=== PATIENT | female | born 1950 | race Caucasian/White ===

== ENCOUNTER → 2017-03-14 | Day surgery (SDC) | payer BC ==
[2017-03-05 15:43] VITALS: BMI 44.0
[~2017-03-14] VITALS: Ht 157.5 cm; Wt 108.6 kg
[~2017-03-14] MED LIST: ALPR0.25 PO; ASPI81TA21 PO; ATROPINE SULFATE 0.1 MG/ML 5ML SYR IV PRN; BACITRACIN 50000 UNIT VIAL ONE; BACL10TA PO; BUPIVACAINE 0.5 % 5 MG/1 ML MPF 30ML VIAL ONE; CARB100C2 PO; CARB400T3 PO; DEXAMETHASONE SOD INJ 4 MG/ML VIAL ONE; EZET10TA47 PO; EpHEDrine SULFATE 50MG/5ML SYR ONE; EpHEDrine SULFATE INJ 50 MG/ML AMP IV PRN; FENTANYL CITRATE INJ 50 MCG/1 ML 2 ML VIAL IV PRN; FENTANYL CITRATE INJ 50 MCG/1 ML 2 ML VIAL ONE; GLYCOPYRROLATE INJ 0.2 MG/ML VIAL ONE; HYDROmorphone INJ 2 MG/ML SYR/VIAL ONE; LABETALOL HCL IV 5 MG/ML 20ML IV ONE; LACTATED RINGER'S 1000ML 1,000 ML IV SCH; LEVO125T5 PO; LIDOCAINE HCL 2% 2 ML VIAL (20MG/ML) ONE; LISI-725 PO; MEPERIDINE HCL 25 MG/ML CARP IV PRN; MIDAZOLAM HCL 1 MG/ML 2ML VIAL ONE; MISC4CAP PO; MONT1TAB5 PO; MoRPHine SULFATE 2 MG/ML CARP IV PRN; NEOSTIGMINE METHYLSULFATE 5 MG/5 ML SYR ONE; ONDANSETRON INJ 2 MG/ML 2 ML VIAL IV PRN; ONDANSETRON INJ 2 MG/ML 2 ML VIAL ONE; OXYC-57 PO; OXYCODONE/ACETAMINOPHEN 5-325 TAB PO PRN; PRLSR20 PO; PROMETHAZINE HCL INJ 6.25 MG in SODIUM CHLORIDE 0.9% 50ML 50 ML IV PRN; PROPOFOL IV EMULSION 10 MG/ML 20 ML VIAL IV ONE; ROCURONIUM BROMID 50MG/5ML SYR ONE; TOPI100T20 PO
[2017-03-14 07:23] VITALS: BP 160/79; PULSE 77; TEMP 36.7; O2SAT 94; Ht 157.5 cm; Wt 108.6 kg
--- NOTE | 2017-03-14 08:18 | History & Physical Bridge Note ---
H&P Re-Evaluation Bridge Note: I have examined the patient, reviewed the History & Physical and in the interval since the performance of the History & Physical I have noted the following changes of clinical significance: No changes noted pt marked bedside
--- NOTE | 2017-03-14 08:25 | Discharge Instructions ---
Discharge Instructions Date of Service March 14, 2017. Visit Reason for Visit: Incisional Hernia Discharge Discharge Diagnosis / Problem: incisional hernia repair Discharge Goals Goal(s): Decrease discomfort Activity Recommendations Activity Limitations: as noted below Lifting Limitations: no more than 10 pounds Shower/Bathe: tomorrow Driving or Machine Use: resume 3 days after discharge (if not taking Percocet) Anesthesia . Post Anesthesia Instructions: If you have had General Anesthesia or IV Sedation: * Do not drive today. * Resume driving when surgeon permits. * Do not make important decisions or sign legal documents today. * Call surgeon for: 1. Temperature elevations greater than 101 degrees F. 2. Uncontrollable pain. 3. Excessive bleeding. 4. Persistent nausea and vomiting. 5. Medication intolerance (nausea, vomiting or rash). * For nausea and vomiting use only clear liquids such as: tea, soda, bouillon until nausea subsides, then gradually increase diet as tolerated. * If you have any concerns or questions, call your surgeon's office. If physician is unavailable and it is an emergency, call 911 or go to the nearest emergency room. . Instructions / Follow-Up Instructions / Follow-Up Dr. Quintero in 1 week, call [phone] if you do not already have an appt Diet Recommendations Recommended Home Diet: no limitations Pending Studies Studies pending at discharge: no Medical Emergencies . Who to Call and When: Medical Emergencies: If at any time you feel your situation is an emergency, please call 911 immediately. . Non-Emergent Contact Non-Emergency issues call your: Surgeon Call Non-Emergent contact if: you have a fever, temperature is above 101.5, your pain is not controlled, wound has increased redness . . "Provider Documentation" section prepared by Son Hair. .
--- NOTE | 2017-03-14 10:16 | [facility] Post Operative Brief Note ---
Immediate Operative Summary Operative Date March 14, 2017. Pre-Operative Diagnosis Incisional Hernia Post-Operative Diagnosis Incarcerated Incisional Hernia dense abd adhesions Procedure(s) Performed Laproscopic Repair of Incarcerated Incisional Hernia with 10cm Suegimesh and lyses of Adhesions Surgeon Dr. Quintero Underwriting Director Surgeon(s) Son Omalley Estimated Blood Loss 10 ml Findings ncarcerated incisional hernia with defect efrain 3 cm medial aspect of subcostal incision Specimens Urine from catheter sent for routine culture and sensitivity.
--- NOTE | 2017-03-14 11:28 | Anesthesiology Progress Note ---
Anesthesia Post Op Note Date & Time March 14, 2017 at 11:26 Vital Signs Pain Intensity: 0 Vital Signs Past 12 Hours Date Time Temp Pulse Resp B/P Pulse Ox O2 Delivery O2 Flow Rate FiO2 03/14/17 11:00 62 20 150/71 95 Nasal Cannula 2 03/14/17 10:50 61 17 152/86 98 Mask 10 03/14/17 10:40 69 24 176/79 97 Mask 10 03/14/17 10:30 73 18 160/86 97 Mask 10 03/14/17 10:24 36.2 82 14 156/82 96 Mask 10 03/14/17 07:23 36.7 77 20 160/79 94 Room Air Notes Mental Status: alert / awake / arousable, participated in evaluation Pt Amnestic to Procedure: Yes Nausea / Vomiting: adequately controlled Pain: adequately controlled Airway Patency, RR, SpO2: stable & adequate BP & HR: stable & adequate Hydration State: stable & adequate Anesthetic Complications: no major complications apparent Patient developed a fine macular rash on her chest and shoulders towards the end of the surgery. She remained hemodynamically stable and did not have pruritis in the recovery room. Chart review shows intraoperative dilaudid to be the most likely candidate. Throughout pacu course, the rash faded and had near complete resolution by the time of pacu discharge.
--- NOTE | 2017-03-14 11:36 | OPERATIVE REPORT ---
DATE OF OPERATION: 03/14/2017 PREOPERATIVE DIAGNOSIS: Incarcerated incisional hernia in the subcostal incision. POSTOPERATIVE DIAGNOSIS: Same medial aspect of the incision defect approximately 3 cm, abdominal adhesions. PROCEDURE: Laparoscopic lysis of abdominal adhesions, repair of incarcerated incisional hernia with 10 cm mesh. SURGEON: Dr. Quintero. EGG FACTORY WORKER: John Hair PA-C. OPERATION AND FINDINGS: SUMMARY: The patient was brought into the operating room theater. Callahan catheter was placed. The abdomen was prepped with Betadine scrubbing solution and properly draped. Systemic antibiotics were given. I made a small incision in the umbilical area in the previously made incision from where she had a hernia repair there, went through subcutaneous tissue. We could not enter the abdomen. Therefore, I enlarged the incision sufficiently enough and able to elevate the abdominal wall with Ulisses clamps, made an incision identified that the patient had this repaired with some mesh previously; therefore, I made an incision through it, used 0 Vicryl suture as stay suture. We entered the peritoneal cavity with a 5 mm trocar. Point of entry inspected, CO2 insufflated and no injury identified, but we were able to see the patient had significant adhesions in the epigastric area. Also we were able then to place a 5 mm right upper quadrant port more in the right flank and 5 mm left upper quadrant port. We placed a camera in the subcostal port on the right and visualized the umbilical opening where we identified that the patient had omental adhesions to the anterior abdominal wall in that area, but there was no bowel and there was no evidence of any injury as we first went in. We then systematically took down all the adhesions to the anterior abdominal wall which was mostly confined just inferior to the falciform ligament. We went on and dissected out and we were able to see the incarcerated omentum into the hernial sac which was quite prominent. We at this point then were able to enlarge the opening and the hernial sac and then we were able to deliver the incarcerated omentum into the abdomen. Some fluid was appreciated in the hernial sac. There was no bowel content. Once we had identified this then I took the liberty of freeing up the falciform ligaments circumferentially around the defect since it was pulled in there and all the way to the left of the midline, so we got into the muscular fascial planes without any fatty tissue. Therefore Surgimesh would be incorporated more precisely onto the defect. We measured the defect was about a 3 cm defect. At this point we then elected to bring a 10 cm Surgimesh up onto the field, placed it through the umbilical opening into the abdomen and elevated with nylon suture centrally located into the defect. We used a ProTack systematically stapled the mesh onto the abdominal wall. I also placed in the lateral position a 0 Prolene suture tacking down the edge of the mesh onto the abdominal wall by passing the suture from the skin inside the abdomen with a Ganesh-Cut suture passer. The repair appeared to be solid. Hemostasis appeared satisfactory. At this point, individual trocars were removed. We took the nylon suture from the central portion of the original mesh. We closed then the fascial stitch in the umbilical area in the previous incision with [id number] x2 0 Prolene, 0 Dexon subcutaneously, 4-0 Monocryl skin edges. Steri-Strips applied. The procedure was tolerated well by the patient. Estimated blood loss approximately 10 mL. The patient was taken to recovery room in good condition. I attest to the content of the Intraoperative Record and any orders documented therein. Any exceptions are noted below. MTDD
[2017-03-14 11:40] VITALS: BP 135/59; PULSE 60; TEMP 36.5; O2SAT 96
[2017-03-14 12:11] VITALS: BP 133/57; PULSE 63; TEMP 36.5; O2SAT 94
[2017-03-14 12:40] VITALS: BP 133/57; PULSE 63; TEMP 36.3; O2SAT 98
[2017-03-14 13:39] VITALS: BP 133/57; PULSE 67; O2SAT 97
--- NOTE | 2017-03-18 11:52 | EDITING REQUIRED CODING QUERY ---
CQSUPPORTING DIAGNOSIS NEEDED A supporting diagnosis is required for the test/procedure performed on this patient in order for us to be reimbursed by the patient's insurance. Please provide a supporting diagnosis for the following test/procedure listed below next to the test name along with your signature. *If there is no additional diagnosis for this patient that would support the following test/procedure please document that below next to the test/procedure. Test(s)/Procedure(s) that require a supporting diagnosis: DAXA 03/14/17 URINE CULTURE Provider Signature: Date: Thank you Anya Null [employer] Once completed, please kindly fax back to [phone] For questions please call [phone]
== END | disposition home or self-care (01) ==
LOC: C.ACU 06:54
PROVIDERS: ATTEND Surgery
DX: K43.2 Incisional hernia without obstruction or gangrene (principal); K21.9 Gastro-esophageal reflux disease without esophagitis; E78.5 Hyperlipidemia, unspecified; I10 Essential (primary) hypertension; E03.9 Hypothyroidism, unspecified; G47.30 Sleep apnea, unspecified; Z90.49 Acquired absence of other specified parts of digestive tract; Z96.659 Presence of unspecified artificial knee joint; Z79.82 Long term (current) use of aspirin; Z80.3 Family history of malignant neoplasm of breast; Z82.49 Family history of ischemic heart disease and other diseases of the circulatory system; Z79.899 Other long term (current) drug therapy

== ENCOUNTER → 2017-04-11 | Outpatient (CLI) | payer BC ==
[~2017-04-11] MED LIST changes: -ATROPINE SULFATE 0.1 MG/ML 5ML SYR IV PRN; -BACITRACIN 50000 UNIT VIAL ONE; -BUPIVACAINE 0.5 % 5 MG/1 ML MPF 30ML VIAL ONE; -DEXAMETHASONE SOD INJ 4 MG/ML VIAL ONE; -EpHEDrine SULFATE 50MG/5ML SYR ONE; -EpHEDrine SULFATE INJ 50 MG/ML AMP IV PRN; -FENTANYL CITRATE INJ 50 MCG/1 ML 2 ML VIAL IV PRN; -FENTANYL CITRATE INJ 50 MCG/1 ML 2 ML VIAL ONE; -GLYCOPYRROLATE INJ 0.2 MG/ML VIAL ONE; -HYDROmorphone INJ 2 MG/ML SYR/VIAL ONE; -LABETALOL HCL IV 5 MG/ML 20ML IV ONE; -LACTATED RINGER'S 1000ML 1,000 ML IV SCH; -LIDOCAINE HCL 2% 2 ML VIAL (20MG/ML) ONE; -MEPERIDINE HCL 25 MG/ML CARP IV PRN; -MIDAZOLAM HCL 1 MG/ML 2ML VIAL ONE; -MoRPHine SULFATE 2 MG/ML CARP IV PRN; -NEOSTIGMINE METHYLSULFATE 5 MG/5 ML SYR ONE; -ONDANSETRON INJ 2 MG/ML 2 ML VIAL IV PRN; -ONDANSETRON INJ 2 MG/ML 2 ML VIAL ONE; -OXYCODONE/ACETAMINOPHEN 5-325 TAB PO PRN; -PROMETHAZINE HCL INJ 6.25 MG in SODIUM CHLORIDE 0.9% 50ML 50 ML IV PRN; -PROPOFOL IV EMULSION 10 MG/ML 20 ML VIAL IV ONE; -ROCURONIUM BROMID 50MG/5ML SYR ONE
== END | disposition home or self-care (01) ==
LOC: C.PATHSPEC 17:24
PROVIDERS: ATTEND Obstetrics & Gynecology
DX: N95.0 Postmenopausal bleeding (principal); N84.1 Polyp of cervix uteri

== ENCOUNTER → 2017-04-24 | Outpatient (CLI) | payer BC ==
--- NOTE | 2017-04-25 09:07 | MAMMOGRAPHY REPORT ---
BILATERAL DIGITAL SCREENING MAMMOGRAM TOMOSYNTHESIS WITH CAD: 04/24/2017 CLINICAL HISTORY: Routine screening. Patient has no complaints. TECHNIQUE: Breast tomosynthesis in addition to standard 2D mammography was performed. Current study was also evaluated with a Computer Aided Detection (CAD) system. COMPARISON: No prior exams were available for comparison. BREAST COMPOSITION: There are scattered areas of fibroglandular density in both breasts. FINDINGS: There are scattered benign-appearing microcalcifications in the breasts. No new suspicious mass, architectural distortion or cluster of microcalcifications is seen. IMPRESSION: ACR BI-RADS CATEGORY 1: NEGATIVE There is no mammographic evidence of malignancy. A 1 year screening mammogram is recommended. The pa tient will receive written notification of the results. Approximately 10% of breast cancers are not detected with mammography. A negative mammographic report should not delay biopsy if a clinically suggestive mass is present. Nicolette Grimes M.D. ay/:04/24/2017 16:10:28 [employer] Member: Crystal MURRAY(Paula)(Vasiliy)(EPI), [facility] letter sent: Normal 1/2 BI-RADS Code: ACR BI-RADS Category 1: Negative
== END | disposition home or self-care (01) ==
LOC: C.MAMM 14:06
PROVIDERS: ATTEND Family Medicine
DX: Z12.31 Encounter for screening mammogram for malignant neoplasm of breast (principal)

== ENCOUNTER → 2017-04-29 | Outpatient (CLI) | payer BC ==
[2017-04-29 09:49] LABS: ALT/SGPT 20 U/L (12-78); BLOOD UREA NITROGEN 12 mg/dl (7-18); BUN/CREATININE RATIO 16.7 (10-20); CALCIUM 8.4 mg/dl (8.5-10.1); CARBON DIOXIDE 28 mmol/L (21-32); CHLORIDE 104 mmol/L (98-107); CHOLESTEROL 205 mg/dl (0-200); CREATININE 0.73 mg/dl (0.60-1.20); GLUCOSE 95 mg/dl (70-99); POTASSIUM 3.9 mmol/L (3.5-5.1); SODIUM 137 mmol/L (136-145); TRIGLYCERIDES 93 mg/dl (0-150); VERY LOW DENSITY LIPOPROT CALC 19 mg/dl
[2017-04-29 10:00] LABS: CHOLESTEROL/HDL RATIO 3.2; HDL CHOLESTEROL 64 mg/dl
== END | disposition home or self-care (01) ==
LOC: C.LAB1850 08:16
PROVIDERS: ATTEND Family Medicine
DX: E78.5 Hyperlipidemia, unspecified (principal); I10 Essential (primary) hypertension; E03.9 Hypothyroidism, unspecified; G50.0 Trigeminal neuralgia

== ENCOUNTER → 2018-03-11 | Outpatient (CLI) | payer BC ==
[~2018-03-11] MED LIST changes: +ASPI-319 PO; -ASPI81TA21 PO; -OXYC-57 PO
[2018-03-11 14:07] LABS: ALT/SGPT 19 U/L (12-78); BLOOD UREA NITROGEN 17 mg/dl (7-18); CALCIUM 8.4 mg/dl (8.5-10.1); CARBON DIOXIDE 28 mmol/L (21-32); CHOLESTEROL 193 mg/dl (0-200); CREATININE 0.74 mg/dl (0.60-1.20); GLUCOSE 86 mg/dl (70-99); POTASSIUM 3.5 mmol/L (3.5-5.1); SODIUM 139 mmol/L (136-145)
[2018-03-11 14:17] LABS: LDL CHOLESTEROL CALCULATED 108 mg/dl
== END | disposition home or self-care (01) ==
LOC: C.LABMFLN 08:49
PROVIDERS: ATTEND Family Medicine
DX: Z00.00 Encounter for general adult medical examination without abnormal findings (principal); E78.5 Hyperlipidemia, unspecified; E03.9 Hypothyroidism, unspecified; I10 Essential (primary) hypertension

== ENCOUNTER → 2018-03-12 | Outpatient (CLI) | payer BC | END | disposition home or self-care (01) | LOC: C.LABMFLN 10:08 | PROVIDERS: ATTEND Family Medicine | DX: R35.0 Frequency of micturition (principal) ==

== ENCOUNTER → 2018-03-14 | Outpatient (CLI) | payer BC ==
--- NOTE | 2018-03-14 11:10 | DIAGNOSTIC IMAGING REPORT ---
BLADDER ULTRASONOGRAPHY CLINICAL HISTORY: URINARY FREQUENCY COMPARISON STUDY: CT scan dated 08/18/2016 FINDINGS: The bladder appears sonographically normal. Bilateral ureteral jets were visualized. The prevoid volume was 150 cc. The post void volume was 8 cc. IMPRESSION: Normal study Electronically signed by: Israel Lopez M.D. 03/14/2018 11:09 AM Dictated Date/Time: 03/14/2018 11:08 AM
== END | disposition home or self-care (01) ==
LOC: C.ULTR 10:30
PROVIDERS: ATTEND Family Medicine
DX: R35.0 Frequency of micturition (principal)

== ENCOUNTER 2019-04-20 06:22 | Inpatient (IN) ==
--- NOTE | 2019-03-24 12:05 | Anesthesiology Consultation ---
Date of Service March 24, 2019 Assessment & Plan (1) Encounter for pre-operative examination: PCP Clearance 03/31/19 = "appears to be average operative risk." Chart Review Chart Review: Acceptable Risk for Surgery and Patient seen in Pre Admission Testing Teaching & Discussion Instructed NPO after midnight before surgery, except medications with 15 cc of water. Medication instructions provided according to the PAT guidelines. History Surgery Operation Date: 04/20/19 07:00 Proposed Procedures p Left Total Knee Arthroplasty - Cosmo Puckett MD Height/Weight Height: 5 ft 2.5 in Weight: 109.2 kg Allergies Allergy/AdvReac Type Severity Reaction Status Date / Time nitrous oxide Allergy Severe laughing Unverified 03/17/19 08:43 gas = couldn't breath NSAIDS (Non-Steroidal Allergy Severe RAPID HR, Verified 03/17/19 08:43 Anti-Inflamma RESP DISTRESS etodolac Allergy Unknown RAPID Unverified 03/17/19 08:43 HEARTBEAT, RESPIRATORY DISTRESS naproxen Allergy Unknown RAPID Unverified 03/17/19 08:43 HEART BEATS, RESPIRATORY DISTRESS ibandronate sodium AdvReac Severe SEVERE Verified 03/17/19 08:44 MUSCLE AND BONE PAIN Medications Home Medications Medication Instructions Recorded Confirmed Last Taken aspirin 81 mg PO HS 10/22/18 03/17/19 03/16/19 carbamazepine 400 mg PO BID 10/22/18 03/17/19 03/16/19 ezetimibe 10 mg PO HS 10/22/18 03/17/19 03/16/19 levothyroxine 175 mcg PO QAM 10/22/18 03/17/19 03/17/19 lisinopril 20 mg PO QPM 10/22/18 03/17/19 03/16/19 montelukast [Singulair] 10 mg PO QPM 10/22/18 03/17/19 03/16/19 omeprazole 20 mg PO QAM 10/22/18 03/17/19 03/16/19 topiramate [Topamax] 200 mg PO BID 10/22/18 03/17/19 03/16/19 Bacillus coagulans [Digestive 1 tab PO DAILY 03/17/19 03/17/19 03/16/19 Advantage] alprazolam 0.25 mg PO UD PRN 03/17/19 03/17/19 Unknown calcium carbonate-vitamin D3 1 tab PO BID 03/17/19 03/17/19 03/16/19 [Caltrate with Vitamin D3] cholecalciferol (vitamin D3) 1,000 unit PO DAILY 03/17/19 03/17/19 03/16/19 [Vitamin D3] Past Medical History Medical History Acid reflux Anxiety Family history of reaction to anesthesia SISTER - N/V High cholesterol Hypertension Hypothyroid Sleep apnea CPAP Trigeminal neuralgia Urinary incontinence & FREQUENCY...HAS PROLAPSED BLADDER Exercise / Class Metabolic Activity II 4-5 Yardwork/Stairs/Walk up hill (Denies CP or SOB with stairs, does daily at home) Past Family History Family History Mother History of COPD Father History of heart attack Other History of heart disease History of high blood pressure Past Surgical History Surgical History Status post cholecystectomy (Resolved) H/O: hysterectomy History of section History of cholecystectomy History of colonoscopy History of endoscopy History of hernia surgery INCISIONAL History of surgery GAMMA KNIFE, FACE X 2 History of total right knee replacement 2011 [facility] History of umbilical hernia repair Past Anesthesia History Sister = PONV PT HAD "A HARD TIME WAKING UP & SEVERE SHAKING WITH UMBILICAL HERNIA REPAIR" ( [facility] 2008) BUT NO ISSUES WITH MORE RECENT SURGERIES. 2011 TKA @ [facility] = SAB + PNB WITHOUT ISSUES. History of PONV No Hx of PONV and Hx of Motion Sickness Social History Smoking Status: Never smoker Do You Dip or Chew Tobacco: No Hx Alcohol Use: No Hx Substance Use: No substance use type: does not use Review of Systems Pt denies any recent chest pain, shortness of breath, cough, fever or URI. +occ palpitations with anxiety Physical Exam Vital Signs BP: 148/82 P: 76bpm SPO2: 97% RA T: 97.8 R: 18 Constitutional + morbidly obese ENMT Mouth: + dental restorations (few crowns) and + chipped teeth; no loose teeth Thyromental Distance: > or= 3.5 Finger Breadths (4) Mallampati Class: II Neck + short neck and + thick neck; neck extension not limited Respiratory normal respiratory effort Auscultation: lungs clear to auscultation bilaterally Cardiovascular Rate/Rhythm: regular rate and regular rhythm Heart Sounds: no murmur Vessels: no carotid bruit Extremities: no edema Testing Laboratory Results 03/24/19 12:12 03/24/19 12:12 03/24/19 03/24/19 03/24/19 12:12 12:12 12:12 PT 10.0 INR 1.0 APTT 27.3 Hemoglobin A1c 5.6 Urine Color Urine Appearance Urine pH Ur Specific [place] Urine Protein Urine Glucose (UA) Urine Ketones Urine Nitrite Ur Leukocyte Esterase Blood Type O Positive Antibody Screen NEGATIVE 03/24/19 12:12 PT INR APTT Hemoglobin A1c Urine Color Yellow Urine Appearance Clear Urine pH 7.0 Ur Specific [place] 1.013 Urine Protein Negative Urine Glucose (UA) Negative Urine Ketones Negative Urine Nitrite Negative Ur Leukocyte Esterase Negative Blood Type Antibody Screen Electrocardiogram Date: 10/22/18 Findings: + NSR @ (69) Chest X-Ray Date: 10/22/18 Findings: + NAD
--- NOTE | 2019-03-24 12:12 | PAT Medication Instructions ---
Medication Instructions Date of Service March 24, 2019 Home Medications aspirin 81 mg PO HS carbamazepine 400 mg PO BID ezetimibe 10 mg PO HS levothyroxine 175 mcg PO QAM lisinopril 20 mg PO QPM montelukast [Singulair] 10 mg PO QPM omeprazole 20 mg PO QAM topiramate [Topamax] 200 mg PO BID Bacillus coagulans [Digestive Advantage] 1 tab PO DAILY alprazolam 0.25 mg PO UD PRN calcium carbonate-vitamin D3 1 tab PO BID cholecalciferol (vitamin D3) 1,000 unit PO DAILY DO NOT take the morning of surgery Bacillus coagulans [Digestive Advantage] 1 tab PO DAILY calcium carbonate-vitamin D3 1 tab PO BID cholecalciferol (vitamin D3) 1,000 unit PO DAILY Take morning of surgery With a small sip of water, OTHERWISE NOTHING TO EAT OR DRINK AFTER MIDNIGHT: carbamazepine 400 mg PO BID levothyroxine 175 mcg PO QAM omeprazole 20 mg PO QAM topiramate [Topamax] 200 mg PO BID alprazolam 0.25 mg PO UD PRN (if needed) Take evening before surgery aspirin 81 mg PO HS carbamazepine 400 mg PO BID ezetimibe 10 mg PO HS lisinopril 20 mg PO QPM montelukast [Singulair] 10 mg PO QPM topiramate [Topamax] 200 mg PO BID alprazolam 0.25 mg PO UD PRN (if needed) calcium carbonate-vitamin D3 1 tab PO BID Other Notes If you have any questions please call us at [phone] or [phone] or [phone] or [phone]
[2019-03-24 12:49] LABS: Basophils # (auto) 0.01 K/uL (0-0.2); Basophils % (auto) 0.1 %; Eosinophils # (auto) 0.13 K/uL (0-0.5); Eosinophils % (auto) 1.6 %; Hematocrit (blood only) 36.1 % (37-47); Hemoglobin 12.1 g/dL (12.0-16.0); Immature Granulocytes # (auto) 0.01 K/uL (0.00-0.02); Immature Granulocytes % (auto) 0.1 %; Lymphocytes # (auto) 1.84 K/uL (1.2-3.4); Lymphocytes % (auto) 23.3 %; Mean Corpuscular Hgb Conc 33.5 g/dL (32-36); Mean Corpuscular Volume 88.5 fL (80-100); Mean Platelet Volume 8.6 fL (7.4-10.4); Monocytes # (auto) 0.58 K/uL (0.11-0.59); Monocytes % (auto) 7.3 %; Neutrophils # (auto) 5.34 K/uL (1.4-6.5); Neutrophils % (auto) 67.6 %; Platelet Count 277 K/uL (130-400); Red Blood Count 4.08 M/uL (4.2-5.4); White Blood Count 7.91 K/uL (4.8-10.8)
[2019-03-24 12:55] LABS: Partial Thromboplastin Time 27.3 Seconds (21.0-31.0)
[2019-03-24 13:01] LABS: Estimated Average Glucose 114 mg/dl; Hemoglobin A1C 5.6 % (4.5-5.6)
[2019-03-24 13:38] LABS: Appearance Urine Clear (Clear); Bilirubin Urine Negative (Negative); Blood Urine Negative (Negative); Color Urine Yellow; Glucose Urine UA Negative (Negative); Ketones Urine Negative (Negative); Leukocyte Esterase Urine Negative (Negative); Nitrite Urine Negative (Negative); Protein Urine Negative (Negative); Specific Gravity Urine 1.013 (1.000-1.030); Urobilinogen Urine Negative (Negative)
[2019-03-24 14:44] LABS: Albumin Level 3.4 gm/dl (3.4-5.0); Calcium 9.3 mg/dl (8.5-10.1); Creatinine Clr Calc Pharmacy 80.9 ml/min; Est GFR (African American) 92.1; Est GFR (Non-African American) 79.5; Potassium 4.2 mmol/L (3.5-5.1)
--- NOTE | 2019-04-19 19:31 | History and Physical Report ---
DATE OF ADMISSION: 04/20/2019 CHIEF COMPLAINT: Chronic left knee pain. HISTORY OF PRESENT ILLNESS: This is a 69-year-old female patient of Dr. Puckett'amanda complaining of chronic left knee pain and instability, longstanding, now progressively getting worse. The patient has failed conservative treatment including intraarticular injections, anti-inflammatories, home physical therapy and use of a wrap. The patient has increased pain with weightbearing activities and her pain does interfere with her activities of daily living. The patient has been diagnosed with end-stage osteoarthritis per clinical and radiographic exam and wishes to proceed with a left total knee arthroplasty. PAST MEDICAL HISTORY: Hypertension, hypercholesterolemia, palpations secondary to anxiety, sleep apnea with use of CPAP, hypothyroidism, spine problems, osteoarthritis, sciatica, acid reflux and obesity. SOCIAL HISTORY: Nonsmoker, nondrinker. PAST SURGICAL HISTORY: , cholecystectomy, right knee replacement, umbilical hernia repair and partial hysterectomy. FAMILY HISTORY: Noncontributory. REVIEW OF SYSTEMS: Chronic left knee pain and instability; otherwise, denies any shortness of breath, chest pain, nausea, vomiting or any other joint complaints. MEDICATIONS: 1. Topiramate 200 mg twice daily. 2. Ezetimibe 10 mg at bedtime. 3. Singulair 10 mg daily. 4. Aspirin 81 mg daily. 5. Alprazolam 0.25 mg twice daily as needed. 6. Levothyroxine 175 mcg daily. 7. Carbamazepine 400 mg 3 times daily. 8. Omeprazole 20 mg every other day. 9. Shingrix 50 mcg subQ every 6 months. 10. Tylenol 325 mg as needed. 11. Lisinopril 20 mg daily. 12. Probiotic oral capsule daily. 13. Bactrim twice daily. This may be ended by the time of surgery. 14. Ibandronate 150 mg 1 tablet monthly. 15. Calcium 600 with vitamin D twice daily. ALLERGIES: LODINE, BREATHING PROBLEMS; ALEVE AND NAPROSYN, BREATHING PROBLEMS; HYDROCHLOROTHIAZIDE, GI UPSET; DITROPAN, GI UPSET; SEPTRA, GI UPSET; ALL ANTI-INFLAMMATORIES, SHE HAS GYNECOLOGICAL. PHYSICAL EXAMINATION: GENERAL: Well-developed, well-nourished 69-year-old female in no acute distress. She is alert and oriented x3 and pleasant. HEENT: Normocephalic, atraumatic. Extraocular motions are intact. Pupils are equal, reactive to light. HEART: Regular rate and rhythm, no murmurs. LUNGS: Clear. ABDOMEN: Soft, nontender, bowel sounds present. EXTREMITIES: Left knee range of motion of 0-95 degrees with the varus deformity. She has medial joint line tenderness with a mild effusion. She has crepitation with passive range of motion. She has 5/5 strength with pain. NEUROLOGIC: Neurovascularly, she is intact in her left lower extremity. DIAGNOSES: Left knee end-stage osteoarthritis, hypertension, hypercholesterolemia, palpations secondary to anxiety, sleep apnea with the use of continuous positive airway pressure, trigeminal neuralgia, hypothyroidism, spine problems, sciatica, acid reflux and obesity. PLAN: The patient was advised of her diagnosis. Indications, risks, benefits, postop course have all been reviewed. The patient wished to proceed with a left total knee arthroplasty. Necessary consent forms, preoperative testing and clearances will be obtained.
[~2019-04-20 06:22] MED LIST changes: +ACETAMINOPHEN 500 MG TAB PO SCH; -ALPR0.25 PO; -ASPI-319 PO; -BACL10TA PO; -CARB100C2 PO; -CARB400T3 PO; +CEFAZOLIN 2000MG 2,000 MG/15 ML SYR IV SCH; -EZET10TA47 PO; +FAMOTIDINE 20 MG TAB PO SCH; +GABAPENTIN 300 MG PO SCH; -LEVO125T5 PO; -LISI-725 PO; +LR 500ML BOLUS, THEN 15ML/HR IV SCH; +METOCLOPRAMIDE HCL 10 MG TABLET PO SCH; -MISC4CAP PO; -MONT1TAB5 PO; -PRLSR20 PO; +ROPIVACAINE 0.5% HCL/PF 150 MG, BUPIVACAINE 0.5% MPF 30 ML, EPINEPHrine 30MG/30ML (OR U... INFIL SCH; -TOPI100T20 PO; +TRANEXAMIC ACID 1,000 MG **IV Pre-op IV SCH; +TRANEXAMIC ACID 1,000 MG x 1 **For Topical Use TOP SCH; +dexAMETHasone 4 MG TAB PO SCH
[2019-04-20] MEDS ORDERED: TRANEXAMIC ACID 1,000 MG **IV Intra-op IV SCH (06:30)
[2019-04-20] MEDS ORDERED: BUPIVACAINE 0.5 % 5 MG/1 ML PF 10ML VIAL ONE (06:30)
[2019-04-20] MEDS ORDERED: ROPIVACAINE 0.5% 5 MG/ML 30 ML VIAL ONE (06:30)
[2019-04-20] MEDS ORDERED: EPINEPHrine INJ 1 MG/ML AMP ONE (06:48)
--- NOTE | 2019-04-20 06:52 | History & Physical Bridge Note ---
Date of Service April 20, 2019 History & Physical Bridge Note I have examined the patient, reviewed the History & Physical and in the interval since the performance of the History & Physical I have noted the following changes of clinical significance: no changes noted
[2019-04-20] MEDS ORDERED: fentaNYL citrate 100 MCG/2 ML VIAL ONE (07:47)
[2019-04-20] MEDS ORDERED: MIDAZOLAM HCL 1 MG/ML 2ML VIAL ONE (07:48)
[2019-04-20] MEDS ORDERED: ORTHO JOINT ANESTHETIC ONE (07:57)
[2019-04-20] MEDS ORDERED: BACITRACIN INJ 50,000 UNIT VIAL ONE (07:57)
[2019-04-20] MEDS ORDERED: PROPOFOL IV EMULSION 10 MG/ML 20 ML VIAL IV ONE (08:51)
[2019-04-20] MEDS ORDERED: ATROPINE SULFATE 0.1 MG/ML 10ML SYR IV PRN (09:51)
[2019-04-20] MEDS ORDERED: ePHEDrine sulfate 50 MG/ML AMP IV PRN (09:51)
--- NOTE | 2019-04-20 09:55 | Operative Report ---
Post Operative Report Pre & Post Diagnosis Operation Date: 04/20/19 09:20 Pre-Op Diagnosis: Left knee end-stage osteoarthritis, obesity BMI 43.2 Post-Op Diagnosis: Left knee end-stage osteoarthritis, obesity BMI 43.2 Procedure Operation Date: 04/20/19 09:20 Actual Procedures p Left Total Knee Arthroplasty(Left) increased difficulty BMI 43.2- Cosmo Puckett MD Surgeon Cosmo Puckett MD Band And Cuff Cutter Kendell CHILDERS Estimated Blood Loss 5 Findings Consistent with Post-Op Diagnosis Specimens Bone cuts Drains 2 Hemovac Anesthesia Type MAC Spinal Regional Complications none None Disposition Accompanied Patient To Recovery: No Disposition: Recovery Room Indications 69-year-old female with chronic left knee osteoarthritis. She has successful right knee replacement in the past. Her left knee is [id number] patellofemoral joint with a laterally translated patella with bone loss of the patella. Patient has medial compartment OA with varus knee Description of Procedure The patient was identified and taken to the operating room and anesthetized under spinal MAC regional block. Patient was placed supine on the the operating table. A pneumatic tourniquet was placed about the left obese upper thigh. The knee exam demonstrated obese knee normal range of motion lateral tracking patella patellofemoral crepitation. The involved leg was elevated exsanguinated with Esmarch bandage and the pneumatic tourniquet was raised to 350 millimeters mercury. A longitudinal incision was made across the anterior knee. Skin flaps were elevated. An incision was made into the medial retinaculum and extended up into the mid third of the quadriceps tendon and extended down to the tibial tubercle. Intra-articular findings demonstrated bone loss patellofemoral joint [id number] with a thin patella large osteophytes lateral tracking patella. Medial compartment OA grade 4 tricompartmental osteophytes varus knee. The knee was exposed by excising cruciate ligaments and menisci. The infrapatellar fat pad was resected. The fat pad over the anterior femur at the upper aspect of the articular surface was resected for placement of the component in that area. A subperiosteal peel lateral release was performed around the patella. To balance the knee releases were performed medially posterior medially and pie crusting MCL. The Gunn [employer] Nephew journey 2.0 total knee arthroplasty system was utilized for the procedure. The custom femoral cutting guide was pinned in position. The distal femoral cut was made. The size 5, 5 in 1 cutting block was placed. The anterior posterior and chamfer cuts were made. The knee was extended and a free hand cut technique was performed to the patella. The patella with was measured and the width was reproduced using a 32 patella component. 3 drill holes are made for the patella component pegs. The tibia was then subluxed. The custom tibial cutting block was pinned in position and the proximal tibial cut was made with the oscillating saw. The size 3 tibial trial was externally rotated in line with the tibial tubercle and pinned in position. The punch for the stem was used. The femoral trial was inserted and centered the notch cutting devices were used and the collet was placed. Tibial trials were used for the insert. The size 11 trial gave balanced ligaments through full range of motion. Patella tracking was assessed with range of motion. The patella tracked laterally so a formal lateral release was performed leaving as much of the synov ium intact as possible. The patella tracked centrally.. The trials were removed. The Orthomix anesthetic cocktail was injected per protocol. The cut bone surfaces and soft tissue were copiously irrigated with antibiotic solution with bacitracin. The final components were cemented with Simplex cement. The final components were Gunn [employer] Nephew journey 2.0 size 5 left femur, 3 primary tibial baseplate, 11 mm posterior stabilized polyethylene, 32 symmetrical patella. While the cement cured the Betadine soak was used per protocol. When the cement cured the knee was copiously irrigated with pulsatile lavage antibiotic solution with bacitracin. 2 drains were brought out laterally connected to Hemovac. The quadriceps tendon and medial retinaculum were closed with interrupted [id number] #1 Vicryl sutures. The knee was taken through full range of motion and repair was secure. The subcutaneous tissues were closed with 2-0 Vicryl sutures. The skin was closed with chana. A sterile dressing was applied. The tourniquet was let down and the patient had good capillary refill to the extremity. The patient tolerated the procedure well. There was some increased level difficulty due to morbid obesity. My physician learning support assistant Kendell CHILDERS assisted in the procedure including prepping draping leg positioning soft tissue retraction instrument management and assisted in the closure ,dressings application and will participate in postoperative care the patient. I attest to the content of the Intraoperative Record and any orders documented therein. Any exceptions are noted below.
--- NOTE | 2019-04-20 10:58 | XRay Report ---
XR knee LT 2V routine CLINICAL HISTORY: 69 years-old Female presenting with Surgical Post Op. TECHNIQUE: Frontal and crosstable lateral views of the left knee were obtained. COMPARISON: None. FINDINGS: Postsurgical changes of total left knee arthroplasty with patellar resurfacing. No periprosthetic fra cture or periprosthetic lucency. The orientation of the tibial plateau component may be within the ex pected range of normal relative to the long axis of the tibia. No significant malalignment. A surgica l drain is in place. Overlying skin chana. Expected soft tissue emphysema. IMPRESSION: Expected postsurgical appearance status post total left knee arthroplasty with patellar resurfacing. Electronically signed by: Freddy Cardenas M.D. 04/20/2019 10:57 AM
--- NOTE | 2019-04-20 10:58 | Anesthesiology Progress Note ---
Date of Service April 20, 2019 Anesthesia Post Procedure Vital Signs Vital Signs: Temp Pulse Pulse Resp BP Pulse Ox 04/20/19 10:35 67 14 133/62 100 04/20/19 10:25 36.9 C 76 14 132/60 95 04/20/19 06:55 36.5 C 81 20 176/95 H 98 Pain Intensity Left Knee: Pain Intensity: 0 Transfer of Care Handoff Completed per policy Notes Mental Status: alert / awake / arousable Patient Amnestic to Procedure: Yes Nausea / Vomiting: adequately controlled Pain: adequately controlled Airway Patency, RR, SpO2: stable & adequate BP & HR: stable & adequate Hydration State: stable & adequate Neuraxial Anesthesia: was administered and sensory block is resolving Anesthetic Complications: no major complications apparent
[2019-04-20] MEDS ORDERED: METOCLOPRAMIDE HCL INJ 5 MG/ML 2 ML VIAL IV PRN (11:21)
[2019-04-20] MEDS ORDERED: MAGNESIUM HYDROXIDE SUSP 30 ML UDC PO PRN (11:21)
[2019-04-20] MEDS ORDERED: NALOXONE HCL 0.4 MG/1 ML VIAL/CARP IV PRN (11:21)
[2019-04-20] MEDS ORDERED: BISACODYL 10 MG SUPP PR PRN (11:21)
[2019-04-20] MEDS ORDERED: ALPRAZolam 0.25 MG TABLET PO PRN (11:21)
[2019-04-20] MEDS ORDERED: NO NSAIDS SCH (11:21)
[2019-04-20] MEDS: SODIUM CHLORIDE 0.9% 1000ML 1,000 ML IV SCH ×2 (13:05→21:02)
[2019-04-20] MEDS: ACETAMINOPHEN 500 MG TAB PO SCH ×2 (13:33→21:01)
--- NOTE | 2019-04-20 13:54 | Hospitalist Consultation ---
Date of Consultation April 20, 2019 Assessment & Plan (1) Knee pain, chronic: s/p L TKA on 04/20 Pre-op Hb 12.1 (2) Respiratory abnormality, unspecified: Not feeling frankly SOB now and no hx of this as outpt, but notes that she is unable to move her IS as well as recommended States hx of significant second hand smoke exposure while growing up and two sisters with COPD despite no personal cigarette use Advised that this could be some lingering effects of anesthesia and intubation Pt should continue to use IS during admission and even at home to monitor for improvement If no ongoing improvement, pt could benefit from PFTs as outpt Pt advised to discuss with PCP if it is an ongoing issue (3) Urinary incontinence: No current meds due to hx of ineffectiveness (4) DONNY (obstructive sleep apnea): Home CPAP, pt has with her (5) Hypothyroid: continue home meds (6) Hyperlipidemia: continue home meds (7) HTN (hypertension): continue home meds (8) GERD (gastroesophageal reflux disease): continue home meds (9) Anxiety: States she has not used xanax in years, but does keep a current rx "just in case" (10) Trigeminal neuralgia: continue home meds (11) DVT prophylaxis: As per ortho History of Present Illness Reason for Consultation: Medical manamgement Requesting Physician: Dr. Puckett Attending Physician: Cosmo Puckett MD History of Present Illness 69 y/o F who was admitted on 04/20 s/p L TKA with Dr. Puckett. Pt is doing well post-op. Tolerating PO without issue. Pt denies fever, SOB, chest pain, abd pain, n/v/c/d. She has no pain to her LE at this time and feels this surgery is much more advanced than when she had her other knee done in 2011. She is very happy with her current status. Pt states she does occasionally get LE swelling, but not so far today. FH is noted for anesthesia rxn. Pt states her sister has severe n/v s/p anesthesia. Pt states that she herself has had some trouble in the past, but not as extreme as her sister. She has had no issues yet today. Pt does note that she is having some difficulty with her incentive spirometer. She is not able to move it as high as recommended. She does note that both of her sisters have been dx with COPD, despite neither having ever smoked due to second hand smoke exposure growing up. Pt herself was also never a smoker. She has never had breathing issues in the past and has therefore not been tested. Allergies Allergy/AdvReac Type Severity Reaction Status Date / Time nitrous oxide Allergy Severe laughing Verified 04/20/19 06:46 gas = couldn't breath NSAIDS (Non-Steroidal Allergy Severe RAPID HR, Verified 04/20/19 06:46 Anti-Inflamma RESP DISTRESS etodolac Allergy Unknown RAPID Verified 04/20/19 06:46 HEARTBEAT, RESPIRATORY DISTRESS naproxen Allergy Unknown RAPID Verified 04/20/19 06:46 HEART BEATS, RESPIRATORY DISTRESS ibandronate sodium AdvReac Severe SEVERE Verified 04/20/19 06:46 MUSCLE AND BONE PAIN Home Medications Home Medications Medication Instructions Recorded Confirmed Type aspirin 81 mg PO HS 10/22/18 04/20/19 History carbamazepine 400 mg PO BID 10/22/18 04/20/19 History ezetimibe 10 mg PO HS 10/22/18 04/20/19 History levothyroxine 175 mcg PO QAM 10/22/18 04/20/19 History lisinopril 20 mg PO QPM 10/22/18 04/20/19 History montelukast [Singulair] 10 mg PO QPM 10/22/18 04/20/19 History omeprazole 20 mg PO QAM 10/22/18 04/20/19 History topiramate [Topamax] 200 mg PO BID 10/22/18 04/20/19 History Bacillus coagulans [Digestive 1 tab PO DAILY 03/17/19 04/20/19 History Advantage] alprazolam 0.25 mg PO UD PRN 03/17/19 04/20/19 History calcium carbonate-vitamin D3 1 tab PO BID 03/17/19 04/20/19 History [Caltrate with Vitamin D3] cholecalciferol (vitamin D3) 1,000 unit PO DAILY 03/17/19 04/20/19 History [Vitamin D3] Patient History Medical History Acid reflux Anxiety Family history of reaction to anesthesia SISTER - N/V High cholesterol Hypertension Hypothyroid Sleep apnea CPAP Trigeminal neuralgia Urinary incontinence & FREQUENCY...HAS PROLAPSED BLADDER Surgical History History of section History of cholecystectomy History of colonoscopy History of endoscopy History of hernia surgery INCISIONAL History of surgery GAMMA KNIFE, FACE X 2 History of total right knee replacement 2011 [facility] History of umbilical hernia repair Status post cholecystectomy (Resolved) H/O: hysterectomy Family History Mother History of COPD Father History of heart attack Other History of heart disease History of high blood pressure Social History Preferred Language: [place] Communication Ability: Effective Lump Roller Required: No Beliefs That Will Affect Care: None Current Living Situation: Spouse Other Information That Helps Us Care for You: No Feels Safe at Home: Yes Smoking Status: Never smoker Do You Dip or Chew Tobacco: No Second Hand Exposure: Yes (2 sisters dx with COPD despite no hx of smoking, felt to be due to exposure) Hx Alcohol Use: No Hx Substance Use: No Review of Systems Review of Systems: Pertinent positives and negatives reviewed in HPI--all others negative Physical Exam Constitutional: WD/WN, vitals as above Eyes: normal visual francois by confrontation and + anicteric sclerae Neck: normal visual inspection and trachea midline Respiratory: normal respiratory effort, lungs clear to auscultation Cardiovascular: Rate/Rhythm: regular rate and regular rhythm Gastrointestinal (Abdomen): Inspection/Auscultation: abdomen not distended Percussion/Palpation: abdomen soft; abdomen nontender Musculoskeletal: Head/Neck/Chest: normocephalic and head atraumatic negative for edema, peripheral pulses intact Skin: no rashes, warm and dry Neurologic: awake; not confused Speech / Cognition: normal speech Psychiatric: A+Ox3, euthymic affect Results & Data Vital Signs (Past 12 Hours) Vital Signs Temp Pulse Pulse Pulse Resp BP BP 04/20/19 12:51 36.5 C 68 16 149/84 H 04/20/19 12:02 36.3 C L 74 16 146/85 H 04/20/19 11:33 65 18 136/86 04/20/19 11:05 36.3 C L 72 16 133/76 04/20/19 10:58 36.5 C 04/20/19 10:56 71 19 140/73 04/20/19 10:55 69 12 04/20/19 10:51 74 16 122/81 04/20/19 10:50 70 16 04/20/19 10:46 67 14 136/63 04/20/19 10:45 75 14 04/20/19 10:41 67 15 130/78 04/20/19 10:40 69 14 04/20/19 10:36 76 14 133/62 04/20/19 10:35 70 67 12 133/62 04/20/19 10:31 69 14 124/68 04/20/19 10:30 69 14 04/20/19 10:25 36.9 C 78 76 15 132/60 132/60 04/20/19 06:55 36.5 C 81 20 176/95 H Pulse Ox 04/20/19 12:51 99 04/20/19 12:02 98 04/20/19 11:33 98 04/20/19 11:05 98 04/20/19 10:58 100 04/20/19 10:56 98 04/20/19 10:55 97 04/20/19 10:51 99 04/20/19 10:50 100 04/20/19 10:46 100 04/20/19 10:45 98 04/20/19 10:41 100 04/20/19 10:40 100 04/20/19 10:36 96 04/20/19 10:35 98 04/20/19 10:31 100 04/20/19 10:30 100 04/20/19 10:25 100 04/20/19 06:55 98 PG Care Time/CCT Total # of Minutes Spent Total Time Spent with Patient: Total time spent is greater than 50% in coordination of care (as documented) at patient's floor/unit and/or counseling patient:
[2019-04-20] MEDS: OXYCODONE HCL IR 5 MG TAB (IMMEDIATE RELEASE) PO PRN ×2 (14:08→23:52)
[2019-04-20] MEDS: CEFAZOLIN 2000MG 2,000 MG/15 ML SYR IV SCH ×2 (18:04→23:55)
[2019-04-20] MEDS: CALCIUM 600MG + VIT D 400 IU TAB PO SCH (20:39)
[2019-04-20] MEDS: DOCUSATE SODIUM 100 MG CAP PO SCH (20:39)
[2019-04-20] MEDS: SENNA 8.6 MG TAB PO SCH (20:39)
[2019-04-20] MEDS: MONTELUKAST SODIUM 10 MG TABLET PO SCH (20:40)
[2019-04-20] MEDS: CARBAMAZEPINE 200 MG TABCR PO SCH (20:40)
[2019-04-20] MEDS: TOPIRAMATE 100 MG TAB PO SCH (20:40)
[2019-04-20] MEDS: LISINOPRIL 20 MG TAB PO SCH (20:41)
[2019-04-20] MEDS: EZETIMIBE 10 MG TABLET PO SCH (20:41)
[2019-04-21] MEDS: OXYCODONE HCL IR 5 MG TAB (IMMEDIATE RELEASE) PO PRN ×2 (05:24→23:38)
[2019-04-21] MEDS: ACETAMINOPHEN 500 MG TAB PO SCH ×3 (05:25→21:26)
[2019-04-21] MEDS: LEVOTHYROXINE SODIUM 175 MCG TABLET PO SCH (05:26)
[2019-04-21 06:36] LABS: Hematocrit (blood only) 29.2 % (37-47); Hemoglobin 9.6 g/dL (12.0-16.0); Mean Corpuscular Hgb Conc 32.9 g/dL (32-36); Mean Platelet Volume 8.7 fL (7.4-10.4); Platelet Count 230 K/uL (130-400); RDW Standard Deviation 43.7 fL (36.4-46.3); Red Blood Count 3.21 M/uL (4.2-5.4); White Blood Count 11.23 K/uL (4.8-10.8)
[2019-04-21 07:08] LABS: BUN Creatinine Ratio 23.5 (10-20); Calcium 8.6 mg/dl (8.5-10.1); Creatinine Clr Calc Pharmacy 85.3 ml/min; Est GFR (African American) 98.3; Est GFR (Non-African American) 84.9
[2019-04-21] MEDS: ONDANSETRON INJ 2 MG/ML 2 ML VIAL IV PRN ×2 (08:07→23:38)
[2019-04-21] MEDS: TOPIRAMATE 100 MG TAB PO SCH ×2 (09:03→20:18)
[2019-04-21] MEDS: CARBAMAZEPINE 200 MG TABCR PO SCH ×3 (09:03→20:17)
[2019-04-21] MEDS: PANTOprazole 40 MG TAB PO SCH (09:03)
[2019-04-21] MEDS: CALCIUM 600MG + VIT D 400 IU TAB PO SCH ×2 (09:03→20:17)
[2019-04-21] MEDS: DOCUSATE SODIUM 100 MG CAP PO SCH ×2 (09:03→20:17)
[2019-04-21] MEDS: MULTIVITAMIN TAB PO SCH (09:03)
[2019-04-21] MEDS: ENOXAPARIN INJ 40 MG/0.4 ML SYR SQ SCH (09:04)
[2019-04-21] MEDS: CHOLECALCIFEROL 1,000 UNITS TAB PO SCH (09:04)
--- NOTE | 2019-04-21 09:12 | Anesthesiology Progress Note ---
Date of Service April 21, 2019 Anesthesia Post Procedure Vital Signs Vital Signs: Temp Pulse Pulse Pulse Resp BP BP 04/21/19 07:00 36.5 C 67 16 137/79 04/21/19 03:04 36.7 C 72 16 137/73 04/20/19 23:06 36.7 C 71 16 134/77 04/20/19 19:06 36.8 C 83 17 141/82 H 04/20/19 15:26 36.5 C 76 17 141/83 H 04/20/19 14:02 74 18 142/83 H 04/20/19 12:51 36.5 C 68 16 149/84 H 04/20/19 12:02 36.3 C L 74 16 146/85 H 04/20/19 11:33 65 18 136/86 04/20/19 11:05 36.3 C L 72 16 133/76 04/20/19 10:58 36.5 C 04/20/19 10:56 71 19 140/73 04/20/19 10:55 69 12 04/20/19 10:51 74 16 122/81 04/20/19 10:50 70 16 04/20/19 10:46 67 14 136/63 04/20/19 10:45 75 14 04/20/19 10:41 67 15 130/78 04/20/19 10:40 69 14 04/20/19 10:36 76 14 133/62 04/20/19 10:35 70 67 12 133/62 04/20/19 10:31 69 14 124/68 04/20/19 10:30 69 14 04/20/19 10:25 36.9 C 78 76 15 132/60 132/60 Pulse Ox 04/21/19 07:00 95 04/21/19 03:04 94 04/20/19 23:06 97 04/20/19 19:06 97 04/20/19 15:26 98 04/20/19 14:02 100 04/20/19 12:51 99 04/20/19 12:02 98 04/20/19 11:33 98 04/20/19 11:05 98 04/20/19 10:58 100 04/20/19 10:56 98 04/20/19 10:55 97 04/20/19 10:51 99 04/20/19 10:50 100 04/20/19 10:46 100 04/20/19 10:45 98 04/20/19 10:41 100 04/20/19 10:40 100 04/20/19 10:36 96 04/20/19 10:35 98 04/20/19 10:31 100 04/20/19 10:30 100 04/20/19 10:25 100 Pain Intensity Left Knee: Pain Intensity: 6 Notes Mental Status: alert / awake / arousable Patient Amnestic to Procedure: Yes Nausea / Vomiting: improving with treatment (pt states she did not have nausea immediately after surgery; she is now having nausea; thinks it's related to pain level; ) Pain: improving with treatment Airway Patency, RR, SpO2: stable & adequate BP & HR: stable & adequate Hydration State: stable & adequate Neuraxial Anesthesia: was administered and sensory block resolved Anesthetic Complications: no major complications apparent
[2019-04-21] MEDS: HYDROmorphone INJ 0.5 MG/0.5 ML SYR IV PRN ×3 (09:30→18:47)
--- NOTE | 2019-04-21 12:20 | Orthopedic Progress Note ---
Date of Service April 21, 2019 Assessment & Plan (1) Status post left knee replacement: 69 yo female stable POD #1 s/p left TKA 1. Med management 2. DVT prophylaxis- Lovenox, SCDs 3. PT/OT 4. D/C planning- home w/ OPPT Subjective Pt resting in bed, pain controlled, denies complaints Physical Exam Physical Exam: Toes mobile, N/V/I, dressing and prevena in place Results & Data Vital Signs (Past 12 Hours) Vital Signs Temp Pulse Resp BP Pulse Ox 04/21/19 11:40 36.8 C 75 18 148/78 H 98 04/21/19 07:00 36.5 C 67 16 137/79 95 04/21/19 03:04 36.7 C 72 16 137/73 94 Laboratory Results 04/21/19 04/21/19 Range/Units 06:10 06:10 WBC 11.23 H (4.8-10.8) K/uL RBC 3.21 L (4.2-5.4) M/uL Hgb 9.6 L (12.0-16.0) g/dL Hct 29.2 L (37-47) % MCV 91.0 (80-100) fL MCH 29.9 (25-34) pg MCHC 32.9 (32-36) g/dL RDW Std Deviation 43.7 (36.4-46.3) fL RDW Coeff of Purnima 13.0 (11.5-14.5) % Plt Count 230 (130-400) K/uL MPV 8.7 (7.4-10.4) fL Sodium 136 (136-145) mmol/L Potassium 4.0 (3.5-5.1) mmol/L Chloride 105 (98-107) mmol/L Carbon Dioxide 27 (21-32) mmol/L Anion Gap 4.0 (3-11) BUN 17 (7-18) mg/dl Creatinine 0.72 (0.6-1.2) mg/dl Est Cr Clr Drug Dosing 85.3 ml/min Est GFR ( Amer) 98.3 Est GFR (Non-Af Amer) 84.9 BUN/Creatinine Ratio 23.5 H (10-20) Glucose 114 H (70-99) mg/dl Calcium 8.6 (8.5-10.1) mg/dl
[2019-04-21] MEDS ORDERED: POLYETHYLENE (MIRALAX) 17 GM PACK PO PRN (16:28)
--- NOTE | 2019-04-21 16:35 | Hospitalist Progress Note ---
Date of Service April 21, 2019 Assessment & Plan (1) Knee pain, chronic: s/p L TKA on 04/20 Pre-op Hb 12.1, POD#1 hgb down to 9.6 but hemodynamically stable -pain control remains a big issue-continues on IV dilaudid prn, APAP, oxycodone prn --with nausea and constipation also being issues fo rher--> continue docusate, senna, and add Miralax, encouraged Reglan use (2) Urinary incontinence: No current meds due to hx of ineffectiveness (3) DONNY (obstructive sleep apnea): Home CPAP, pt has with her (4) Hypothyroid: continue home levothyroxine recent TSH 2.29 in 02/2019 (5) Hyperlipidemia: continue home Zetia (6) HTN (hypertension): Controlled -continue home lisinopril (7) GERD (gastroesophageal reflux disease): continue homePPI (8) Anxiety: States she has not used xanax in years, but does keep a current rx "just in case"-not needed (9) Trigeminal neuralgia: continue home tegretol, topamax (10) DVT prophylaxis: Lovenox SQ Dispo-remain hospitalized for improved pain control Medically stable. Hospitalist Service will sign off at this point. Please feel free to reconsult if new or acute issues arise. Subjective Having some nausea and had a lot of pain in the left knee earlier today that improved with IV dilaudid nausea somewhat improved with Zofran but now returning. No BM today but passing a lot of flatus Not eating much today Review of Systems Review of Systems: All systems reviewed & are unremarkable except as noted in HPI & below (no CP, no SOB, no abd pain) Physical Exam Constitutional: WD/WN, vitals as above + morbidly obese Eyes: PERRL, conjunctivae normal, anicteric sclerae ENMT: external ear and nose normal, oropharynx normal Neck: trachea midline, no thyromegaly Respiratory: normal respiratory effort, lungs clear to auscultation Cardiovascular: RRR, no murmur, no edema Gastrointestinal (Abdomen): normal bowel sounds, soft, nontender, no hepatosplenomegaly Musculoskeletal: Extremities: + extremities abnormal to inspection (LLE in RAYMON wrap with Prevena vac in place with bloody drainage), no cyanosis and no clubbing Skin: no rashes, warm and dry Neurologic: moves all extremities and awake; no focal motor deficits Psychiatric: A+Ox3, euthymic affect Results & Data Vital Signs (Past 12 Hours) Vital Signs Temp Pulse Resp BP Pulse Ox 04/21/19 15:10 99 04/21/19 15:03 37.1 C 80 16 138/77 96 04/21/19 11:40 36.8 C 75 18 148/78 H 98 04/21/19 07:00 36.5 C 67 16 137/79 95 Laboratory Results 04/21/19 04/21/19 Range/Units 06:10 06:10 WBC 11.23 H (4.8-10.8) K/uL RBC 3.21 L (4.2-5.4) M/uL Hgb 9.6 L (12.0-16.0) g/dL Hct 29.2 L (37-47) % MCV 91.0 (80-100) fL MCH 29.9 (25-34) pg MCHC 32.9 (32-36) g/dL RDW Std Deviation 43.7 (36.4-46.3) fL RDW Coeff of Purnima 13.0 (11.5-14.5) % Plt Count 230 (130-400) K/uL MPV 8.7 (7.4-10.4) fL Sodium 136 (136-145) mmol/L Potassium 4.0 (3.5-5.1) mmol/L Chloride 105 (98-107) mmol/L Carbon Dioxide 27 (21-32) mmol/L Anion Gap 4.0 (3-11) BUN 17 (7-18) mg/dl Creatinine 0.72 (0.6-1.2) mg/dl Est Cr Clr Drug Dosing 85.3 ml/min Est GFR ( Amer) 98.3 Est GFR (Non-Af Amer) 84.9 BUN/Creatinine Ratio 23.5 H (10-20) Glucose 114 H (70-99) mg/dl Calcium 8.6 (8.5-10.1) mg/dl PG Care Time/CCT Total # of Minutes Spent Total Time Spent with Patient: Total time spent is greater than 50% in coordination of care (as documented) at patient's floor/unit and/or counseling patient:
[2019-04-21] MEDS: SENNA 8.6 MG TAB PO SCH (20:17)
[2019-04-21] MEDS: MONTELUKAST SODIUM 10 MG TABLET PO SCH (20:17)
[2019-04-21] MEDS: LISINOPRIL 20 MG TAB PO SCH (20:18)
[2019-04-21] MEDS: EZETIMIBE 10 MG TABLET PO SCH (20:18)
[2019-04-22] MEDS: ACETAMINOPHEN 500 MG TAB PO SCH (05:32)
[2019-04-22] MEDS: LEVOTHYROXINE SODIUM 175 MCG TABLET PO SCH (05:33)
[2019-04-22 06:49] LABS: Hematocrit (blood only) 27.9 % (37-47); Hemoglobin 9.1 g/dL (12.0-16.0); Mean Corpuscular Hgb Conc 32.6 g/dL (32-36); Mean Corpuscular Volume 91.2 fL (80-100); Mean Platelet Volume 8.7 fL (7.4-10.4); Platelet Count 244 K/uL (130-400); RDW Coefficient of Variation 13.2 % (11.5-14.5); RDW Standard Deviation 44.5 fL (36.4-46.3); Red Blood Count 3.06 M/uL (4.2-5.4); White Blood Count 8.68 K/uL (4.8-10.8)
[2019-04-22 07:14] LABS: BUN Creatinine Ratio 21.6 (10-20); Est GFR (African American) 102.2; Est GFR (Non-African American) 88.2; Potassium 3.7 mmol/L (3.5-5.1)
--- NOTE | 2019-04-22 07:24 | Orthopedic Progress Note ---
Date of Service April 22, 2019 Assessment & Plan (1) Status post left knee replacement: 69 yo female stable POD #2 s/p left TKA 1. Med management 2. DVT prophylaxis- Lovenox, SCDs 3. PT/OT 4. D/C planning- home w/ HH today. Subjective Pt resting in bed, pain controlled, POD #2. States having some nausea, states last time she was in hospital same thing happened. Denies SOB, CP, N/V. Results & Data Vital Signs (Past 12 Hours) Vital Signs Temp Pulse Resp BP BP Pulse Ox 04/21/19 22:56 37.1 C 82 16 139/79 154/81 H 96
[2019-04-22] MEDS: OXYCODONE HCL IR 5 MG TAB (IMMEDIATE RELEASE) PO PRN ×2 (07:36→12:27)
[2019-04-22] MEDS: DOCUSATE SODIUM 100 MG CAP PO SCH (08:30)
[2019-04-22] MEDS: CARBAMAZEPINE 200 MG TABCR PO SCH (08:30)
[2019-04-22] MEDS: TOPIRAMATE 100 MG TAB PO SCH (08:30)
[2019-04-22] MEDS: CALCIUM 600MG + VIT D 400 IU TAB PO SCH (08:31)
[2019-04-22] MEDS: MULTIVITAMIN TAB PO SCH (08:31)
[2019-04-22] MEDS: PANTOprazole 40 MG TAB PO SCH (08:31)
[2019-04-22] MEDS: CHOLECALCIFEROL 1,000 UNITS TAB PO SCH (08:31)
[2019-04-22] MEDS: ENOXAPARIN INJ 40 MG/0.4 ML SYR SQ SCH (08:31)
[2019-04-22] MEDS: ONDANSETRON INJ 2 MG/ML 2 ML VIAL IV PRN (12:36)
--- NOTE | 2019-05-06 01:12 | Discharge Summary ---
HISTORY OF PRESENT ILLNESS: This is a 69-year-old female patient of Dr. Puckett'amanda complaining of chronic left knee pain and instability, longstanding, now progressively getting worse. The patient failed conservative treatment and elected to proceed with a left total knee arthroplasty. PAST MEDICAL HISTORY: Hypertension, hypercholesterolemia, palpatations secondary to anxiety, sleep apnea with the use of CPAP, hypothyroidism, spine problems, osteoarthritis, sciatica, acid reflux, and obesity. POSTOPERATIVE COURSE: The patient underwent a left total knee arthroplasty on 04/20/2019. She was followed closely with medical consultation, DVT prophylaxis in the form of Lovenox, physical therapy, and pain control. The patient did well postoperatively and was discharged home on postoperative day #2. PHYSICAL EXAMINATION ON DISCHARGE: Dressings are clean, dry, and intact. There was no redness or drainage. She had no calf tenderness. Negative Homans sign. Toes and ankle were mobile. Neurologically and neurovascularly she was intact in her left lower extremity. DIAGNOSIS: Status post left total knee arthroplasty, hypertension, hypercholesterolemia, palpations secondary to anxiety, sleep apnea with the use of CPAP, hypothyroidism, spine problems, osteoarthritis, sciatica, acid reflux, and obesity. PLAN: The patient was discharged home with home health services. She will continue with preadmission medications with the addition of Lovenox and pain medications. She will follow up as scheduled as an outpatient. BRAYDON
== END 2019-04-22 14:10 | disposition home or self-care (01) | DRG 470 ==
LOC: ASU 06:22 → 3E 10:30

== ENCOUNTER 2021-05-21 21:19 | Observation (INO) ==
[2021-05-21] MEDS ORDERED: MECLIZINE HCL 25 MG TAB PO STA ×2 (23:16→23:18)
[2021-05-21] MEDS ORDERED: SODIUM CHLORIDE 0.9% 1000ML 1,000 ML IV ONE (23:18)
--- NOTE | 2021-05-22 00:01 | Emergency Department Note ---
Impression & Plan Dizzy, Ambulatory dysfunction ED Provider Note NAME: LAURIE SCHMITZ AGE: 71 SEX: F : 1950 ARRIVES VIA: Walk-In INFORMANT: Patient ED PROVIDER(S): Erwin Auguste DO CHIEF COMPLAINT: Dizzy HPI: Patient is a 69-year-old female who presents ER for dizziness/lig htheadedness. Symptoms started over 24 hours ago. She notes that it is constant. There is no exacerbating or remitting factors. She does not feel as though anything is moving. She has trouble walking and has to hold onto things to ambulate and not fall. She feels lightheaded and slightly off balance. She denies any focal weakness of her arms or legs. No chest pain, shortness of breath, nausea, vomiting, or diarrhea. She does admit to some twitching in the upper extremities which is normal for her although may be slightly worse. No headache or neck pain. No other exacerbating or remitting factors. She does follow with not many neurology already. ROS: See above HPI for pertinent positives & negatives. A total of 10 systems reviewed and were otherwise negative. PAST MEDICAL HISTORY:See Below PAST SURGICAL HISTORY:See Below FAMILY HISTORY:See Below SOCIAL HISTORY:See Below HOME MEDICATIONS:See Below ALLERGIES:See Below VITALS:See Below PHYSICAL EXAMINATION: GENERAL: Sitting up in bed, alert, well appearing, well nourished, no distress, non-toxic EYE EXAM: normal conjunctiva. PERRL and EOM's intact. OROPHARYNX: no exudate, no erythema, lips, buccal mucosa, and tongue normal and mucous membranes are moist NECK: supple, no nuchal rigidity, no adenopathy, non-tender LUNGS: Clear to auscultation. Normal chest wall mechanics HEART: no murmurs, S1 normal and S2 normal ABDOMEN: abdomen soft, non-tender, normo-active bowel sounds, no masses, no rebound or guarding. UPPER EXTREMITIES: upper extremities are grossly normal. LOWER EXTREMITIES: No pitting edema. NEURO EXAM: Normal sensorium, cranial nerves II-XII intact, normal speech, no weakness of arms, no weakness of legs. No drift. Finger to nose intact. Gross sensation intact. Ambulates without difficulty. MEDICAL DECISION MAKING: Patient is a 71-year-old female who presents the ER for dizziness. She is having trouble ambulating. IV was established blood work was obtained. Sympto ms have been present for the past 24 hours. No exacerbating or remitting factors. Labs show no significant leukocytosis or anemia. BMP and lipase was unremarkable. Troponin was negative. UA was clean. CT as well as CT angio of the head and neck was negative. EKG was nondiagnostic. Patient was was given fluids and Antivert. Symptoms are still present and she cannot walk without support. Discussed with the hospitalist for further evaluation. Triage Nursing notes reviewed. Limited review of prior medical records performed Vital Signs: reviewed and remarkable for no significant abnormalities Differential diagnosis: Differential diagnosis includes etiologies such as benign positional vertigo, dehydration, hypovolemia, anemia, tumor, infection, hypoglycemia, electrolyte abnormalities, cardiac sources, intracerebral event, toxicologic, neurological, as well as others were entertained. ER treatment provided: See below Diagnostics interpreted by me: ECG: Sinus rhythm rate of 72 Normal axis No PVCs QTC 433 Cardiac Monitoring: An order was placed for continuous cardiac monitoring. The monitor shows a rate of 62 with sinus rhythm. Laboratory studies: As stated above and show below. Imaging studies: CT head as well as CT angio of the head and neck were negative per stat read Consultation(s): Discussed with Ace Palma for further evaluation Procedures: none Critical Care: None Past Med/Surg History Medical History (Updated 05/22/21 @ 02:19 by Erwin Auguste DO) Acid reflux Anxiety Anxiety Anxiety disorder Chronic gastroesophageal reflux disease Diverticulitis Family history of reaction to anesthesia SISTER - N/V GERD (gastroesophageal reflux disease) High cholesterol HTN (hypertension) Hyperlipidemia Hypertension Hypertension, benign Hypothyroid Hypothyroid DONNY (obstructive sleep apnea) Osteoporosis Sleep apnea CPAP Trigeminal neuralgia Trigeminal neuralgia Urinary incontinence & FREQUENCY...HAS PROLAPSED BLADDER Urinary incontinence Surgical History H/O: hysterectomy History of section History of cholecystectomy History of colonoscopy History of endoscopy History of hernia surgery INCISIONAL History of surgery GAMMA KNIFE, FACE X 2 History of total right knee replacement 2011 [facility] History of umbilical hernia repair Status post cholecystectomy Status post left knee replacement Family History Mother History of COPD Emphysema lung Father History of heart attack Sister COPD (chronic obstructive pulmonary disease) Other History of heart disease History of high blood pressure Social History Smoking Status: Never smoker Second Hand Exposure: No (2 sisters dx with COPD despite no hx of smoking, felt to be due to exposure); Hx Alcohol Use: No Hx Substance Use: No Preferred Language: Pakistani Communication Ability: Effective Hearing Ability: Normal Concierge Required: No Beliefs That Will Affect Care: None marital status: Current Living Situation: Family Current Living Situation Comment: spouse and adult daughter current occupational status: retired How many Children do You have: 3 Feels Safe at Home: Yes Childhood Exposure to Second-Hand Smoke: Yes Seatbelt Use: always Sunscreen Use: Yes Assistive Devices: Walker Allergies Allergies Allergy/AdvReac Type Severity Reaction Status Date / Time nitrous oxide Allergy Severe laughing Verified 05/22/21 01:35 gas = couldn't breath NSAIDS (Non-Steroidal Allergy Severe RAPID HR, Verified 05/22/21 01:35 Anti-Inflamma RESP DISTRESS etodolac Allergy Unknown RAPID Verified 05/22/21 01:35 HEARTBEAT, RESPIRATORY DISTRESS naproxen Allergy Unknown RAPID Verified 05/22/21 01:35 HEART BEATS, RESPIRATORY DISTRESS ibandronate sodium AdvReac Severe SEVERE Verified 05/22/21 01:35 MUSCLE AND BONE PAIN Ditropan Allergy Unknown Unknown Uncoded 05/22/21 01:35 hydroCHLOROthiazide TABS Allergy Unknown Unknown Uncoded 05/22/21 01:35 Lodine TABS Allergy Unknown Unknown Uncoded 05/22/21 01:35 Septra TABS Allergy Unknown Unknown Uncoded 05/22/21 01:35 Unknown pain med form 2019 AdvReac Mild hard time Uncoded 05/22/21 01:39 breathing Home Meds Home Medications Medication Instructions Recorded Confirmed montelukast 10 mg tablet 10 mg PO QPM 10/22/18 05/22/21 (Singulair) calcium carbonate-vitamin D3 600 1 tab PO BID 03/17/19 05/22/21 mg (1,500 mg)-800 unit tablet (Caltrate with Vitamin D3) aspirin 81 mg tablet,delayed 81 mg PO QPM #30 tab 08/05/19 05/22/21 release baclofen 10 mg tablet 10 mg PO BID tab 04/21/21 05/22/21 acetaminophen 500 mg tablet 1,000 mg PO Q6H PRN 05/22/21 05/22/21 (Tylenol Extra Strength) cholecalciferol (vitamin D3) 25 25 mcg PO BID 05/22/21 05/22/21 mcg (1,000 unit) tablet (Vitamin D3) ezetimibe 10 mg tablet 10 mg PO HS 05/22/21 05/22/21 Previous Rx's Medication Instructions Recorded Full Face mask, replacement #1 ea 04/19/20 cushion, disposable and nondisposable filters, tubing, headgear, and water ch carbamazepine 400 mg 400 mg PO TID 90 Days #270 tab 02/13/21 tablet,extended release,12 hr topiramate 200 mg tablet (Topamax) 200 mg PO BID 90 Days #180 tab 02/17/21 lisinopril 40 mg tablet 40 mg PO QPM #90 tab 03/01/21 levothyroxine 175 mcg tablet 175 mcg PO QAM #90 tab 03/06/21 omeprazole 40 mg capsule,delayed 40 mg PO DAILY #30 cap 05/16/21 release Results & Data (ED) Vital Signs Vital Signs - 24 hr 05/21/21 21:55 05/22/21 00:00 05/22/21 00:12 Temperature 36.3 C L Temperature Source Temporal Artery Scan Pulse Rate 76 68 71 Pulse Rate from SpO2 Sensor Pulse Rhythm Regular Respiratory Rate 18 16 18 Respiratory Effort / Characteristics Non-Labored Respiratory Depth Normal Respiratory Pattern Regular Blood Pressure 185/89 H 161/82 H Blood Pressure Mean 121 108 Pulse Oximetry 98 98 Oxygen Delivery Method Room Air Room Air Sepsis Recent Fever Within 48 Hours No Sepsis New/Unexplained Change in Mental Status No Sepsis Action Taken by Nursing No Action Required 05/22/21 01:01 Temperature Temperature Source Pulse Rate 69 Pulse Rate from SpO2 Sensor 68 Pulse Rhythm Respiratory Rate 13 Respiratory Effort / Characteristics Respiratory Depth Respiratory Pattern Blood Pressure 146/76 H Blood Pressure Mean 99 Pulse Oximetry 99 Oxygen Delivery Method Sepsis Recent Fever Within 48 Hours Sepsis New/Unexplained Change in Mental Status Sepsis Action Taken by Nursing Laboratory Data Result diagrams: 05/21/21 23:48 05/21/21 23:48 Lab Results 05/21/21 05/21/21 05/21/21 Range/Units 23:48 23:48 23:48 WBC 8.78 (4.8-10.8) K/uL RBC 4.34 (4.2-5.4) M/uL Hgb 12.6 (12.0-16.0) g/dL POC Hgb (12.0-16.0) g/dl Hct 39.0 (37-47) % POC Hct (37-47) % MCV 89.9 (80-100) fL MCH 29.0 (25-34) pg MCHC 32.3 (32-36) g/dL RDW Std Deviation 43.7 (36.4-46.3) fL RDW Coeff of [place] 13.2 (11.5-14.5) % Plt Count 275 (130-400) K/uL MPV 8.9 (7.4-10.4) fL Immature Gran % (Auto) 0.3 % Neut % (Auto) 67.4 % Lymph % (Auto) 21.0 % [place] % (Auto) 8.9 % Eos % (Auto) 2.2 % Baso % (Auto) 0.2 % Neut # (Auto) 5.92 (1.4-6.5) K/uL Lymph # (Auto) 1.84 (1.2-3.4) K/uL [place] # (Auto) 0.78 H (0.11-0.59) K/uL Eos # (Auto) 0.19 (0-0.5) K/uL Baso # (Auto) 0.02 (0-0.2) K/uL Immature Gran # (Auto) 0.03 H (0.00-0.02) K/uL APTT 28.5 (21.0-31.0) Seconds PTT Ratio 1.1 POC Sodium (135-144) mmol/L Sodium 137 (136-145) mmol/L POC Potassium (3.3-5.0) mmol/L Potassium 3.9 (3.5-5.1) mmol/L POC Chloride (101-112) mmol/L Chloride 104 (98-107) mmol/L Carbon Dioxide 27 (21-32) mmol/L POC Total CO2 (24-31) mmol/L Anion Gap 6.0 (3-11) POC Anion Gap (16-25) mmol/L POC BUN (7-18) mg/dl BUN 19 H (7-18) mg/dl Creatinine 0.74 (0.6-1.2) mg/dl POC Creatinine (0.6-1.3) mg/dl Est Cr Clr Drug Dosing Not Reportable Est GFR ( Amer) 93.8 ml/min Est GFR (Non-Af Amer) 80.9 ml/min BUN/Creatinine Ratio 25.9 H (10-20) Glucose 94 (70-99) mg/dl POC Glucose (other) (70-99) mg/dl Calcium 8.4 L (8.5-10.1) mg/dl POC Ioniz Calcium [place] (1.12-1.32) mmol/l Total Bilirubin 0.2 (0.2-1) mg/dl AST 11 L (15-37) U/L ALT 19 (12-78) U/L Alkaline Phosphatase 114 (45-117) U/L Troponin I < 0.015 (0-0.045) ng/ml Total Protein 6.9 (6.4-8.2) gm/dl Albumin 3.3 L (3.4-5.0) gm/dl Globulin 3.6 (2.5-4.0) gm/dl Albumin/Globulin Ratio 0.9 (0.9-2) Lipase 127 (73-393) U/L Urine Color Urine Appearance (Clear) Urine pH (4.5-7.5) Ur Specific [place] (1.000-1.030) Urine Protein (Negative) Urine Glucose (UA) (Negative) Urine Ketones (Negative) Urine Blood (Negative) Urine Nitrite (Negative) Urine Bilirubin (Negative) Urine Urobilinogen (Negative) Ur Leukocyte Esterase (Negative) 05/22/21 05/22/21 Range/Units 00:00 00:04 WBC (4.8-10.8) K/uL RBC (4.2-5.4) M/uL Hgb (12.0-16.0) g/dL POC Hgb 13.3 (12.0-16.0) g/dl Hct (37-47) % POC Hct 39 (37-47) % MCV (80-100) fL MCH (25-34) pg MCHC (32-36) g/dL RDW Std Deviation (36.4-46.3) fL RDW Coeff of [place] (11.5-14.5) % Plt Count (130-400) K/uL MPV (7.4-10.4) fL Immature Gran % (Auto) % Neut % (Auto) % Lymph % (Auto) % [place] % (Auto) % Eos % (Auto) % Baso % (Auto) % Neut # (Auto) (1.4-6.5) K/uL Lymph # (Auto) (1.2-3.4) K/uL [place] # (Auto) (0.11-0.59) K/uL Eos # (Auto) (0-0.5) K/uL Baso # (Auto) (0-0.2) K/uL Immature Gran # (Auto) (0.00-0.02) K/uL APTT (21.0-31.0) Seconds PTT Ratio POC Sodium 138 (135-144) mmol/L Sodium (136-145) mmol/L POC Potassium 4.0 (3.3-5.0) mmol/L Potassium (3.5-5.1) mmol/L POC Chloride 100 L (101-112) mmol/L Chloride (98-107) mmol/L Carbon Dioxide (21-32) mmol/L POC Total CO2 24 (24-31) mmol/L Anion Gap (3-11) POC Anion Gap 20.0 (16-25) mmol/L POC BUN 18 (7-18) mg/dl BUN (7-18) mg/dl Creatinine (0.6-1.2) mg/dl POC Creatinine 0.8 (0.6-1.3) mg/dl Est Cr Clr Drug Dosing Est GFR ( Amer) ml/min Est GFR (Non-Af Amer) ml/min BUN/Creatinine Ratio (10-20) Glucose (70-99) mg/dl POC Glucose (other) 98 (70-99) mg/dl Calcium (8.5-10.1) mg/dl POC Ioniz Calcium [place] 1.18 (1.12-1.32) mmol/l Total Bilirubin (0.2-1) mg/dl AST (15-37) U/L ALT (12-78) U/L Alkaline Phosphatase (45-117) U/L Troponin I (0-0.045) ng/ml Total Protein (6.4-8.2) gm/dl Albumin (3.4-5.0) gm/dl Globulin (2.5-4.0) gm/dl Albumin/Globulin Ratio (0.9-2) Lipase (73-393) U/L Urine Color Yellow Urine Appearance Clear (Clear) Urine pH 6.0 (4.5-7.5) Ur Specific [place] 1.017 (1.000-1.030) Urine Protein Negative (Negative) Urine Glucose (UA) Negative (Negative) Urine Ketones Negative (Negative) Urine Blood Negative (Negative) Urine Nitrite Negative (Negative) Urine Bilirubin Negative (Negative) Urine Urobilinogen Negative (Negative) Ur Leukocyte Esterase Negative (Negative) Administered Medications Discontinued Medications Sodium Chloride (Nss 1000ml) 1,000 mls @ 999 mls/hr IV .[id number] ONE Stop: 05/22/21 00:18 Last Infusion: 05/22/21 01:28 Dose: 0 mls/hr Documented by: [id number] Admin: 05/22/21 00:13 Dose: 999 mls/hr Documented by: [id number] Ioversol (Optiray 320 125ml) 125 ml IV ONCE ONE Stop: 05/22/21 00:50 Last Admin: 05/22/21 00:49 Dose: 118 ml Documented by: [id number] Meclizine HCl (Meclizine Hcl 25 Mg Tab) 25 mg PO NOW STA Stop: 05/21/21 23:17 Last Admin: 05/22/21 00:11 Dose: 25 mg Documented by: [id number] Meclizine HCl (Meclizine Hcl 25 Mg Tab) 25 mg PO NOW STA Stop: 05/21/21 23:19 Last Admin: 05/22/21 00:13 Dose: Not Given Documented by: [id number] Discharge Plan Visit Data Chief Complaint: Dizziness Stated Complaint: VERY DIZZY ED Provider: Erwin Auguste Discharge Problem: Dizzy, Ambulatory dysfunction Forms Stand Alone Forms: My [facility] Prescriptions Prescriptions: No Action (DME) Full Face mask, replacement cushion, disposable and nondisposable filters, tubing, headgear, and water ch Qty: 1 RF: 0 topiramate [Topamax] 200 mg tablet 200 mg PO BID 90 Days Qty: 180 RF: 1 levothyroxine 175 mcg tablet 175 mcg PO QAM Qty: 90 RF: 0 omeprazole 40 mg capsule,delayed release(DR/EC) 40 mg PO DAILY Qty: 30 RF: 5 aspirin 81 mg tablet,delayed release (DR/EC) 81 mg PO QPM Qty: 30 RF: 0 carbamazepine 400 mg tablet extended release 12 hr 400 mg PO TID 90 Days Qty: 270 RF: 1 lisinopril 40 mg tablet 40 mg PO QPM Qty: 90 RF: 3 baclofen 10 mg tablet 10 mg PO BID RF: 0 calcium carbonate-vitamin D3 [Caltrate with Vitamin D3] 600 mg(1,500mg) -800 unit Tablet 1 tab PO BID RF: 0 montelukast [Singulair] 10 mg Tablet 10 mg PO QPM RF: 0 cholecalciferol (vitamin D3) [Vitamin D3] 25 mcg (1,000 unit) Tablet 25 mcg PO BID RF: 0 acetaminophen [Tylenol Extra Strength] 500 mg Tablet 1,000 mg PO Q6H PRN (Reason: Pain) RF: 0 ezetimibe 10 mg tablet 10 mg PO HS RF: 0 Referrals Referrals: Cesar Crenshaw MD [Primary Care Provider] -
[2021-05-22 00:05] LABS: Basophils # (auto) 0.02 K/uL (0-0.2); Basophils % (auto) 0.2 %; Eosinophils # (auto) 0.19 K/uL (0-0.5); Eosinophils % (auto) 2.2 %; Hemoglobin 12.6 g/dL (12.0-16.0); Immature Granulocytes # (auto) 0.03 K/uL (0.00-0.02); Immature Granulocytes % (auto) 0.3 %; Lymphocytes # (auto) 1.84 K/uL (1.2-3.4); Mean Corpuscular Hgb Conc 32.3 g/dL (32-36); Mean Corpuscular Volume 89.9 fL (80-100); Mean Platelet Volume 8.9 fL (7.4-10.4); Monocytes # (auto) 0.78 K/uL (0.11-0.59); Monocytes % (auto) 8.9 %; Neutrophils # (auto) 5.92 K/uL (1.4-6.5); Neutrophils % (auto) 67.4 %; Platelet Count 275 K/uL (130-400); RDW Coefficient of Variation 13.2 % (11.5-14.5); RDW Standard Deviation 43.7 fL (36.4-46.3); Red Blood Count 4.34 M/uL (4.2-5.4); White Blood Count 8.78 K/uL (4.8-10.8)
[2021-05-22 00:15] LABS: Partial Thromboplastin Ratio 1.1; Partial Thromboplastin Time 28.5 Seconds (21.0-31.0)
[2021-05-22 00:16] LABS: iSTAT Creatinine 0.8 mg/dl (0.6-1.3); iSTAT Hemoglobin 13.3 g/dl (12.0-16.0); iSTAT Ionized Calcium 1.18 mmol/l (1.12-1.32)
[2021-05-22 00:27] LABS: Alanine Aminotransferase 19 U/L (12-78); Albumin Level 3.3 gm/dl (3.4-5.0); Aspartate Aminotransferase 11 U/L (15-37); BUN Creatinine Ratio 25.9 (10-20); Blood Urea Nitrogen 19 mg/dl (7-18); Calcium 8.4 mg/dl (8.5-10.1); Carbon Dioxide 27 mmol/L (21-32); Chloride 104 mmol/L (98-107); Est GFR (African American) 93.8 ml/min; Est GFR (Non-African American) 80.9 ml/min; Glucose 94 mg/dl (70-99); Lipase 127 U/L (73-393); Potassium 3.9 mmol/L (3.5-5.1); Sodium 137 mmol/L (136-145)
[2021-05-22 00:32] LABS: Albumin Globulin Ratio 0.9 (0.9-2); Alkaline Phosphatase 114 U/L (45-117); Bilirubin,Total 0.2 mg/dl (0.2-1); Globulin 3.6 gm/dl (2.5-4.0); Total Protein 6.9 gm/dl (6.4-8.2); Troponin I < 0.015 ng/ml (0-0.045)
[2021-05-22 00:49] LABS: Appearance Urine Clear (Clear); Bilirubin Urine Negative (Negative); Blood Urine Negative (Negative); Color Urine Yellow; Glucose Urine UA Negative (Negative); Ketones Urine Negative (Negative); Leukocyte Esterase Urine Negative (Negative); Nitrite Urine Negative (Negative); Protein Urine Negative (Negative); Specific Gravity Urine 1.017 (1.000-1.030); Urobilinogen Urine Negative (Negative)
[2021-05-22] MEDS ORDERED: OPTIRAY 320 125ml IV ONE (00:49)
--- NOTE | 2021-05-22 03:19 | History & Physical Report ---
Date of Service May 22, 2021 Assessment & Plan (1) Vertigo: Plan: Anita Box is a 71-year-old female with past medical history significant for trigeminal neuralgia, hypothyroidism, hyperlipidemia, hypertension, GERD, and anxiety; who presented for approximately 36 hours of persistent vertiginous symptoms. Vertigo: -Likely multifactorial in the setting of potential dehydration and polypharmacy -CT head and CTA head/neck demonstrating no acute intracranial process or significant stenosis/occlusion/aneurysm of cervical or intracranial vasculature -Received 1 L bolus in ED with slight improvement in overall symptoms -Continue rehydration with NS@80/hr -PT/OT evaluation given concerns for instability with gait Trigeminal neuralgia: -Continuation of Tegretol 400 mg 3 times daily -Discussed concerns with family and patient about extended release dose potenti ation of some of her symptoms given 12 hours release timeframe and potential stacking of doses -Neurology had previously attempted to wean off of baclofen given oversedation concerns on medication but patient did not tolerate gabapentin -Hold baclofen at this time -Patient would likely benefit from pill packs going forward as "mental fog" may lead to unintentional polypharmacy Hypertension: -Continue home lisinopril GERD: -Continue PPI with utilization of hospital formulary Hypothyroidism: -Continue home Synthroid regimen Diet: Regular CODE STATUS: Full code DVT prophylaxis: Deferred at this time (2) Trigeminal neuralgia: (3) Anxiety: (4) Hypertension, benign: (5) Chronic gastroesophageal reflux disease: (6) Hypothyroid: (7) Polypharmacy: History of Present Illness Chief Complaint: Vertigo Primary Care Provider: Cesar Crenshaw MD Anita Box is a 71-year-old female with past medical history significant for trigeminal neuralgia, hypothyroidism, hyperlipidemia, hypertension, GERD, and anxiety; who presented for approximately 36 hours of persistent vertiginous symptoms. Symptoms started Saturday afternoon, initially patient thought nothing of it and thought that she was just having more of a sinus congestion. Tried to take oral decongestant medication as at times in the past this has resolved these types of episodes before. However continued did not have improvement in her symptoms. Ultimately went to bed Saturday night feeling increasingly unsteady on her feet, and requiring assistance from her in order to do so. Woke up Saturday morning with the symptoms continuing even at rest, and worsened by all physical activity. Noticed when she was trying to stay since seated and read the newspaper she would feel her arms and hands "jerk" at the same time. Had no bowel or bladder incontinence at this time. Continues to feel unsteady on her feet at this time, but okay while seated. She prepares her own medications in pillboxes, weekly, and tracks how many pills during each 1 by counting both a.m. and p.m. doses knows that there are supposed to be 5 pills in the morning pack and 9 pills in the p.m. pack. has noted that since starting on some of her medications for trigeminal neuralgia she has been needing a prolonged "mental fog" and had difficulty with word finding frequently. Has noted that this "mental fog" has been present for many months however fear about potential trigeminal pain as this can be debilitating. additionally notes that at times over the last several months she has reached the point where she is falling asleep in the car, and he has grown concerned at the potential for her to fall asleep behind the wheel. They have taken steps to try to avoid these scenarios from being allowed; however, he still has these concerns at this time given the persistence of this. Previously had tried with neurology to come off the baclofen with transition to gabapentin however this failed given symptoms and leg swelling on gabapentin. Allergies Allergy/AdvReac Type Severity Reaction Status Date / Time nitrous oxide Allergy Severe laughing Verified 05/22/21 01:35 gas = couldn't breath NSAIDS (Non-Steroidal Allergy Severe RAPID HR, Verified 05/22/21 01:35 Anti-Inflamma RESP DISTRESS etodolac Allergy Unknown RAPID Verified 05/22/21 01:35 HEARTBEAT, RESPIRATORY DISTRESS naproxen Allergy Unknown RAPID Verified 05/22/21 01:35 HEART BEATS, RESPIRATORY DISTRESS ibandronate sodium AdvReac Severe SEVERE Verified 05/22/21 01:35 MUSCLE AND BONE PAIN Ditropan Allergy Unknown Unknown Uncoded 05/22/21 01:35 hydroCHLOROthiazide TABS Allergy Unknown Unknown Uncoded 05/22/21 01:35 Lodine TABS Allergy Unknown Unknown Uncoded 05/22/21 01:35 Septra TABS Allergy Unknown Unknown Uncoded 05/22/21 01:35 Unknown pain med form 2019 AdvReac Mild hard time Uncoded 05/22/21 01:39 breathing Home Medications Medication Instructions Recorded Confirmed Type montelukast 10 mg tablet 10 mg PO QPM 10/22/18 05/22/21 History (Singulair) calcium carbonate-vitamin D3 600 1 tab PO BID 03/17/19 05/22/21 History mg (1,500 mg)-800 unit tablet (Caltrate with Vitamin D3) aspirin 81 mg tablet,delayed 81 mg PO QPM #30 tab 08/05/19 05/22/21 History release Full Face mask, replacement #1 ea 04/19/20 04/21/21 Rx cushion, disposable and nondisposable filters, tubing, headgear, and water ch carbamazepine 400 mg 400 mg PO TID 90 Days #270 tab 02/13/21 05/22/21 Rx tablet,extended release,12 hr topiramate 200 mg tablet (Topamax) 200 mg PO BID 90 Days #180 tab 02/17/21 05/22/21 Rx lisinopril 40 mg tablet 40 mg PO QPM #90 tab 03/01/21 05/22/21 Rx levothyroxine 175 mcg tablet 175 mcg PO QAM #90 tab 03/06/21 05/22/21 Rx omeprazole 40 mg capsule,delayed 40 mg PO DAILY #30 cap 05/16/21 05/22/21 Rx release acetaminophen 500 mg tablet 1,000 mg PO Q6H PRN 05/22/21 05/22/21 History (Tylenol Extra Strength) cholecalciferol (vitamin D3) 25 25 mcg PO BID 05/22/21 05/22/21 History mcg (1,000 unit) tablet (Vitamin D3) ezetimibe 10 mg tablet 10 mg PO HS 05/22/21 05/22/21 History Past Med/Surg History Medical History (Updated 05/23/21 @ 00:08 by Ivelisse Hobbs) Acid reflux Anxiety Anxiety Anxiety disorder Chronic gastroesophageal reflux disease Diverticulitis Family history of reaction to anesthesia SISTER - N/V GERD (gastroesophageal reflux disease) High cholesterol HTN (hypertension) Hyperlipidemia Hypertension Hypertension, benign Hypothyroid Hypothyroid DONNY (obstructive sleep apnea) Osteoporosis Sleep apnea CPAP Trigeminal neuralgia Trigeminal neuralgia Urinary incontinence & FREQUENCY...HAS PROLAPSED BLADDER Urinary incontinence Wheezing on expiration Surgical History H/O: hysterectomy History of section History of cholecystectomy History of colonoscopy History of endoscopy History of hernia surgery INCISIONAL History of surgery GAMMA KNIFE, FACE X 2 History of total right knee replacement 2012 [facility] History of umbilical hernia repair Status post cholecystectomy Status post left knee replacement Family History Mother History of COPD Emphysema lung Father History of heart attack Sister COPD (chronic obstructive pulmonary disease) Other History of heart disease History of high blood pressure Social History Smoking Status: Never smoker Second Hand Exposure: No (2 sisters dx with COPD despite no hx of smoking, felt to be due to exposure); Hx Alcohol Use: No Hx Substance Use: No Preferred Language: Lao Communication Ability: Effective Hearing Ability: Normal Carton Repairer Required: No Beliefs That Will Affect Care: None marital status: Current Living Situation: Spouse Current Living Situation Comment: spouse and adult daughter current occupational status: retired How many Children do You have: 3 Feels Safe at Home: Yes Childhood Exposure to Second-Hand Smoke: Yes Seatbelt Use: always Sunscreen Use: Yes Assistive Devices: Glasses Review of Systems Review of Systems: All systems reviewed & are unremarkable except as noted in HPI & below Results & Data Results & Data ([facility]) Vital Signs (Past 12 Hours) Vital Signs Temp Pulse Resp BP Pulse Ox 05/22/21 02:00 65 18 165/80 H 05/22/21 01:01 69 13 146/76 H 99 05/22/21 00:12 71 18 98 05/22/21 00:00 68 16 161/82 H 05/21/21 21:55 36.3 C L 76 18 185/89 H 98 Laboratory Results 05/22/21 05/22/21 05/22/21 Range/Units 02:25 02:25 00:04 WBC (4.8-10.8) K/uL RBC (4.2-5.4) M/uL Hgb (12.0-16.0) g/dL POC Hgb 13.3 (12.0-16.0) g/dl Hct (37-47) % POC Hct 39 (37-47) % MCV (80-100) fL MCH (25-34) pg MCHC (32-36) g/dL RDW Std Deviation (36.4-46.3) fL RDW Coeff of Purnima (11.5-14.5) % Plt Count (130-400) K/uL MPV (7.4-10.4) fL Immature Gran % (Auto) % Neut % (Auto) % Lymph % (Auto) % Kerr % (Auto) % Eos % (Auto) % Baso % (Auto) % Neut # (Auto) (1.4-6.5) K/uL Lymph # (Auto) (1.2-3.4) K/uL Kerr # (Auto) (0.11-0.59) K/uL Eos # (Auto) (0-0.5) K/uL Baso # (Auto) (0-0.2) K/uL Immature Gran # (Auto) (0.00-0.02) K/uL APTT (21.0-31.0) Seconds PTT Ratio POC Sodium 138 (135-144) mmol/L Sodium (136-145) mmol/L POC Potassium 4.0 (3.3-5.0) mmol/L Potassium (3.5-5.1) mmol/L POC Chloride 100 L (101-112) mmol/L Chloride (98-107) mmol/L Carbon Dioxide (21-32) mmol/L POC Total CO2 24 (24-31) mmol/L Anion Gap (3-11) POC Anion Gap 20.0 (16-25) mmol/L POC BUN 18 (7-18) mg/dl BUN (7-18) mg/dl Creatinine (0.6-1.2) mg/dl POC Creatinine 0.8 (0.6-1.3) mg/dl Est Cr Clr Drug Dosing Est GFR ( Amer) ml/min Est GFR (Non-Af Amer) ml/min BUN/Creatinine Ratio (10-20) Glucose (70-99) mg/dl POC Glucose (other) 98 (70-99) mg/dl Calcium (8.5-10.1) mg/dl POC Ioniz Calcium Cherelle 1.18 (1.12-1.32) mmol/l Total Bilirubin (0.2-1) mg/dl AST (15-37) U/L ALT (12-78) U/L Alkaline Phosphatase (45-117) U/L Troponin I (0-0.045) ng/ml Total Protein (6.4-8.2) gm/dl Albumin (3.4-5.0) gm/dl Globulin (2.5-4.0) gm/dl Albumin/Globulin Ratio (0.9-2) Lipase (73-393) U/L Urine Color Urine Appearance (Clear) Urine pH (4.5-7.5) Ur Specific Paterson (1.000-1.030) Urine Protein (Negative) Urine Glucose (UA) (Negative) Urine Ketones (Negative) Urine Blood (Negative) Urine Nitrite (Negative) Urine Bilirubin (Negative) Urine Urobilinogen (Negative) Ur Leukocyte Esterase (Negative) COVID-19 Eval Order Covid19 at [facility] SARS-CoV-2 (PCR) Pending 05/22/21 05/21/21 05/21/21 Range/Units 00:00 23:48 23:48 WBC (4.8-10.8) K/uL RBC (4.2-5.4) M/uL Hgb (12.0-16.0) g/dL POC Hgb (12.0-16.0) g/dl Hct (37-47) % POC Hct (37-47) % MCV (80-100) fL MCH (25-34) pg MCHC (32-36) g/dL RDW Std Deviation (36.4-46.3) fL RDW Coeff of Purnima (11.5-14.5) % Plt Count (130-400) K/uL MPV (7.4-10.4) fL Immature Gran % (Auto) % Neut % (Auto) % Lymph % (Auto) % Kerr % (Auto) % Eos % (Auto) % Baso % (Auto) % Neut # (Auto) (1.4-6.5) K/uL Lymph # (Auto) (1.2-3.4) K/uL Kerr # (Auto) (0.11-0.59) K/uL Eos # (Auto) (0-0.5) K/uL Baso # (Auto) (0-0.2) K/uL Immature Gran # (Auto) (0.00-0.02) K/uL APTT 28.5 (21.0-31.0) Seconds PTT Ratio 1.1 POC Sodium (135-144) mmol/L Sodium 137 (136-145) mmol/L POC Potassium (3.3-5.0) mmol/L Potassium 3.9 (3.5-5.1) mmol/L POC Chloride (101-112) mmol/L Chloride 104 (98-107) mmol/L Carbon Dioxide 27 (21-32) mmol/L POC Total CO2 (24-31) mmol/L Anion Gap 6.0 (3-11) POC Anion Gap (16-25) mmol/L POC BUN (7-18) mg/dl BUN 19 H (7-18) mg/dl Creatinine 0.74 (0.6-1.2) mg/dl POC Creatinine (0.6-1.3) mg/dl Est Cr Clr Drug Dosing Not Reportable Est GFR ( Amer) 93.8 ml/min Est GFR (Non-Af Amer) 80.9 ml/min BUN/Creatinine Ratio 25.9 H (10-20) Glucose 94 (70-99) mg/dl POC Glucose (other) (70-99) mg/dl Calcium 8.4 L (8.5-10.1) mg/dl POC Ioniz Calcium Cherelle (1.12-1.32) mmol/l Total Bilirubin 0.2 (0.2-1) mg/dl AST 11 L (15-37) U/L ALT 19 (12-78) U/L Alkaline Phosphatase 114 (45-117) U/L Troponin I < 0.015 (0-0.045) ng/ml Total Protein 6.9 (6.4-8.2) gm/dl Albumin 3.3 L (3.4-5.0) gm/dl Globulin 3.6 (2.5-4.0) gm/dl Albumin/Globulin Ratio 0.9 (0.9-2) Lipase 127 (73-393) U/L Urine Color Yellow Urine Appearance Clear (Clear) Urine pH 6.0 (4.5-7.5) Ur Specific Paterson 1.017 (1.000-1.030) Urine Protein Negative (Negative) Urine Glucose (UA) Negative (Negative) Urine Ketones Negative (Negative) Urine Blood Negative (Negative) Urine Nitrite Negative (Negative) Urine Bilirubin Negative (Negative) Urine Urobilinogen Negative (Negative) Ur Leukocyte Esterase Negative (Negative) COVID-19 Eval Order SARS-CoV-2 (PCR) 05/21/21 Range/Units 23:48 WBC 8.78 (4.8-10.8) K/uL RBC 4.34 (4.2-5.4) M/uL Hgb 12.6 (12.0-16.0) g/dL POC Hgb (12.0-16.0) g/dl Hct 39.0 (37-47) % POC Hct (37-47) % MCV 89.9 (80-100) fL MCH 29.0 (25-34) pg MCHC 32.3 (32-36) g/dL RDW Std Deviation 43.7 (36.4-46.3) fL RDW Coeff of Purnima 13.2 (11.5-14.5) % Plt Count 275 (130-400) K/uL MPV 8.9 (7.4-10.4) fL Immature Gran % (Auto) 0.3 % Neut % (Auto) 67.4 % Lymph % (Auto) 21.0 % Kerr % (Auto) 8.9 % Eos % (Auto) 2.2 % Baso % (Auto) 0.2 % Neut # (Auto) 5.92 (1.4-6.5) K/uL Lymph # (Auto) 1.84 (1.2-3.4) K/uL Kerr # (Auto) 0.78 H (0.11-0.59) K/uL Eos # (Auto) 0.19 (0-0.5) K/uL Baso # (Auto) 0.02 (0-0.2) K/uL Immature Gran # (Auto) 0.03 H (0.00-0.02) K/uL APTT (21.0-31.0) Seconds PTT Ratio POC Sodium (135-144) mmol/L Sodium (136-145) mmol/L POC Potassium (3.3-5.0) mmol/L Potassium (3.5-5.1) mmol/L POC Chloride (101-112) mmol/L Chloride (98-107) mmol/L Carbon Dioxide (21-32) mmol/L POC Total CO2 (24-31) mmol/L Anion Gap (3-11) POC Anion Gap (16-25) mmol/L POC BUN (7-18) mg/dl BUN (7-18) mg/dl Creatinine (0.6-1.2) mg/dl POC Creatinine (0.6-1.3) mg/dl Est Cr Clr Drug Dosing Est GFR ( Amer) ml/min Est GFR (Non-Af Amer) ml/min BUN/Creatinine Ratio (10-20) Glucose (70-99) mg/dl POC Glucose (other) (70-99) mg/dl Calcium (8.5-10.1) mg/dl POC Ioniz Calcium Cherelle (1.12-1.32) mmol/l Total Bilirubin (0.2-1) mg/dl AST (15-37) U/L ALT (12-78) U/L Alkaline Phosphatase (45-117) U/L Troponin I (0-0.045) ng/ml Total Protein (6.4-8.2) gm/dl Albumin (3.4-5.0) gm/dl Globulin (2.5-4.0) gm/dl Albumin/Globulin Ratio (0.9-2) Lipase (73-393) U/L Urine Color Urine Appearance (Clear) Urine pH (4.5-7.5) Ur Specific Paterson (1.000-1.030) Urine Protein (Negative) Urine Glucose (UA) (Negative) Urine Ketones (Negative) Urine Blood (Negative) Urine Nitrite (Negative) Urine Bilirubin (Negative) Urine Urobilinogen (Negative) Ur Leukocyte Esterase (Negative) COVID-19 Eval Order SARS-CoV-2 (PCR) Diagnostic Findings CT HEAD: No intracranial hemorrhage, mass effect or midline shift. There is no abnormal extra axial fluid collection. No evidence of acute infarct. The visualized paranasal sinuses and mastoid air cells are clear. No fracture. Radiologist: Nanette Paz MD CTA HEAD: No significant stenosis, occlusion, aneurysm or dissection. No acute finding. Radiologist: Nanette Paz MD CTA NECK: No significant stenosis, occlusion, aneurysm or dissection. No acute finding. Radiologist: Nanette Paz MD Medications Administered Home Medication List Medication Instructions Recorded montelukast 10 mg tablet 10 mg PO QPM 10/22/18 (Singulair) calcium carbonate-vitamin D3 600 1 tab PO BID 03/17/19 mg (1,500 mg)-800 unit tablet (Caltrate with Vitamin D3) aspirin 81 mg tablet,delayed 81 mg PO QPM #30 tab 08/05/19 release Full Face mask, replacement #1 ea 04/19/20 cushion, disposable and nondisposable filters, tubing, headgear, and water ch carbamazepine 400 mg 400 mg PO TID 90 Days #270 tab 02/13/21 tablet,extended release,12 hr topiramate 200 mg tablet (Topamax) 200 mg PO BID 90 Days #180 tab 02/17/21 lisinopril 40 mg tablet 40 mg PO QPM #90 tab 03/01/21 levothyroxine 175 mcg tablet 175 mcg PO QAM #90 tab 03/06/21 baclofen 10 mg tablet 10 mg PO BID tab 04/21/21 omeprazole 40 mg capsule,delayed 40 mg PO DAILY #30 cap 05/16/21 release acetaminophen 500 mg tablet 1,000 mg PO Q6H PRN 05/22/21 (Tylenol Extra Strength) cholecalciferol (vitamin D3) 25 25 mcg PO BID 05/22/21 mcg (1,000 unit) tablet (Vitamin D3) ezetimibe 10 mg tablet 10 mg PO HS 05/22/21 Supervising Physician Co-Signing Physician Notes Attending addendum: I have physically seen this patient, have supervised the medical residents activities, and agree with the H&P unless as otherwise noted. Assessment and Plan: Intractable vertigo- CT head without contrast negative CTA head neck negative Status post 1 L normal saline in ED Continue NSS at 80 mils per hour Consult PT/OT Trigeminal neuralgia- continue Tegretol Temporarily hold baclofen due to concerns regarding oversedation Hypertension- Continuing lisinopril Remaining orders and notations as noted Resident Activity Tracking Resident Involvement: Resident Care Provided Care Provided: Adult Hospital Medicine
[2021-05-22] MEDS ORDERED: ONDANSETRON INJ 2 MG/ML 2 ML VIAL IV PRN (04:55)
[2021-05-22] MEDS ORDERED: MAGNESIUM HYDROXIDE SUSP 30 ML UDC PO PRN (04:55)
[2021-05-22] MEDS ORDERED: POLYETHYLENE (MIRALAX) 17 GM PACK PO PRN (04:55)
[2021-05-22] MEDS ORDERED: SODIUM CHLORIDE 0.9% 1000ML 1,000 ML IV SCH (05:00)
[2021-05-22] MEDS ORDERED: ACETAMINOPHEN 500 MG TAB PO PRN (05:23)
[2021-05-22] MEDS ORDERED: LEVOTHYROXINE SODIUM 175 MCG TABLET PO SCH (06:30)
--- NOTE | 2021-05-22 06:54 | CT Scan Report ---
CT head/brain wo con CLINICAL HISTORY: Severe headache, dizziness, weakness. COMPARISON STUDY: MRI the brain dated 10/17/2016 TECHNIQUE: Axial CT of the brain is performed from the vertex to the skull base. IV contrast was not administered for this examination. A dose lowering technique was utilized adhering to the principles of ALARA. CT DOSE: 1209.47 mGy.cm FINDINGS: No intra or extra-axial mass lesions are visualized. There is no CT evidence of acute cortical infarc tion. There is no evidence of midline shift. There is no acute hemorrhage. No calvarial fractures ar e visualized. There is no evidence of pathologic ventricular dilatation. There is no evidence of acute sinusitis IMPRESSION: No acute intracranial findings ACT 112: Negative or not required by law. Electronically signed by: Israel Lopez M.D. 05/22/2021 6:52 AM
--- NOTE | 2021-05-22 07:48 | CT Scan Report ---
CT angio neck with con CLINICAL HISTORY: dizzy COMPARISON STUDY: No previous studies for comparison. TECHNIQUE: CT angiography was performed from the aortic arch to the skull base. MIP imaging was perfo rmed. The patient was scanned in a dynamic helical fashion during intravenous administration of 118 c c of Optiray. A dose lowering technique was utilized adhering to the principles of ALARA. CT DOSE: Technique: CT angiogram of the carotid and vertebral arteries was obtained using intravenous contrast and 3-D reconstruction. NASCET criteria was utilized. Findings: The right carotid revealed no evidence of aneurysm and no evidence of dissection. There is no evidenc e of hemodynamic significant stenosis. The left carotid revealed no evidence of hemodynamic significant stenosis. There is no evidence of an eurysm. There is no evidence of dissection. There is no evidence of hemodynamically significant vertebral stenosis. There is no evidence of verte bral dissection. IMPRESSION: No evidence of hemodynamically significant carotid or vertebral artery stenosis. No evidence of disse ction. ACT 112: Negative or not required by law. Electronically signed by: Israel Lopez M.D. 05/22/2021 7:47 AM
--- NOTE | 2021-05-22 08:00 | XRay Report ---
XR chest 1V portable CLINICAL HISTORY: Chest Pain COMPARISON STUDY: Chest radiograph September 18, 2019. FINDINGS: Lung volumes are normal. Lungs are clear. There is no pneumothorax or pleural effusion. Car diac size is stable. Mediastinal contours are normal. There is no evidence for pulmonary edema. IMPRESSION: No acute cardiopulmonary findings. No change in appearance of the chest. ACT 112: Negative or not required by law. Electronically signed by: Elias Wasserman M.D. 05/22/2021 7:58 AM
--- NOTE | 2021-05-22 08:09 | CT Scan Report ---
CT ANGIOGRAM OF THE BRAIN CLINICAL HISTORY: Dizziness. Generalized weakness. COMPARISON STUDY: Unenhanced CT of the brain performed concurrently on 05/22/2021. TECHNIQUE: Following the IV administration of 118 cc of Optiray 320, CT angiogram of the brain was pe rformed from the skull base to the vertex. Images are reviewed in the axial, sagittal, and coronal pl anes. 3-D MIPS images are created and assessed. IV contrast was administered without complication. A dose lowering technique was utilized adhering to the principles of ALARA. FINDINGS: Brain parenchyma: There is mild age-related involutional change. There is no hemorrhage, mass effect, or evidence of acute territorial ischemia by CT criteria. There is no evidence of enhancing mass les ion on the angiogram phase images. No extra-axial fluid collection is seen. Mejia-white matter differe ntiation is preserved. Ventricles, sulci, and cisterns: Normal in configuration. CT angiogram of the brain: The internal carotid arteries are widely patent, as are the anterior and m iddle cerebral arteries. The vertebrobasilar system and posterior cerebral arteries are widely patent . The vertebral arteries are codominant. There is no aneurysm, high-grade stenosis, or focal vessel c utoff identified throughout the intracranial circulation. Dural sinuses: Clear as visualized. Orbits: The bony orbits are intact. The orbital contents are normal as visualized. Sinuses and mastoids: The visualized paranasal sinuses are clear. The mastoid air cells are well pneu matized. Calvarium: Unremarkable. IMPRESSION: 1. There is no evidence of hemorrhage, mass effect, or acute territorial ischemia by CT criteria noti ng angiographic phase technique. 2. Unremarkable CT angiogram of the brain. ACT 112: Negative or not required by law. Electronically signed by: Jose Rowell M.D. 05/22/2021 8:08 AM
[2021-05-22] MEDS ORDERED: PANTOprazole 40 MG TAB PO SCH (09:00)
[2021-05-22] MEDS ORDERED: TOPIRAMATE 100 MG TAB PO SCH (09:00)
--- NOTE | 2021-05-22 13:25 | Electrocardiogram Report ---
Test Reason : Blood Pressure : / mmHG Vent. Rate : 072 BPM Atrial Rate : 072 BPM P-R Int : 174 ms QRS Dur : 080 ms QT Int : 396 ms P-R-T Axes : 087 046 055 degrees QTc Int : 433 ms Normal sinus rhythm Normal ECG When compared with ECG of 18-SEP-2019 12:47, No significant change was found Confirmed by Mark Salamanca ([id number]) on 05/22/2021 1:25:01 PM Referred By: REFERRED SELF Confirmed By:Mark Salamanca
--- NOTE | 2021-05-22 14:18 | Medical Student Progress Note ---
Date of Service May 22, 2021 Assessment & Plan (1) Vertigo: Plan: -Likely multifactorial in the setting of potential dehydration and polypharmacy -CT head and CTA head/neck demonstrating no acute intracranial process or significant stenosis/occlusion/aneurysm of cervical or intracranial vasculature -Received 1 L bolus in ED with slight improvement in overall symptoms -Continue rehydration with NS@80/hr -PT/OT evaluation given concerns for instability with gait (2) Trigeminal neuralgia: Plan: Trigeminal neuralgia: -Continuation of Tegretol 400 mg 3 times daily -Baclofen held last night when admitted and has not had any symptoms concerning for trigeminal neuralgia -Continue holding Baclofen -Follow up with Neurology as an outpatient to see which medications may not be necessary -Patient would likely benefit from pill packs going forward as "mental fog" may lead to unintentional polypharmacy (3) Wheezing on expiration: Plan: Wheezing on expiration: -Slight wheeze heard in RML/RLL on auscultation -Patient mentions hearing audible wheeze in the mornings, but things to subside throughout the day -Not dyspneic -Continue home Montelukast 10 mg PO qPM (4) Hypertension, benign: Plan: Hypertension: -Continue home lisinopril (5) Chronic gastroesophageal reflux disease: Plan: GERD: -Continue PPI with utilization of hospital formulary (6) Hypothyroid: Plan: Hypothyroidism: -Continue home Synthroid regimen (7) Polypharmacy: Plan: -Follow up with Neurology as an outpatient to see which medications may not be necessary -Patient would likely benefit from pill packs going forward as "mental fog" may lead to unintentional polypharmacy Diet: Regular CODE STATUS: Full code DVT prophylaxis: Deferred at this time Plan: See above Admission and Anticipated Discharge Date Admission Date: May 22, 2021 Liliam Box is a 71-year-old female with past medical history significant for trigeminal neuralgia, hypothyroidism, hyperlipidemia, hypertension, GERD, and anxiety; who presented for approximately 36 hours of persistent vertiginous symptoms. Symptoms started Saturday afternoon, initially patient thought nothing of it and thought that she was just having more of a sinus congestion. Tried to take oral decongestant medication as at times in the past this has resolved these types of episodes before. However continued did not have improvement in her symptoms. Ultimately went to bed Saturday night feeling increasingly unsteady on her feet, and requiring assistance from her in order to do so. Woke up Saturday morning with the symptoms continuing even at rest, and worsened by all physical activity. Noticed when she was trying to s donita since seated and read the newspaper she would feel her arms and hands "jerk" at the same time. Had no bowel or bladder incontinence at this time. Continues to feel unsteady on her feet at this time, but okay while seated. She prepares her own medications in pillboxes, weekly, and tracks how many pills during each 1 by counting both a.m. and p.m. doses knows that there are supposed to be 5 pills in the morning pack and 9 pills in the p.m. pack. has noted that since starting on some of her medications for trigeminal neuralgia she has been needing a prolonged "mental fog" and had difficulty with word finding frequently. Has noted that this "mental fog" has been present for many months however fear about potential trigeminal pain as this can be debilitating. additionally notes that at times over the last several months she has reached the point where she is falling asleep in the car, and he has grown concerned at the potential for her to fall asleep behind the wheel. They have taken steps to try to avoid these scenarios from being allowed; however, he still has these concerns at this time given the persistence of this. Previously had tried with neurology to come off the baclofen with transition to gabapentin however this failed given symptoms and leg swelling on gabapentin. Overall, patient says she's feeling 40% better. She has been able to ambulate to the bathroom with her walker instead of needing assistance with a person and says she didn't feel "tipsy" while moving. She also says that her "jerking arms" and numbness around her mouth have gone away. Anita speaks about a head "fullness" that provides her discomfort, mainly localized in the central part of her forehead and top half of her head. She does not endorse any changes in her vision, photophobia, nausea, vomiting, or recent illness. Of note, she mentions having a chronic runny nose for which she takes singulair. These symptoms have not worsened with her acute vertiginous-symptoms. When walking into the room, she is sitting up in bed, eating breakfast, and looking out of the window. Review of Systems Review of Systems: All systems reviewed & are unremarkable except as noted in HPI & below Eyes: as per Subjective / HPI; no diplopia, no photophobia and no worsening vision Ear, Nose, Mouth, Throat: as per Subjective / HPI Respiratory: as per Subjective / HPI; no cough and no dyspnea on exertion Cardiovascular: as per Subjective / HPI; no chest pain Gastrointestinal: as per Subjective / HPI; no abdominal pain, no nausea and no vomiting Neurologic: as per Subjective / HPI, + unsteadiness and + headache(s) ("fullness"); no numbness and no tremor(s) Psychiatric: as per Subjective / HPI Physical Exam Constitutional: WD/WN, vitals as above Eyes: PERRL, conjunctivae normal, anicteric sclerae Respiratory: normal respiratory effort and + audible wheezes (RML/RLL); no cough Cardiovascular: RRR, no murmur, no edema Extremities: + edema (slight edema in right wrist/hand) Skin: no rashes, warm and dry Neurologic: PERRL, EOMI, accommodation nl, no face palsy, no dysarthria Results & Data ([facility]) Vital Signs (Past 12 Hours) Vital Signs Temp Pulse Pulse Resp BP BP Pulse Ox 05/22/21 04:50 36.5 C 72 18 164/85 H 97 05/22/21 04:23 70 14 141/70 H 100 05/22/21 02:00 65 18 165/80 H Laboratory Results Laboratory Results WBC 8.78 K/uL (4.8-10.8) 05/21/21 23:48 RBC 4.34 M/uL (4.2-5.4) 05/21/21 23:48 Hgb 12.6 g/dL (12.0-16.0) 05/21/21 23:48 POC Hgb 13.3 g/dl (12.0-16.0) 05/22/21 00:04 Hct 39.0 % (37-47) 05/21/21 23:48 POC Hct 39 % (37-47) 05/22/21 00:04 MCV 89.9 fL (80-100) 05/21/21 23:48 MCH 29.0 pg (25-34) 05/21/21 23:48 MCHC 32.3 g/dL (32-36) 05/21/21 23:48 RDW Std Deviation 43.7 fL (36.4-46.3) 05/21/21 23:48 RDW Coeff of Purnima 13.2 % (11.5-14.5) 05/21/21 23:48 Plt Count 275 K/uL (130-400) 05/21/21 23:48 MPV 8.9 fL (7.4-10.4) 05/21/21 23:48 Immature Gran % (Auto) 0.3 % 05/21/21 23:48 Neut % (Auto) 67.4 % 05/21/21 23:48 Lymph % (Auto) 21.0 % 05/21/21 23:48 [place] % (Auto) 8.9 % 05/21/21 23:48 Eos % (Auto) 2.2 % 05/21/21 23:48 Baso % (Auto) 0.2 % 05/21/21 23:48 Neut # (Auto) 5.92 K/uL (1.4-6.5) 05/21/21 23:48 Lymph # (Auto) 1.84 K/uL (1.2-3.4) 05/21/21 23:48 [place] # (Auto) 0.78 K/uL (0.11-0.59) H 05/21/21 23:48 Eos # (Auto) 0.19 K/uL (0-0.5) 05/21/21 23:48 Baso # (Auto) 0.02 K/uL (0-0.2) 05/21/21 23:48 Immature Gran # (Auto) 0.03 K/uL (0.00-0.02) H 05/21/21 23:48 APTT 28.5 Seconds (21.0-31.0) 05/21/21 23:48 PTT Ratio 1.1 05/21/21 23:48 POC Sodium 138 mmol/L (135-144) 05/22/21 00:04 Sodium 137 mmol/L (136-145) 05/21/21 23:48 POC Potassium 4.0 mmol/L (3.3-5.0) 05/22/21 00:04 Potassium 3.9 mmol/L (3.5-5.1) 05/21/21 23:48 POC Chloride 100 mmol/L (101-112) L 05/22/21 00:04 Chloride 104 mmol/L (98-107) 05/21/21 23:48 Carbon Dioxide 27 mmol/L (21-32) 05/21/21 23:48 POC Total CO2 24 mmol/L (24-31) 05/22/21 00:04 Anion Gap 6.0 (3-11) 05/21/21 23:48 POC Anion Gap 20.0 mmol/L (16-25) 05/22/21 00:04 POC BUN 18 mg/dl (7-18) 05/22/21 00:04 BUN 19 mg/dl (7-18) H 05/21/21 23:48 Creatinine 0.74 mg/dl (0.6-1.2) 05/21/21 23:48 POC Creatinine 0.8 mg/dl (0.6-1.3) 05/22/21 00:04 Est Cr Clr Drug Dosing Not Reportable 05/21/21 23:48 Est GFR ( Amer) 93.8 ml/min 05/21/21 23:48 Est GFR (Non-Af Amer) 80.9 ml/min 05/21/21 23:48 BUN/Creatinine Ratio 25.9 (10-20) H 05/21/21 23:48 Glucose 94 mg/dl (70-99) 05/21/21 23:48 POC Glucose (other) 98 mg/dl (70-99) 05/22/21 00:04 Calcium 8.4 mg/dl (8.5-10.1) L 05/21/21 23:48 POC Ioniz Calcium [place] 1.18 mmol/l (1.12-1.32) 05/22/21 00:04 Total Bilirubin 0.2 mg/dl (0.2-1) 05/21/21 23:48 AST 11 U/L (15-37) L 05/21/21 23:48 ALT 19 U/L (12-78) 05/21/21 23:48 Alkaline Phosphatase 114 U/L (45-117) 05/21/21 23:48 Troponin I < 0.015 ng/ml (0-0.045) 05/21/21 23:48 Total Protein 6.9 gm/dl (6.4-8.2) 05/21/21 23:48 Albumin 3.3 gm/dl (3.4-5.0) L 05/21/21 23:48 Globulin 3.6 gm/dl (2.5-4.0) 05/21/21 23:48 Albumin/Globulin Ratio 0.9 (0.9-2) 05/21/21 23:48 Lipase 127 U/L (73-393) 05/21/21 23:48 Urine Color Yellow 05/22/21 00:00 Urine Appearance Clear (Clear) 05/22/21 00:00 Urine pH 6.0 (4.5-7.5) 05/22/21 00:00 Ur Specific [place] 1.017 (1.000-1.030) 05/22/21 00:00 Urine Protein Negative (Negative) 05/22/21 00:00 Urine Glucose (UA) Negative (Negative) 05/22/21 00:00 Urine Ketones Negative (Negative) 05/22/21 00:00 Urine Blood Negative (Negative) 05/22/21 00:00 Urine Nitrite Negative (Negative) 05/22/21 00:00 Urine Bilirubin Negative (Negative) 05/22/21 00:00 Urine Urobilinogen Negative (Negative) 05/22/21 00:00 Ur Leukocyte Esterase Negative (Negative) 05/22/21 00:00 COVID-19 Eval Order Covid19 at [facility] 05/22/21 02:25 SARS-CoV-2 (PCR) NEGATIVE (Negative) 05/22/21 02:[address] 05/21/21 23:16 CT head/brain wo con CLINICAL HISTORY: Severe headache, dizziness, weakness. COMPARISON STUDY: MRI the brain dated 10/17/2016 TECHNIQUE: Axial CT of the brain is performed from the vertex to the skull base. IV contrast was not administered for this examination. A dose lowering technique was utilized adhering to the principles of ALARA. CT DOSE: 1209.47 mGy.cm FINDINGS: No intra or extra-axial mass lesions are visualized. There is no CT evidence of acute cortical infarction. There is no evidence of midline shift. There is no acute hemorrhage. No calvarial fractures are visualized. There is no evidence of pathologic ventricular dilatation. There is no evidence of acute sinusitis IMPRESSION: No acute intracranial findings ACT 112: Negative or not required by law. Electronically signed by: Israel Lopez M.D. 05/22/2021 6:52 AM Chest X-Ray 05/21/21 23:17 XR chest 1V portable CLINICAL HISTORY: Chest Pain COMPARISON STUDY: Chest radiograph September 18, 2019. FINDINGS: Lung volumes are normal. Lungs are clear. There is no pneumothorax or pleural effusion. Cardiac size is stable. Mediastinal contours are normal. There is no evidence for pulmonary edema. IMPRESSION: No acute cardiopulmonary findings. No change in appearance of the chest. ACT 112: Negative or not required by law. Electronically signed by: Elias Wasserman M.D. 05/22/2021 7:58 AM Head CTA 05/21/21 23:17 CT ANGIOGRAM OF THE BRAIN CLINICAL HISTORY: Dizziness. Generalized weakness. COMPARISON STUDY: Unenhanced CT of the brain performed concurrently on 05/22/2021. TECHNIQUE: Following the IV administration of 118 cc of Optiray 320, CT angiogram of the brain was performed from the skull base to the vertex. Images are reviewed in the axial, sagittal, and coronal planes. 3-D MIPS images are created and assessed. IV contrast was administered without complication. A dose lowering technique was utilized adhering to the principles of ALARA. FINDINGS: Brain parenchyma: There is mild age-related involutional change. There is no hemorrhage, mass effect, or evidence of acute territorial ischemia by CT criteria. There is no evidence of enhancing mass lesion on the angiogram phase images. No extra-axial fluid collection is seen. Mejia-white matter differentiation is preserved. Ventricles, sulci, and cisterns: Normal in configuration. CT angiogram of the brain: The internal carotid arteries are widely patent, as are the anterior and middle cerebral arteries. The vertebrobasilar system and posterior cerebral arteries are widely patent. The vertebral arteries are codominant. There is no aneurysm, high-grade stenosis, or focal vessel cutoff identified throughout the intracranial circulation. Dural sinuses: Clear as visualized. Orbits: The bony orbits are intact. The orbital contents are normal as visualized. Sinuses and mastoids: The visualized paranasal sinuses are clear. The mastoid air cells are well pneumatized. Calvarium: Unremarkable. IMPRESSION: 1. There is no evidence of hemorrhage, mass effect, or acute territorial ischemia by CT criteria noting angiographic phase technique. 2. Unremarkable CT angiogram of the brain. ACT 112: Negative or not required by law. Electronically signed by: Jose Rowell M.D. 05/22/2021 8:08 AM Neck CTA 05/21/21 23:17 CT angio neck with con CLINICAL HISTORY: dizzy COMPARISON STUDY: No previous studies for comparison. TECHNIQUE: CT angiography was performed from the aortic arch to the skull base. MIP imaging was performed. The patient was scanned in a dynamic helical fashion during intravenous administration of 118 cc of Optiray. A dose lowering technique was utilized adhering to the principles of ALARA. CT DOSE: Technique: CT angiogram of the carotid and vertebral arteries was obtained using intravenous contrast and 3-D reconstruction. NASCET criteria was utilized. Findings: The right carotid revealed no evidence of aneurysm and no evidence of dissection. There is no evidence of hemodynamic significant stenosis. The left carotid revealed no evidence of hemodynamic significant stenosis. There is no evidence of aneurysm. There is no evidence of dissection. There is no evidence of hemodynamically significant vertebral stenosis. There is no evidence of vertebral dissection. IMPRESSION: No evidence of hemodynamically significant carotid or vertebral artery stenosis. No evidence of dissection. ACT 112: Negative or not required by law. Electronically signed by: Israel Lopez M.D. 05/22/2021 7:47 AM Medications Administered Current Inpatient Medications Acetaminophen (Acetaminophen 500 Mg Tab) 1,000 mg PO Q6H PRN PRN Reason: Pain Stop: 06/21/21 05:22 Aspirin (Aspirin 81 Mg Ectab) 81 mg PO QPM RUDY Stop: 06/21/21 20:59 Carbamazepine (Carbamazepine 200 Mg Tabcr) 400 mg PO TID RUDY Stop: 06/21/21 08:59 Last Admin: 05/22/21 10:14 Dose: 400 mg Documented by: Ezetimibe (Ezetimibe 10 Mg Tablet) 10 mg PO HS RUDY Stop: 06/21/21 20:59 Sodium Chloride (Nss 1000ml) 1,000 mls @ 80 mls/hr IV .[id number] RUDY Stop: 06/21/21 04:59 Last Admin: 05/22/21 05:04 Dose: 80 mls/hr Documented by: Levothyroxine Sodium (Levothyroxine Sodium 175 Mcg Tablet) 175 mcg PO DAILYBB RUDY Stop: 06/21/21 06:29 Last Admin: 05/22/21 06:50 Dose: 175 mcg Documented by: Lisinopril (Lisinopril 40 Mg Tab) 40 mg PO QPM [facility] Stop: 06/21/21 20:59 Magnesium Hydroxide (Magnesium Hydroxide Susp 30 Ml Udc) 30 ml PO Q6H PRN PRN Reason: Constipation Stop: 06/21/21 04:54 Montelukast Sodium (Montelukast Sodium 10 Mg Tablet) 10 mg PO QPM RUDY Stop: 06/21/21 20:59 Ondansetron HCl (Ondansetron Inj 2 Mg/Ml 2 Ml Vial) 4 mg IV Q6H PRN PRN Reason: Nausea Stop: 06/21/21 04:54 Pantoprazole Sodium (Pantoprazole 40 Mg Tab) 40 mg PO QAM RUDY Stop: 06/21/21 08:59 Last Admin: 05/22/21 10:14 Dose: 40 mg Documented by: Polyethylene Glycol (Polyethylene (Miralax) 17 Gm Pack) 17 gm PO DAILY PRN PRN Reason: Constipation Stop: 06/21/21 04:54 Topiramate (Topiramate 100 Mg Tab) 200 mg PO BID RUDY Stop: 06/21/21 08:59 Last Admin: 05/22/21 10:14 Dose: 200 mg Documented by:
--- NOTE | 2021-05-22 16:27 | Med Student Discharge Summary ---
Date of Service May 22, 2021 Admission HPI Per Admitting Provider Anita Box is a 71-year-old female with past medical history significant for trigeminal neuralgia, hypothyroidism, hyperlipidemia, hypertension, GERD, and anxiety; who presented for approximately 36 hours of persistent vertiginous symptoms. Symptoms started Saturday afternoon, initially patient thought nothing of it and thought that she was just having more of a sinus congestion. Tried to take oral decongestant medication as at times in the past this has resolved these types of episodes before. However continued did not have improvement in her symptoms. Ultimately went to bed Saturday night feeling increasingly unsteady on her feet, and requiring assistance from her in order to do so. Woke up Saturday morning with the symptoms continuing even at rest, and worsened by all physical activity. Noticed when she was trying to stay since seated and read the newspaper she would feel her arms and hands "jerk" at the same time. Had no bowel or bladder incontinence at this time. Continues to feel unsteady on her feet at this time, but okay while seated. She prepares her own medications in pillboxes, weekly, and tracks how many pills during each 1 by counting both a.m. and p.m. doses knows that there are supposed to be 5 pills in the morning pack and 9 pills in the p.m. pack. has noted that since starting on some of her medications for trigeminal neuralgia she has been needing a prolonged "mental fog" and had difficulty with word finding frequently. Has noted that this "mental fog" has been present for many months however fear about potential trigeminal pain as this can be debilitating. additionally notes that at times over the last several months she has reached the point where she is falling asleep in the car, and he has grown concerned at the potential for her to fall asleep behind the wheel. They have taken steps to try to avoid these scenarios from being allowed; however, he still has these concerns at this time given the persistence of this. Previously had tried with neurology to come off the baclofen with transition to gabapentin however this failed given symptoms and leg swelling on gabapentin. Admission Exam (Per Admitting) Constitutional WD/WN, vitals as above Eyes PERRL, conjunctivae normal, anicteric sclerae Respiratory normal respiratory effort and + audible wheezes (RML/RLL); no cough Cardiovascular RRR, no murmur, no edema Extremities: + edema (slight edema in right wrist/hand) Skin no rashes, warm and dry Neurologic PERRL, EOMI, accommodation nl, no face palsy, no dysarthria Discharge Data Consultations 05/22/21 01:42 ED Decision to Admit Stat Hospital Course (1) Acute labyrinthitis: -Thinking this is the likely etiology due to the nature of her ongoing "dizziness" -- "something keeps moving and I don't" -Negative John-Hallpike with PT/OT, so likely not BPPV - also had similar symptoms last week, supporting a potential viral etiology -Likely multifactorial in the setting of potential dehydration and polypharmacy as well -CT head and CTA head/neck demonstrating no acute intracranial process or significant stenosis/occlusion/aneurysm of cervical or intracranial vasculature -Received 1 L bolus in ED with slight improvement in overall symptoms (2) Trigeminal neuralgia: Trigeminal neuralgia: -Continuation of Tegretol 400 mg 3 times daily -Baclofen held last night when admitted and has not had any symptoms concerning for trigeminal neuralgia -Continue holding Baclofen -Follow up with Neurology as an outpatient to see which medications may not be necessary -Patient would likely benefit from pill packs going forward as "mental fog" may lead to unintentional polypharmacy (3) Wheezing on expiration: Wheezing on expiration: -Slight wheeze heard in RML/RLL on auscultation -Patient mentions hearing audible wheeze in the mornings, but things to subside throughout the day -Not dyspneic -Continue home Montelukast 10 mg PO qPM (4) Hypertension, benign: Hypertension: -Continue home lisinopril (5) Chronic gastroesophageal reflux disease: GERD: -Continue PPI with utilization of hospital formulary (6) Hypothyroid: Hypothyroidism: -Continue home Synthroid regimen (7) Polypharmacy: -Follow up with Neurology as an outpatient to see which medications may not be necessary -Patient would likely benefit from pill packs going forward as "mental fog" may lead to unintentional polypharmacy See above Discharge Plan Discharge Items Patient Disposition: Home - Self-Care Reason For Visit: VERTIGO Discharge Diagnosis: vertigo Condition on Discharge: Good Health Concerns: -Fall Risk -Trigeminal Neuralgia -Potential Polypharmacy Goals: -Continue taking it easy and slow with body movements, such as head movements, ambulating and bending over -Work with Dr. Rodriguez to work on cutting back medications for trigeminal neuralgia since flares are not happening regularly, especially in the warmer months. Check in with him every 2-4 weeks to keep him him up-to-date on your symptoms to help with medical management and hopefully a reduction in "mental fog" Activity: Per Instructions section Non-emergency contact: Primary Care Provider and Neurologist Call non-emergency contact if: your symptoms worsen Follow-up/Referrals: Cesar Crenshaw MD [Primary Care Provider] - 05/29/21 9:30 am Diet: Regular Addtl Attending Provider Instructions: Dizziness You were admitted to the hospital for persistent dizziness and head fullness since Saturday. We evaluated you and imaging of your brain looking at the vessels were reassuring. You likely have Labyrinthitis from a viral infection although the fullness and fogginess may be related to some of the medications that you are currently taking. We will stop the Baclofen that you are currently taking and have you follow up with Dr. Rodriguez and potentially peel back some of your medications. With viral labyrinthitis we expect that you will improve slowly over time commonly days to a week, uncommonly longer. - continue to drink plenty of fluids - ensure that you are steady prior to walking and use your walker to get around - avoid movements that make your dizziness worse follow up: Neurology 2-[address] Rodriguez Return precautions: If you develop symptoms of dizziness that are worsening and you are not able to get out of bed call or come in get evaluated. Pending Studies at Discharge: No Stand-Alone Forms: [facility], Sm[facility] Cess[facility] Medications and DC Order Prescriptions: Continued (DME) Full Face mask, replacement cushion, disposable and nondisposable filters, tubing, headgear, and water ch Qty: 1 RF: 0 topiramate [Topamax] 200 mg tablet 200 mg PO BID 90 Days Qty: 180 RF: 1 levothyroxine 175 mcg tablet 175 mcg PO QAM Qty: 90 RF: 0 omeprazole 40 mg capsule,delayed release(DR/EC) 40 mg PO DAILY Qty: 30 RF: 5 aspirin 81 mg tablet,delayed release (DR/EC) 81 mg PO QPM Qty: 30 RF: 0 carbamazepine 400 mg tablet extended release 12 hr 400 mg PO TID 90 Days Qty: 270 RF: 1 lisinopril 40 mg tablet 40 mg PO QPM Qty: 90 RF: 3 calcium carbonate-vitamin D3 [Caltrate with Vitamin D3] 600 mg(1,500mg) -800 unit Tablet 1 tab PO BID RF: 0 montelukast [Singulair] 10 mg Tablet 10 mg PO QPM RF: 0 cholecalciferol (vitamin D3) [Vitamin D3] 25 mcg (1,000 unit) Tablet 25 mcg PO BID RF: 0 acetaminophen [Tylenol Extra Strength] 500 mg Tablet 1,000 mg PO Q6H PRN (Reason: Pain) RF: 0 ezetimibe 10 mg tablet 10 mg PO HS RF: 0 Discontinued baclofen 10 mg tablet 10 mg PO BID RF: 0 Discharge Orders: Discharge Order (Routine); Ordered 05/22/21 Ordered By: Timothy Ny Admission Data Admit Date/Time: 05/22/21 03:08 Attending Provider: Erwin Gardiner Admit Provider: Antonio Zamudio Primary Care Provider: Cesar Crenshaw Other Providers: Ace Palma Other Interventions: Discharge Summary Assessment (RN) Last Done: 05/22/21 16:53 Supervising Attestation I personally examined the patient and verified all gusman points of history and exam, discussed case, and agree with decision making with Amelia Lewis MS4, and Dr Ny Feeling a good bit better. Noted that she still felt vertiginous whenever she was getting up to go to the bathroomespecially whenever she bent down and then stood up again. However overall, she notes it is far better than it was. PT input noted and appreciated. Discussed situation in depth with patient and , they expressed understanding. She also notes her trigeminal neuralgia is under far better control than it used to be. Vitals noted, in general she is awake and alert pleasant no distress. HEENT normocephalic atraumatic mucous membranes moist. Breathing unlabored no accessory muscle use good effort. Skin shows no rashes no pallor or icterus. Neuro without focal deficitsno nystagmus noted. Unsteadiness/weakness/vertigogiven the abrupt onset and the unsteadiness that came with it, certainly it appears that something along the lines of a viral labyrinthitis is at play acutely, but this seems to be superimposed on a chronic degree of polypharmacy. Baclofen has been stopped, she seems to be tolerating this well. In discussion with her, neurology has been trying to work with her to wean down on some of her medications for trigeminal neuralgia for a while, but she has been very reticent to. After we had discussions on how much better the trigeminal neuralgia seems to be now than what ever it was first diagnosed, she is now much more willing to work with neurology to slowly wean back on medicines to the lowest necessary dosing, so as to minimize her side effect/polypharmacy risk. We discussed the typical use of antihistamines for labyrinthitisgiven that they can be quite sedating as well, we all agreed that it was better to not utilize this intervention so as to minimize iatrogenic harm. Stable for homewe discussed going slow and very careful, looking at every movement as a potential fall risk, and using her walker until the labyrinthitis portion of her symptoms lifts. She and her were very comfortable with going home under this set of conditions.
--- NOTE | 2021-05-22 17:57 | Billing Data ---
Date of Service May 22, 2021 Coding Level of Care Code 59253 OBS Care - Discharge
[2021-05-22] MEDS ORDERED: ASPIRIN 81 MG ECTAB PO SCH (21:00)
[2021-05-22] MEDS ORDERED: EZETIMIBE 10 MG TABLET PO SCH (21:00)
[2021-05-22] MEDS ORDERED: lisinopril 40 MG TAB PO SCH (21:00)
[2021-05-22] MEDS ORDERED: MONTELUKAST SODIUM 10 MG TABLET PO SCH (21:00)
--- NOTE | 2021-05-23 02:55 | Billing Data ---
Date of Service May 23, 2021 Coding Level of Care Code INT OBSERVATION CARE 69M LVL 3
== END 2021-05-22 17:33 | disposition home or self-care (01) ==
LOC: 3E 21:19 → ED 21:19 → SUATTDRO 05-22 03:08 → 3E 05-22 04:23

== ENCOUNTER 2022-05-25 09:22 | Observation (INO) ==
[2022-05-25] MEDS ORDERED: SODIUM CHLORIDE 0.9% 1000ML 1,000 ML IV STA (09:54)
[2022-05-25] MEDS ORDERED: ONDANSETRON INJ 2 MG/ML 2 ML VIAL IV STA ×2 (09:54→13:24)
[2022-05-25] MEDS ORDERED: ACETAMINOPHEN 1000 MG/100 ML IV IV ONE (09:58)
--- NOTE | 2022-05-25 10:11 | Emergency Department Note ---
History of Present Illness General Chief complaint: Abdominal Pain Stated complaint: DIARRHEA, ABDOMINAL PAIN Time Seen by Provider: 05/25/22 09:35 History of Present Illness Maximum Pain Intensity: 8 72-year-old female who presents to the emergency department with her for evaluation of severe lower belly pain, diarrhea and rectal bleeding. The patient reports that the pain started at 4 AM this morning. She reported sweatiness and nausea without vomiting. The patient reports that she and her took an [employer] tour at the early part of this month. The patient did contract COVID-19 without any significant symptoms during her travels. Upon further questioning, the patient reports a prior history of diverticulitis last spring. She followed up with Dr. Juarez who did perform an upper endoscopy and colonoscopy that did not show any other concerning findings. The patient reports that she is very careful with her diet, and does not know if this could be another incident of diverticulitis. She denies any preceding constipation, urinary symptoms or pain radiating into the back. Patient denies history of kidney stones. The patient rates her discomfort an 8 out of 10. She reports that sitting up does improve the pain. Home Medications Medication Instructions Recorded Confirmed Type montelukast 10 mg tablet 10 mg PO QPM 10/22/18 05/25/22 History (Singulair) calcium carbonate 600 mg-vitamin 1 tab PO BID 03/17/19 05/25/22 History D3 20 mcg (800 unit) tablet (Caltrate with Vitamin D3) aspirin 81 mg tablet,delayed 81 mg PO QPM #30 tabs 08/05/19 05/25/22 History release acetaminophen 500 mg tablet 1,000 mg PO Q6H PRN Pain 05/22/21 05/25/22 History (Tylenol Extra Strength) cholecalciferol (vitamin D3) 25 25 mcg PO BID 05/22/21 05/25/22 History mcg (1,000 unit) tablet (Vitamin D3) levothyroxine 150 mcg tablet 150 mcg PO DAILY #90 tabs 11/07/21 05/25/22 Rx carbamazepine 400 mg 400 mg PO BID 90 days #180 tabs 02/12/22 05/25/22 Rx tablet,extended release,12 hr ezetimibe 10 mg tablet 10 mg PO HS #90 tabs 02/12/22 05/25/22 Rx topiramate 200 mg tablet (Topamax) 200 mg PO BID 90 days #180 tabs 02/12/2205/05 Rx pantoprazole 40 mg tablet,delayed 40 mg PO DAILY 02/26/22 05/25/22 History release (Protonix) cyanocobalamin (vitamin B-12) 1,000 mcg subcut .COMPLEX #4 mL 02/28/22 05/25/22 Rx 1,000 mcg/mL injection solution lisinopril 40 mg tablet 40 mg PO QPM #90 tabs 03/05/22 05/25/22 Rx Breo Ellipta 100 mcg-25 mcg/dose 1 inh inhalation DAILY #60 ea 04/19/22 05/25/22 Rx powder for inhalation (fluticasone furoate-vilanterol) albuterol sulfate 90 mcg/actuation 2 puff inhalation Q6H PRN 04/19/22 05/25/22 Rx aerosol inhaler Shortness Of Breath Or Wheezing #18 grams azelastine 137 mcg (0.1 %) nasal 1 spray intranasal BID PRN Nasal 05/25/22 05/25/22 History spray aerosol Congestion baclofen 10 mg tablet 10 mg PO BID PRN Muscle Pain 05/25/22 05/25/22 History Allergies Allergy/AdvReac Type Severity Reaction Status Date / Time nitrous oxide Allergy Severe laughing Verified 05/25/22 16:27 gas = couldn't breath NSAIDS (Non-Steroidal Allergy Severe RAPID HR, Verified 05/25/22 16:27 Anti-Inflamma RESP DISTRESS etodolac Allergy Unknown RAPID Verified 05/25/22 16:27 HEARTBEAT, RESPIRATORY DISTRESS naproxen Allergy Unknown RAPID Verified 05/25/22 16:27 HEART BEATS, RESPIRATORY DISTRESS morphine Allergy trouble Verified 05/25/22 16:27 breathing ibandronate sodium AdvReac Severe SEVERE Verified 05/25/22 16:27 MUSCLE AND BONE PAIN Ditropan Allergy Unknown Unknown Uncoded 05/25/22 16:27 hydroCHLOROthiazide TABS Allergy Unknown Unknown Uncoded 05/25/22 16:27 Lodine TABS Allergy Unknown Unknown Uncoded 05/25/22 16:27 Septra TABS Allergy Unknown Unknown Uncoded 05/25/22 16:27 Past Med/Surg History Medical History Acid reflux Anxiety Chronic gastroesophageal reflux disease Diverticulitis Family history of reaction to anesthesia SISTER - N/V GERD (gastroesophageal reflux disease) High cholesterol HTN (hypertension) Hypothyroid Osteoporosis Sleep apnea CPAP Trigeminal neuralgia Urinary incontinence & FREQUENCY...HAS PROLAPSED BLADDER Wheezing on expiration Surgical History H/O: hysterectomy History of section History of cholecystectomy History of colonoscopy History of endoscopy History of hernia surgery INCISIONAL History of surgery GAMMA KNIFE, FACE X 2 History of total right knee replacement 2011 [facility] History of umbilical hernia repair Status post left knee replacement Family History Mother History of COPD Emphysema lung Father History of heart attack Myocardial infarction Sister COPD (chronic obstructive pulmonary disease) two sisters have COPD Other History of heart disease History of high blood pressure Denies family history of Ovarian cancer Prostate cancer Breast cancer Colorectal cancer Social History Smoking Status: Never smoker Second Hand Exposure: No; Hx Alcohol Use: No Hx Substance Use: No Preferred Language: Senegalese Communication Ability: Effective Hearing Ability: Normal Floatlight Powder Mixer Required: No Beliefs That Will Affect Care: None marital status: Current Living Situation: Spouse Current Living Situation Comment: spouse and adult daughter current occupational status: retired How many Children do You have: 3 Feels Safe at Home: Yes Childhood Exposure to Second-Hand Smoke: Yes Seatbelt Use: always Sunscreen Use: Yes Assistive Devices: Glasses Review of Systems 10 system review was performed and was negative except for pertinent positives and negatives as indicated in history of present illness Physical Exam Vital Signs Vital Signs - 24 hr 05/25/22 09:31 05/25/22 11:04 05/25/22 12:18 Temperature 36.4 C L Temperature Source Temporal Artery Scan Pulse Rate 83 Pulse Rate [Finger] Pulse Rate from SpO2 Sensor Respiratory Rate 18 14 Respiratory Effort / Characteristics Non-Labored Respiratory Depth Normal Blood Pressure 187/83 H 165/72 H Blood Pressure [Right Arm] 150/70 H Blood Pressure Mean 117 103 Blood Pressure Mean [Right Arm] 96 Pulse Oximetry 96 95 Oxygen Delivery Method Room Air Room Air Sepsis Recent Fever Within 48 Hours Yes Sepsis New/Unexplained Change in Mental Status No Sepsis Action Taken by Nursing No Action Required 05/25/22 13:00 05/25/22 12:31 05/25/22 13:13 Temperature Temperature Source Pulse Rate Pulse Rate [Finger] 80 Pulse Rate from SpO2 Sensor Respiratory Rate 20 Respiratory Effort / Characteristics Moaning Respiratory Depth Normal Blood Pressure 153/75 H 183/128 H Blood Pressure [Right Arm] Blood Pressure Mean 101 146 Blood Pressure Mean [Right Arm] Pulse Oximetry 95 Oxygen Delivery Method Sepsis Recent Fever Within 48 Hours Sepsis New/Unexplained Change in Mental Status Sepsis Action Taken by Nursing 05/25/22 13:20 05/25/22 13:30 05/25/22 13:40 Temperature Temperature Source Pulse Rate 81 75 79 Pulse Rate [Finger] Pulse Rate from SpO2 Sensor 80 Respiratory Rate 12 16 13 Respiratory Effort / Characteristics Respiratory Depth Blood Pressure Blood Pressure [Right Arm] Blood Pressure Mean Blood Pressure Mean [Right Arm] Pulse Oximetry 96 Oxygen Delivery Method Sepsis Recent Fever Within 48 Hours Sepsis New/Unexplained Change in Mental Status Sepsis Action Taken by Nursing 05/25/22 13:41 05/25/22 13:41 05/25/22 13:50 Temperature Temperature Source Pulse Rate 79 75 Pulse Rate [Finger] Pulse Rate from SpO2 Sensor 79 74 Respiratory Rate 14 13 Respiratory Effort / Characteristics Respiratory Depth Blood Pressure 160/70 H Blood Pressure [Right Arm] Blood Pressure Mean 100 Blood Pressure Mean [Right Arm] Pulse Oximetry 94 93 Oxygen Delivery Method Sepsis Recent Fever Within 48 Hours Sepsis New/Unexplained Change in Mental Status Sepsis Action Taken by Nursing 05/25/22 15:07 05/25/22 15:21 05/25/22 15:30 Temperature Temperature Source Pulse Rate Pulse Rate [Finger] Pulse Rate from SpO2 Sensor 78 74 73 Respiratory Rate Respiratory Effort / Characteristics Respiratory Depth Blood Pressure Blood Pressure [Right Arm] Blood Pressure Mean Blood Pressure Mean [Right Arm] Pulse Oximetry 93 93 91 Oxygen Delivery Method Sepsis Recent Fever Within 48 Hours Sepsis New/Unexplained Change in Mental Status Sepsis Action Taken by Nursing CONSTITUTIONAL: Obese female that does not appear toxic. Patient appears in moderate discomfort. HEENT: No scleral icterus or conjunctival injection/pallor. Mucous membranes are dry. RESPIRATORY: Clear to auscultation bilaterally with no wheezing, crackles, rhonchi or stridor. CARDIOVASCULAR: Regular rate and rhythm with no murmurs, rubs or gallops. GASTROINTESTINAL: Bowel sounds present in all quadrants. Examination had to be performed while the patient was sitting in the chair. Patient has generalized lower abdominal and left lower quadrant abdominal tenderness to palpation. Negative CVA tenderness. No obvious rigidity, guarding or rebound. MUSCULOSKELETAL: Full range of motion of all joints without discomfort. INTEGUMENTARY: No rash or other significant dermatologic conditions noted. HEMATOLOGIC: No ecchymosis or petechiae. PSYCHIATRIC: Positive affect. NEUROLOGIC: No focal neurologic deficits noted. Course Course Patient history and physical exam were performed. Nurses notes were reviewed. Vital signs were reviewed, showing an elevated blood pressure. The patient is not febrile or tachycardic. IV access was established, and labs were drawn. The patient was hydrated with a liter normal saline. Upon further questioning, the patient reports difficulty breathing with stronger analgesics. The patient was therefore administered IV Tylenol. Review of labs shows a mild leukocytosis with left shift and bandemia. CBC shows an elevated random glucose, otherwise was grossly normal. Lipase and urinalysis was also normal. Prior to CT imaging, the patient did request something stronger for pain. It is noted that the patient has a questionable allergy to morphine that causes "trouble breathing". I explained that I really do not have any additional pain medications that can give that would not cause any potential side effect. I did not want to administer IV Toradol until determining exact etiology for her discomfort with CT imaging. The patient did agree to IV morphine, and the patient was administered a minimal dose of morphine 1 mg IVP, along with IV Zofran. This did reduce the patient's pain somewhat before it came back again. CT with IV contrast of the abdomen and pelvis showed evidence for a mild nonspecific colitis with no evidence for diverticulitis, bowel obstruction or abdominal free air. Upon reevaluation, I highly recommended a PCR stool culture given the persistent of symptoms, rectal bleeding and colitis. The patient reports that she would be able to do so, and was eventually able to provide a stool sample. Stool Hemoccult was positive for bright red blood. Biofire stool culture was positive for an enteropathic E. coli. Findings were discussed with our ED pharmacist who indicated that no antibiotic treatment is warranted. I was contacted by the patient's nurse that the patient was not doing well with complaint of worsening pain, vomiting and diaphoresis. The patient did agreed to administration of an additional dose of morphine 1 mg IV and Zofran. This really did not provide any relief of the patient, and had an additional emesis of bilious material. At this point, the case was discussed with Dr. Lane, who recommended discussing the case further with the hospitalist service for possible observation and symptomatic treatment. The case was discussed with the [facility] hospitalist service, who has agreed to evaluate the patient. Please see their dictation for further treatment and final disposition. Administered Medications Discontinued Medications Acetaminophen (Acetaminophen 1000 Mg/100 Ml Iv) 1,000 mg IV ONE ONE Stop: 05/25/22 09:59 Last Admin: 05/25/22 10:05 Dose: 1,000 mg Documented By: JOEY Sodium Chloride (Nss 1000ml) 1,000 mls @ 999 mls/hr IV .Q1H1M STA Stop: 05/25/22 10:54 Last Infusion: 05/25/22 11:49 Dose: 0 mls/hr Documented By: Admin: 05/25/22 10:06 Dose: 999 mls/hr Documented By: JOEY Ioversol (Optiray 320 100ml) 94 ml IV ONCE ONE Stop: 05/25/22 11:47 Last Admin: 05/25/22 11:47 Dose: 94 ml Documented By: EFREN Morphine Sulfate (Morphine Sulfate 2 Mg/Ml Carp) 1 mg IV NOW STA Stop: 05/25/22 13:25 Last Admin: 05/25/22 13:39 Dose: 1 mg Documented By: ERIKA Morphine Sulfate (Morphine Sulfate 2 Mg/Ml Carp) 1 mg IV NOW STA Stop: 05/25/22 14:16 Last Admin: 05/25/22 14:54 Dose: 1 mg Documented By: ERIKA Ondansetron HCl (Ondansetron Inj 2 Mg/Ml 2 Ml Vial) 4 mg IV NOW STA Stop: 05/25/22 09:55 Last Admin: 05/25/22 10:05 Dose: 4 mg Documented By: JOEY Ondansetron HCl (Ondansetron Inj 2 Mg/Ml 2 Ml Vial) 4 mg IV NOW STA Stop: 05/25/22 13:25 Last Admin: 05/25/22 13:39 Dose: 4 mg Documented By: EIRKA Medical Decision Making Medical Records Attestation: I reviewed the patient's medical records. Home Medications Current Medication List: was personally reviewed by me Laboratory Data Attestation: I reviewed the patient's lab results. Result diagrams: 05/25/22 09:53 05/25/22 09:53 Lab Results 05/25/22 05/25/22 05/25/22 Range/Units 09:44 09:53 09:53 WBC 12.82 H (4.8-10.8) K/ul RBC 4.48 (3.93-5.22) M/uL Hgb 13.1 (12.0-16.0) g/dl Hct 41.2 (34.1-44.9) % MCV 92.0 (80.0-100.0) fL MCH 29.2 (25.0-34.0) pg MCHC 31.8 L (32.0-36.0) g/dL RDW Std Deviation 43.0 (36.4-46.3) fL RDW Coeff of Purnima 12.8 (11.5-14.5) % Plt Count 307 (130-400) K/uL MPV 9.4 (9.4-12.3) fL Immature Gran % (Auto) 0.4 % Neut % (Auto) 86.1 % Lymph % (Auto) 6.8 % [place] % (Auto) 6.4 % Eos % (Auto) 0.1 % Baso % (Auto) 0.2 % Neut # (Auto) 11.05 H (1.4-6.5) K/uL Lymph # (Auto) 0.87 L (1.2-3.4) K/uL [place] # (Auto) 0.82 (0.24-0.82) K/uL Eos # (Auto) 0.01 (0-0.50) K/uL Baso # (Auto) 0.02 (0-0.2) K/uL Immature Gran # (Auto) 0.05 H (0.00-0.02) K/uL Sodium 138 (136-145) mmol/L Potassium 3.8 (3.5-5.1) mmol/L Chloride 103 (98-107) mmol/L Carbon Dioxide 28 (21-32) mmol/L Anion Gap 7 (3-11) BUN 19 (6-23) mg/dl Creatinine 0.84 (0.6-1.2) mg/dl Est Cr Clr Drug Dosing 70.2 ml/min Est GFR ( Amer) 79.9 ml/min Est GFR (Non-Af Amer) 69.0 ml/min BUN/Creatinine Ratio 22.6 H (10-20) Glucose 147 H (70-99(Fasting)) mg/dl Calcium 9.2 (8.5-10.1) mg/dl Magnesium (1.7-2.4) mg/dl Total Bilirubin 0.3 (0.2-1.0) mg/dl AST 13 (13-39) U/L ALT 11 (7-52) U/L Alkaline Phosphatase 86 (34-104) U/L Total Protein 7.1 (6.0-8.3) gm/dl Albumin 4.1 (3.4-5.0) gm/dl Globulin 3.0 (2.5-4.0) gm/dl Albumin/Globulin Ratio 1.4 (0.9-2) Lipase 14 (11-82) U/L Urine Color Yellow Urine Appearance Turbid A (Clear) Urine pH 7.0 (4.5-7.5) Ur Specific [place] 1.020 (1.000-1.030) Urine Protein Negative (Negative) Urine Glucose (UA) Negative (Negative) Urine Ketones Negative (Negative) Urine Blood Negative (Negative) Urine Nitrite Negative (Negative) Urine Bilirubin Negative (Negative) Urine Urobilinogen Negative (Negative) Ur Leukocyte Esterase Negative (Negative) Urine WBC (Auto) 5-10 H (0-5) /hpf Urine RBC (Auto) 0-4 (0-4) /hpf U Hyaline Cast (Auto) 0 (0-5) /lpf U Epithel Cells (Auto) >30 H (0-5) /lpf Urine Bacteria (Auto) 3+ H (Negative) Stl C. cayetanensis PCR (NotDetected) Stool Rotavirus A PCR (NotDetected) Stl Adenov F 40/41 PCR (NotDetected) Stool Astrovirus (PCR) (NotDetected) Stool Campylobacter PCR (NotDetected) Stl C. diff Tox A/B PCR (NotDetected) Stool Cryptosporidium PCR (NotDetected) Stl E.coli Shiga Tox PCR (NotDetected) Stl Enterotoxigenic E PCR (NotDetected) Stool EPEC (PCR) (NotDetected) Stool EAEC (PCR) (NotDetected) Stl E. histolytica PCR (NotDetected) Stool Giardia Lamblia PCR (NotDetected) Stool Salmonella PCR (NotDetected) Stool Sapovirus (PCR) (NotDetected) Stl P. shigelloides PCR (NotDetected) Stl Shigella/EIEC PCR (NotDetected) St Y.enterocolitica PCR (NotDetected) Stool Vibrio (PCR) (NotDetected) Stl Vibrio cholerae PCR (NotDetected) Stl Norovirus GI/GII PCR (NotDetected) SARS-CoV-2, RNA, NAAT (NEGATIVE) 05/25/22 05/25/22 05/25/22 Range/Units 09:53 12:51 15:30 WBC (4.8-10.8) K/ul RBC (3.93-5.22) M/uL Hgb (12.0-16.0) g/dl Hct (34.1-44.9) % MCV (80.0-100.0) fL MCH (25.0-34.0) pg MCHC (32.0-36.0) g/dL RDW Std Deviation (36.4-46.3) fL RDW Coeff of Purnima (11.5-14.5) % Plt Count (130-400) K/uL MPV (9.4-12.3) fL Immature Gran % (Auto) % Neut % (Auto) % Lymph % (Auto) % [place] % (Auto) % Eos % (Auto) % Baso % (Auto) % Neut # (Auto) (1.4-6.5) K/uL Lymph # (Auto) (1.2-3.4) K/uL [place] # (Auto) (0.24-0.82) K/uL Eos # (Auto) (0-0.50) K/uL Baso # (Auto) (0-0.2) K/uL Immature Gran # (Auto) (0.00-0.02) K/uL Sodium (136-145) mmol/L Potassium (3.5-5.1) mmol/L Chloride (98-107) mmol/L Carbon Dioxide (21-32) mmol/L Anion Gap (3-11) BUN (6-23) mg/dl Creatinine (0.6-1.2) mg/dl Est Cr Clr Drug Dosing ml/min Est GFR ( Amer) ml/min Est GFR (Non-Af Amer) ml/min BUN/Creatinine Ratio (10-20) Glucose (70-99(Fasting)) mg/dl Calcium (8.5-10.1) mg/dl Magnesium 2.0 (1.7-2.4) mg/dl Total Bilirubin (0.2-1.0) mg/dl AST (13-39) U/L ALT (7-52) U/L Alkaline Phosphatase (34-104) U/L Total Protein (6.0-8.3) gm/dl Albumin (3.4-5.0) gm/dl Globulin (2.5-4.0) gm/dl Albumin/Globulin Ratio (0.9-2) Lipase (11-82) U/L Urine Color Urine Appearance (Clear) Urine pH (4.5-7.5) Ur Specific [place] (1.000-1.030) Urine Protein (Negative) Urine Glucose (UA) (Negative) Urine Ketones (Negative) Urine Blood (Negative) Urine Nitrite (Negative) Urine Bilirubin (Negative) Urine Urobilinogen (Negative) Ur Leukocyte Esterase (Negative) Urine WBC (Auto) (0-5) /hpf Urine RBC (Auto) (0-4) /hpf U Hyaline Cast (Auto) (0-5) /lpf U Epithel Cells (Auto) (0-5) /lpf Urine Bacteria (Auto) (Negative) Stl C. cayetanensis PCR Not Detected (NotDetected) Stool Rotavirus A PCR Not Detected (NotDetected) Stl Adenov F 40/41 PCR Not Detected (NotDetected) Stool Astrovirus (PCR) Not Detected (NotDetected) Stool Campylobacter PCR Not Detected (NotDetected) Stl C. diff Tox A/B PCR Not Detected (NotDetected) Stool Cryptosporidium PCR Not Detected (NotDetected) Stl E.coli Shiga Tox PCR Not Detected (NotDetected) Stl Enterotoxigenic E PCR Not Detected (NotDetected) Stool EPEC (PCR) DETECTED A* (NotDetected) Stool EAEC (PCR) Not Detected (NotDetected) Stl E. histolytica PCR Not Detected (NotDetected) Stool Giardia Lamblia PCR Not Detected (NotDetected) Stool Salmonella PCR Not Detected (NotDetected) Stool Sapovirus (PCR) Not Detected (NotDetected) Stl P. shigelloides PCR Not Detected (NotDetected) Stl Shigella/EIEC PCR Not Detected (NotDetected) St Y.enterocolitica PCR Not Detected (NotDetected) Stool Vibrio (PCR) Not Detected (NotDetected) Stl Vibrio cholerae PCR Not Detected (NotDetected) Stl Norovirus GI/GII PCR Not Detected (NotDetected) SARS-CoV-2, RNA, NAAT NEGATIVE (NEGATIVE) Imaging Data Attestation: I personally reviewed and interpreted this imaging study as follows: My Impression: My interpretation of a CT with IV contrast of the abdomen and pelvis shows evidence for a left-sided colitis without evidence for diverticulitis, obstruction or free air. Radiologist report was also reviewed. Radiologist's Impression: Abdomen/Pelvis CT 05/25/22 09:54 CT SCAN OF THE ABDOMEN AND PELVIS WITH IV CONTRAST CLINICAL HISTORY: Lower abdominal pain. Hematochezia. COMPARISON STUDY: Abdominal CT dated 03/08/2021. TECHNIQUE: Following the IV administration of 94 cc of Optiray 320, CT scan of the abdomen and pelvis is performed from the lung bases to the proximal femora. Images are reviewed in the axial, sagittal, and coronal planes. IV contrast was administered without complication. A dose lowering technique was utilized adhering to the principles of ALARA. CT DOSE: 1461.00 mGy.cm FINDINGS: Lung bases: The heart is normal in size and without pericardial effusion. There is a small fat-containing Bochdalek hernia at the right lung base. There are scattered calcified granulomas. The lung bases are otherwise clear noting depen dent scarring/atelectasis. A tiny hiatal hernia is noted. Liver: The contrast-enhanced liver is normal in size, contour, and attenuation. There is no intrahepatic biliary ductal dilatation. The hepatic veins and portal veins are patent. Gallbladder: Surgically absent noting clips in the gallbladder fossa. Spleen: Normal in size and attenuation. Pancreas: Unremarkable. Adrenal glands: Unremarkable. Kidneys: The contrast enhanced kidneys are normal in size and without hydronephrosis. The kidneys enhance symmetrically. Abdominal vasculature: The abdominal aorta is normal in course and caliber noting moderate to advanced atherosclerotic calcification. 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 This is similar to previous. Bowel: There is moderate to advanced colonic diverticulosis of the left colon without CT evidence of acute diverticulitis. No bowel obstruction is identified. There is mild infiltration identified around the distal descending colon and the sigmoid suggesting a mild colitis. The appendix is well-visualized and normal. Peritoneum: There is no intraperitoneal free air or abdominal ascites. Lymphadenopathy: None. Pelvic viscera: The bladder is normal as visualized. The uterus is surgically absent. No adnexal lesion is seen. Skeletal structures: The skeletal structures are osteopenic. There is mild lumbosacral spondylosis. No lytic or blastic lesions are seen. IMPRESSION: 1. There is evidence of a mild nonspecific colitis of the left colon. Clinical correlation will be required. 2. Colonic diverticulosis without CT evidence of acute diverticulitis. 3. Additional findings as above. ACT 112: Negative or not required by law. Electronically signed by: Jose Rowell M.D. 05/25/2022 12:00 PM Blood Pressure Blood Pressure Findings: Elevated blood pressure Blood Pressure Disposition: elevated BP felt to be situational MDM Narrative Work-up today shows evidence for a generalized left colitis with a stool culture positive for enteropathic E. coli and. Although this infection does not require antibiotic treatment, the patient has not tolerated her pain and nausea well today in the emergency department, even after several doses of IV analgesics and antiemetics. Because of her intractable pain and nausea, I do feel that observation is warranted. The patient is afebrile. Laboratory studies otherwise are not suggestive of UTI, pancreatitis, cholecystitis or hepatitis. Impression & Plan Bacterial colitis, Intractable lower abdominal pain, Nausea and vomiting Discharge Plan Visit Data Chief Complaint: Abdominal Pain Stated Complaint: DIARRHEA, ABDOMINAL PAIN ED Provider: Ulises Lane ED Midlevel Provider: Ed Tamez Discharge Problem: Bacterial colitis, Intractable lower abdominal pain, Nausea and vomiting Forms Stand Alone Forms: My [facility] [employer] Prescriptions Prescriptions: No Action carbamazepine 400 mg tablet extended release 12 hr 400 mg PO BID 90 Days Qty: 180 1RF topiramate [Topamax] 200 mg tablet 200 mg PO BID 90 Days Qty: 180 1RF ezetimibe 10 mg tablet 10 mg PO HS Qty: 90 1RF cyanocobalamin (vitamin B-12) 1,000 mcg/mL solution 1,000 mcg subcut .COMPLEX Qty: 4 1RF Rx Instructions: 1,000 mcg subcut WEEKLY FOR 4 WEEKS; THEN ONCE A MONTH; lisinopril 40 mg tablet 40 mg PO QPM Qty: 90 1RF Breo Ellipta 100-25 mcg/dose blister with device 1 inh inhalation DAILY Qty: 60 12RF Rx Instructions: needs Breo brand for insurance aspirin 81 mg tablet,delayed release (DR/EC) 81 mg PO QPM Qty: 30 albuterol sulfate 90 mcg/actuation HFA aerosol inhaler 2 puff inhalation Q6H PRN (Reason: Shortness Of Breath Or Wheezing) Qty: 18 3RF pantoprazole [Protonix] 40 mg tablet,delayed release (DR/EC) 40 mg PO DAILY levothyroxine 150 mcg tablet 150 mcg PO DAILY Qty: 90 3RF calcium carbonate-vitamin D3 [Caltrate with Vitamin D3] 600 mg(1,500mg) -800 unit Tablet 1 tab PO BID montelukast [Singulair] 10 mg Tablet 10 mg PO QPM cholecalciferol (vitamin D3) [Vitamin D3] 25 mcg (1,000 unit) Tablet 25 mcg PO BID acetaminophen [Tylenol Extra Strength] 500 mg Tablet 1,000 mg PO Q6H PRN (Reason: Pain) azelastine 137 mcg (0.1 %) aerosol,spray 1 spray INTRANASAL BID PRN (Reason: Nasal Congestion) baclofen 10 mg tablet 10 mg PO BID PRN (Reason: Muscle Pain) Referrals Referrals: Cesar Crenshaw MD [Primary Care Provider] -
[2022-05-25 10:16] LABS: Basophils # (auto) 0.02 K/uL (0-0.2); Basophils % (auto) 0.2 %; Eosinophils # (auto) 0.01 K/uL (0-0.50); Eosinophils % (auto) 0.1 %; Hematocrit (blood only) 41.2 % (34.1-44.9); Hemoglobin 13.1 g/dl (12.0-16.0); Immature Granulocytes # (auto) 0.05 K/uL (0.00-0.02); Immature Granulocytes % (auto) 0.4 %; Lymphocytes # (auto) 0.87 K/uL (1.2-3.4); Lymphocytes % (auto) 6.8 %; Mean Corpuscular Hemoglobin 29.2 pg (25.0-34.0); Mean Corpuscular Hgb Conc 31.8 g/dL (32.0-36.0); Mean Platelet Volume 9.4 fL (9.4-12.3); Monocytes # (auto) 0.82 K/uL (0.24-0.82); Monocytes % (auto) 6.4 %; Neutrophils # (auto) 11.05 K/uL (1.4-6.5); Neutrophils % (auto) 86.1 %; Platelet Count 307 K/uL (130-400); RDW Coefficient of Variation 12.8 % (11.5-14.5); Red Blood Count 4.48 M/uL (3.93-5.22); White Blood Count 12.82 K/ul (4.8-10.8)
[2022-05-25 10:19] LABS: Appearance Urine Turbid (Clear); Bilirubin Urine Negative (Negative); Blood Urine Negative (Negative); Color Urine Yellow; Epithelial Cell Urine Auto >30 /lpf (0-5); Glucose Urine UA Negative (Negative); Ketones Urine Negative (Negative); Leukocyte Esterase Urine Negative (Negative); Nitrite Urine Negative (Negative); Protein Urine Negative (Negative); RBC Urine Automated 0-4 /hpf (0-4); Urobilinogen Urine Negative (Negative)
[2022-05-25 10:38] LABS: Bacteria Urine Automated 3+ (Negative); Cast Urine Automated 0 /lpf (0-5)
[2022-05-25 10:43] LABS: Albumin Globulin Ratio 1.4 (0.9-2); Albumin Level 4.1 gm/dl (3.4-5.0); BUN Creatinine Ratio 22.6 (10-20); Bilirubin,Total 0.3 mg/dl (0.2-1.0); Calcium 9.2 mg/dl (8.5-10.1); Creatinine Clr Calc Pharmacy 70.2 ml/min; Est GFR (African American) 79.9 ml/min; Potassium 3.8 mmol/L (3.5-5.1); Total Protein 7.1 gm/dl (6.0-8.3)
[2022-05-25] MEDS ORDERED: OPTIRAY 320 100ml IV ONE (11:46)
--- NOTE | 2022-05-25 12:02 | CT Scan Report ---
CT SCAN OF THE ABDOMEN AND PELVIS WITH IV CONTRAST CLINICAL HISTORY: Lower abdominal pain. Hematochezia. COMPARISON STUDY: Abdominal CT dated 03/08/2021. TECHNIQUE: Following the IV administration of 94 cc of Optiray 320, CT scan of the abdomen and pelvi s is performed from the lung bases to the proximal femora. Images are reviewed in the axial, sagittal , and coronal planes. IV contrast was administered without complication. A dose lowering technique wa s utilized adhering to the principles of ALARA. CT DOSE: 1461.00 mGy.cm FINDINGS: Lung bases: The heart is normal in size and without pericardial effusion. There is a small fat-contai debbie Bochdalek hernia at the right lung base. There are scattered calcified granulomas. The lung base s are otherwise clear noting dependent scarring/atelectasis. A tiny hiatal hernia is noted. Liver: The contrast-enhanced liver is normal in size, contour, and attenuation. There is no intrahepa tic biliary ductal dilatation. The hepatic veins and portal veins are patent. Gallbladder: Surgically absent noting clips in the gallbladder fossa. Spleen: Normal in size and attenuation. Pancreas: Unremarkable. Adrenal glands: Unremarkable. Kidneys: The contrast enhanced kidneys are normal in size and without hydronephrosis. The kidneys enh ance symmetrically. Abdominal vasculature: The abdominal aorta is normal in course and caliber noting moderate to advance d atherosclerotic calcification. 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 This is similar to previous. Bowel: There is moderate to advanced colonic diverticulosis of the left colon without CT evidence of acute diverticulitis. No bowel obstruction is identified. There is mild infiltration identified aroun d the distal descending colon and the sigmoid suggesting a mild colitis. The appendix is well-visual ized and normal. Peritoneum: There is no intraperitoneal free air or abdominal ascites. Lymphadenopathy: None. Pelvic viscera: The bladder is normal as visualized. The uterus is surgically absent. No adnexal lesi on is seen. Skeletal structures: The skeletal structures are osteopenic. There is mild lumbosacral spondylosis. N o lytic or blastic lesions are seen. IMPRESSION: 1. There is evidence of a mild nonspecific colitis of the left colon. Clinical correlation will be re quired. 2. Colonic diverticulosis without CT evidence of acute diverticulitis. 3. Additional findings as above. ACT 112: Negative or not required by law. Electronically signed by: Jose Rowell M.D. 05/25/2022 12:00 PM
[2022-05-25] MEDS ORDERED: MoRPHine SULFATE 2 MG/ML CARP IV STA ×2 (13:24→14:15)
[2022-05-25 14:28] LABS: Adenovirus F 40/41 PCR Not Detected (NotDetected); Astrovirus PCR Not Detected (NotDetected); Campylobacter PCR Not Detected (NotDetected); Clostridium diff Toxin A/B PCR Not Detected (NotDetected); Cryptosporidium PCR Not Detected (NotDetected); Cyclospora cayetanensis PCR Not Detected (NotDetected); Entamoeba histolytica PCR Not Detected (NotDetected); Enteroaggregative E.coli(EAEC) Not Detected (NotDetected); Enterotoxigenic E.coli (ETEC) Not Detected (NotDetected); Giardia lamblia PCR Not Detected (NotDetected); Norovirus GI/GII PCR Not Detected (NotDetected); Plesiomonas shigelloides PCR Not Detected (NotDetected); Rotavirus A PCR Not Detected (NotDetected); Salmonella PCR Not Detected (NotDetected); Sapovirus PCR Not Detected (NotDetected); Shiga-like Toxin E.coli (STEC) Not Detected (NotDetected); Shigella/Enteroinvasive E.coli Not Detected (NotDetected); Vibrio cholerae PCR Not Detected (NotDetected); Vibrio species PCR Not Detected (NotDetected); Yersinia enterocolitica PCR Not Detected (NotDetected)
[2022-05-25 14:39] LABS: Enteropathogenic E.coli (EPEC) DETECTED (NotDetected)
--- NOTE | 2022-05-25 15:47 | History & Physical Report ---
Date of Service May 25, 2022 Assessment & Plan (1) E. coli colitis: Plan: Given frequency and severity of pain and blood in stool will give azithromycin 1g PO ONCE Otherwise conservative therapy consisting of LR @ 125 ml/hr; anti-emetics with ondansetron 1st line and Phenergan 2nd line; pain medication with acetaminophen 1st line, Toradol 2nd line UA grossly positive for no urinary symptoms over than suprapubic pain - follow up urine culture (2) Trigeminal neuralgia: Plan: Continue carbamazepine and Topamax Baclofen PRN (3) Asthma: Plan: Continue Breo Ellipta (4) Hypothyroid: Plan: Continue levothyroxine (5) GERD (gastroesophageal reflux disease): Plan: Continue pantoprazole Plan VTE Prophylaxis - low risk as mobile and likely short duration of illness, chemical prophylaxis deferred Diet - clear liquids, advance as tolerated Disposition - observation status to med/surg Admission and Anticipated Discharge Date Admission Date: May 25, 2022 History of Present Illness Chief Complaint: Diarrhea, nausea and vomiting Primary Care Provider: Cesar Crenshaw MD Anita Box is a 72 year old female who presents to the ER with severe abdominal pain, nausea and diarrhea since 4am today. Reportedly she had a positive COVID test at the beginning of May. Having a bowel movement every 15 minutes. become more fluid. Passing bright red blood in stool. Stool PCR positive for enteropathogenic E. coli and non-specific colitis seen on CT. However despite conservative measures in the emergency room with pain medication and anti- emetics she is still vomiting, and unable to keep up with her oral intake therefore she was referred to medicine for admission ongoing management of this. Allergies Allergy/AdvReac Type Severity Reaction Status Date / Time nitrous oxide Allergy Severe laughing Verified 05/25/22 16:27 gas = couldn't breath NSAIDS (Non-Steroidal Allergy Severe RAPID HR, Verified 05/25/22 16:27 Anti-Inflamma RESP DISTRESS etodolac Allergy Unknown RAPID Verified 05/25/22 16:27 HEARTBEAT, RESPIRATORY DISTRESS naproxen Allergy Unknown RAPID Verified 05/25/22 16:27 HEART BEATS, RESPIRATORY DISTRESS morphine Allergy trouble Verified 05/25/22 16:27 breathing ibandronate sodium AdvReac Severe SEVERE Verified 05/25/22 16:27 MUSCLE AND BONE PAIN Ditropan Allergy Unknown Unknown Uncoded 05/25/22 16:27 hydroCHLOROthiazide TABS Allergy Unknown Unknown Uncoded 05/25/22 16:27 Lodine TABS Allergy Unknown Unknown Uncoded 05/25/22 16:27 Septra TABS Allergy Unknown Unknown Uncoded 05/25/22 16:27 Home Medications Medication Instructions Recorded Confirmed Type montelukast 10 mg tablet 10 mg PO QPM 10/22/18 05/25/22 History (Singulair) calcium carbonate 600 mg-vitamin 1 tab PO BID 03/17/19 05/25/22 History D3 20 mcg (800 unit) tablet (Caltrate with Vitamin D3) aspirin 81 mg tablet,delayed 81 mg PO QPM #30 tabs 08/05/19 05/25/22 History release acetaminophen 500 mg tablet 1,000 mg PO Q6H PRN Pain 05/22/21 05/25/22 History (Tylenol Extra Strength) cholecalciferol (vitamin D3) 25 25 mcg PO BID 05/22/21 05/25/22 History mcg (1,000 unit) tablet (Vitamin D3) levothyroxine 150 mcg tablet 150 mcg PO DAILY #90 tabs 11/07/21 05/25/22 Rx carbamazepine 400 mg 400 mg PO BID 90 days #180 tabs 02/12/22 05/25/22 Rx tablet,extended release,12 hr ezetimibe 10 mg tablet 10 mg PO HS #90 tabs 02/12/22 05/25/22 Rx topiramate 200 mg tablet (Topamax) 200 mg PO BID 90 days #180 tabs 02/12/22 05/25/22 Rx pantoprazole 40 mg tablet,delayed 40 mg PO DAILY 02/26/22 05/25/22 History release (Protonix) cyanocobalamin (vitamin B-12) 1,000 mcg subcut .COMPLEX #4 mL 02/28/22 05/25/22 Rx 1,000 mcg/mL injection solution lisinopril 40 mg tablet 40 mg PO QPM #90 tabs 03/05/22 05/25/22 Rx Breo Ellipta 100 mcg-25 mcg/dose 1 inh inhalation DAILY #60 ea 04/19/22 05/25/22 Rx powder for inhalation (fluticasone furoate-vilanterol) albuterol sulfate 90 mcg/actuation 2 puff inhalation Q6H PRN 04/19/22 05/25/22 Rx aerosol inhaler Shortness Of Breath Or Wheezing #18 grams azelastine 137 mcg (0.1 %) nasal 1 spray intranasal BID PRN Nasal 05/25/22 05/25/22 History spray aerosol Congestion baclofen 10 mg tablet 10 mg PO BID PRN Muscle Pain 05/25/22 05/25/22 History Past Med/Surg History Medical History Acid reflux Anxiety Chronic gastroesophageal reflux disease Diverticulitis Family history of reaction to anesthesia SISTER - N/V GERD (gastroesophageal reflux disease) High cholesterol HTN (hypertension) Hypothyroid Osteoporosis Sleep apnea CPAP Trigeminal neuralgia Urinary incontinence & FREQUENCY...HAS PROLAPSED BLADDER Wheezing on expiration Surgical History H/O: hysterectomy History of section History of cholecystectomy History of colonoscopy History of endoscopy History of hernia surgery INCISIONAL History of surgery GAMMA KNIFE, FACE X 2 History of total right knee replacement 2011 [facility] History of umbilical hernia repair Status post left knee replacement Family History Mother History of COPD Emphysema lung Father History of heart attack Myocardial infarction Sister COPD (chronic obstructive pulmonary disease) two sisters have COPD Other History of heart disease History of high blood pressure Denies family history of Ovarian cancer Prostate cancer Breast cancer Colorectal cancer Social History Smoking Status: Never smoker Second Hand Exposure: No; Hx Alcohol Use: No Hx Substance Use: No Preferred Language: Marshallese Communication Ability: Effective Hearing Ability: Normal 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 Beliefs That Will Affect Care: None marital status: Current Living Situation: Spouse Current Living Situation Comment: spouse and adult daughter current occupational status: retired How many Children do You have: 3 Feels Safe at Home: Yes Safety Concerns: Feels Safe At This Time Childhood Exposure to Second-Hand Smoke: Yes Seatbelt Use: always Sunscreen Use: Yes Assistive Devices: CPAP and Glasses Review of Systems Review of Systems: All systems reviewed & are unremarkable except as noted in HPI & below Physical Exam Constitutional: WD/WN, vitals as above Eyes: + anicteric sclerae; normal pupil size ENMT: Mouth: + dry oral mucous membranes Neck: trachea midline, no thyromegaly Cardiovascular: RRR, no murmur, no edema Gastrointestinal (Abdomen): Inspection/Auscultation: + hypoactive bowel sounds Percussion/Palpation: + abdomen tender (suprapubic), + guarding and abdomen soft; abdomen not rigid Musculoskeletal: no cyanosis or clubbing, extremities motor strength 5/5 Skin: no rashes, warm and dry Neurologic: moves all extremities and awake; not confused Psychiatric: A+Ox3, euthymic affect Genitourinary: no CVA tenderness Results & Data Results & Data ([facility]) Vital Signs (Past 12 Hours) Vital Signs Temp Pulse Pulse Resp BP BP Pulse Ox 05/25/22 15:30 91 05/25/22 15:21 93 05/25/22 15:07 93 05/25/22 13:50 75 13 93 05/25/22 13:41 160/70 H 05/25/22 13:41 79 14 94 05/25/22 13:40 79 13 96 05/25/22 13:30 75 16 05/25/22 13:20 81 12 05/25/22 13:13 183/128 H 05/25/22 12:31 153/75 H 05/25/22 13:00 80 20 95 05/25/22 12:18 165/72 H 05/25/22 11:04 14 150/70 H 95 05/25/22 09:31 36.4 C L 83 18 187/83 H 96 O2 Del Method 05/25/22 15:30 05/25/22 15:21 05/25/22 15:07 05/25/22 13:50 05/25/22 13:41 05/25/22 13:41 05/25/22 13:40 05/25/22 13:30 05/25/22 13:20 05/25/22 13:13 05/25/22 12:31 05/25/22 13:00 05/25/22 12:18 05/25/22 11:04 Room Air 05/25/22 09:31 Room Air Laboratory Results Abnormal lab results 05/25/22 05/25/22 05/25/22 Range/Units 09:44 09:53 09:53 WBC 12.82 H (4.8-10.8) K/ul Hgb (12.0-16.0) g/dl MCHC 31.8 L (32.0-36.0) g/dL MPV (9.4-12.3) fL Neut # (Auto) 11.05 H (1.4-6.5) K/uL Lymph # (Auto) 0.87 L (1.2-3.4) K/uL Comal # (Auto) (0.24-0.82) K/uL Immature Gran # (Auto) 0.05 H (0.00-0.02) K/uL Sodium (136-145) mmol/L BUN/Creatinine Ratio 22.6 H (10-20) Glucose 147 H (70-99(Fasting)) mg/dl Calcium (8.5-10.1) mg/dl Urine Appearance Turbid A (Clear) Urine WBC (Auto) 5-10 H (0-5) /hpf U Epithel Cells (Auto) >30 H (0-5) /lpf Urine Bacteria (Auto) 3+ H (Negative) Stool EPEC (PCR) (NotDetected) 05/25/22 Range/Units 12:51 WBC (4.8-10.8) K/ul Hgb (12.0-16.0) g/dl MCHC (32.0-36.0) g/dL MPV (9.4-12.3) fL Neut # (Auto) (1.4-6.5) K/uL Lymph # (Auto) (1.2-3.4) K/uL Comal # (Auto) (0.24-0.82) K/uL Immature Gran # (Auto) (0.00-0.02) K/uL Sodium (136-145) mmol/L BUN/Creatinine Ratio (10-20) Glucose (70-99(Fasting)) mg/dl Calcium (8.5-10.1) mg/dl Urine Appearance (Clear) Urine WBC (Auto) (0-5) /hpf U Epithel Cells (Auto) (0-5) /lpf Urine Bacteria (Auto) (Negative) Stool EPEC (PCR) DETECTED A* (NotDetected) Diagnostic Findings CT SCAN OF THE ABDOMEN AND PELVIS WITH IV CONTRAST CLINICAL HISTORY: Lower abdominal pain. Hematochezia. COMPARISON STUDY: Abdominal CT dated 03/08/2021. TECHNIQUE: Following the IV administration of 94 cc of Optiray 320, CT scan of the abdomen and pelvis is performed from the lung bases to the proximal femora. Images are reviewed in the axial, sagittal, and coronal planes. IV contrast was administered without complication. A dose lowering technique was utilized adhering to the principles of ALARA. CT DOSE: 1461.00 mGy.cm FINDINGS: Lung bases: The heart is normal in size and without pericardial effusion. There is a small fat-containing Bochdalek hernia at the right lung base. There are scattered calcified granulomas. The lung bases are otherwise clear noting dependent scarring/atelectasis. A tiny hiatal hernia is noted. Liver: The contrast-enhanced liver is normal in size, contour, and attenuation. There is no intrahepatic biliary ductal dilatation. The hepatic veins and portal veins are patent. Gallbladder: Surgically absent noting clips in the gallbladder fossa. Spleen: Normal in size and attenuation. Pancreas: Unremarkable. Adrenal glands: Unremarkable. Kidneys: The contrast enhanced kidneys are normal in size and without hydronephrosis. The kidneys enhance symmetrically. Abdominal vasculature: The abdominal aorta is normal in course and caliber noting moderate to advanced atherosclerotic calcification. 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 This is similar to previous. Bowel: There is moderate to advanced colonic diverticulosis of the left colon without CT evidence of acute diverticulitis. No bowel obstruction is identified. There is mild infiltration identified around the distal descending colon and the sigmoid suggesting a mild colitis. The appendix is well-visualized and normal. Peritoneum: There is no intraperitoneal free air or abdominal ascites. Lymphadenopathy: None. Pelvic viscera: The bladder is normal as visualized. The uterus is surgically absent. No adnexal lesion is seen. Skeletal structures: The skeletal structures are osteopenic. There is mild lumbosacral spondylosis. No lytic or blastic lesions are seen. IMPRESSION: 1. There is evidence of a mild nonspecific colitis of the left colon. Clinical correlation will be required. 2. Colonic diverticulosis without CT evidence of acute diverticulitis. 3. Additional findings as above. Medications Administered ER Medications Given: NSS 1L bolus Ondansetron 4mg IV x2 Acetaminophen 1000mg IV Morphine 1mg IV x2 Code Status & VTE Plan Code Status Full VTE Prophylaxis Plan VTE Prophylaxis will be ordered: No Reason for no VTE drug order: Treatment not indicated Reason for no VTE mechanical prophylaxis: Treatment not indicated PG Care Time/CCT Total # of Minutes Spent Total Time Spent with Patient: Total time spent is greater than 50% in coordination of care (as documented) at patient's floor/unit and/or counseling patient: Coding Level of Care Code INT OBSERVATION CARE 50M LVL 2 Diagnoses E. coli colitis A04.4 Trigeminal neuralgia G50.0 Asthma J45.909 Hypothyroid E03.9 GERD (gastroesophageal reflux disease) K21.9
[2022-05-25] MEDS ORDERED: PROMETHAZINE HCL 12.5 MG in SODIUM CHLORIDE 0.9% 50 ML IV PRN (18:10)
[2022-05-25] MEDS ORDERED: ALBUTEROL HFA 8 GM INHALER INH PRN (18:10)
[2022-05-25] MEDS ORDERED: BACLOFEN 10 MG TAB PO PRN (18:10)
[2022-05-25] MEDS ORDERED: AZELASTINE HCL 0.1% NASAL 200 SPRAYS/27,400 MCG BTL NAE PRN (18:10)
[2022-05-25] MEDS ORDERED: AZITHROMYCIN 250 MG TAB PO ONE (18:10)
[2022-05-25] MEDS: LACTATED RINGER'S 1,000 ML IV SCH (18:49)
[2022-05-25] MEDS: ASPIRIN 81 MG ECTAB PO SCH (21:57)
[2022-05-25] MEDS: CALCIUM 600MG + VIT D 400 IU TAB PO SCH (21:57)
[2022-05-25] MEDS: EZETIMIBE 10 MG TABLET PO SCH (21:58)
[2022-05-25] MEDS: TOPIRAMATE 100 MG TAB PO SCH (21:58)
[2022-05-25] MEDS: MONTELUKAST SODIUM 10 MG TABLET PO SCH (21:58)
[2022-05-25] MEDS: CHOLECALCIFEROL 1,000 UNITS 25 MCG TAB PO SCH (21:58)
[2022-05-25] MEDS: ACETAMINOPHEN 325 MG TAB PO PRN (22:06)
[2022-05-25] MEDS: ONDANSETRON INJ 2 MG/ML 2 ML VIAL IV PRN (22:07)
[2022-05-26] MEDS: LACTATED RINGER'S 1,000 ML IV SCH ×3 (03:05→18:30)
[2022-05-26] MEDS: LEVOTHYROXINE SODIUM 150 MCG TABLET PO SCH (05:50)
[2022-05-26 06:41] LABS: Basophils # (auto) 0.03 K/uL (0-0.2); Basophils % (auto) 0.2 %; Eosinophils # (auto) 0.01 K/uL (0-0.50); Eosinophils % (auto) 0.1 %; Hemoglobin 11.9 g/dl (12.0-16.0); Immature Granulocytes # (auto) 0.07 K/uL (0.00-0.02); Immature Granulocytes % (auto) 0.5 %; Lymphocytes # (auto) 1.04 K/uL (1.2-3.4); Lymphocytes % (auto) 6.8 %; Mean Corpuscular Hemoglobin 29.7 pg (25.0-34.0); Mean Corpuscular Hgb Conc 32.2 g/dL (32.0-36.0); Mean Corpuscular Volume 92.3 fL (80.0-100.0); Mean Platelet Volume 8.8 fL (9.4-12.3); Monocytes % (auto) 12.4 %; Neutrophils # (auto) 12.31 K/uL (1.4-6.5); Platelet Count 240 K/uL (130-400); RDW Coefficient of Variation 12.8 % (11.5-14.5); RDW Standard Deviation 42.8 fL (36.4-46.3); Red Blood Count 4.01 M/uL (3.93-5.22); White Blood Count 15.36 K/ul (4.8-10.8)
[2022-05-26 07:07] LABS: BUN Creatinine Ratio 18.1 (10-20); Creatinine Clr Calc Pharmacy 81.7 ml/min; Est GFR (African American) 96.3 ml/min; Est GFR (Non-African American) 83.1 ml/min; Potassium 3.7 mmol/L (3.5-5.1)
--- NOTE | 2022-05-26 07:51 | Hospitalist Progress Note ---
Date of Service May 26, 2022 Assessment & Plan (1) E. coli colitis: Plan: 72 year old female PMH diverticulosis anxiety DONNY HTN HLD morbid obesity GERD hypothyroidism who presents to the ER with severe abdominal pain, nausea and diarrhea ongoing 1 day 1) E. coli colitis: Given frequency and severity of pain and blood in stool will give azithromycin 1g PO ONCE Otherwise conservative therapy consisting of LR @ 125 ml/hr; anti-emetics with ondansetron 1st line and Phenergan 2nd line; pain medication with acetaminophen 1st line, Toradol 2nd line UA grossly positive for no urinary symptoms over than suprapubic pain - follow up urine culture continue IVF and clear liquid diet for now (2) Trigeminal neuralgia: Continue carbamazepine and Topamax Baclofen PRN (3) Asthma: Continue Breo Ellipta (4) Hypothyroid: Continue levothyroxine (5) GERD (gastroesophageal reflux disease): Continue pantoprazole Given simethecone for gas, available PRN ()DONNY -CPAP hs ()HTN -wnl in hospital, hold lisinopril for now Plan VTE Prophylaxis - low risk as mobile and likely short duration of illness, chemical prophylaxis deferred Diet - clear liquids, advance as tolerated Disposition - observation status to med/surg (2) Anxiety disorder: (3) Anxiety: (4) HTN (hypertension): (5) Hyperlipidemia: (6) Hypothyroid: (7) DONNY (obstructive sleep apnea): (8) Urinary incontinence: Admission and Anticipated Discharge Date Admission Date: May 25, 2022 Supervising Physician Co-Signing Physician Notes I personally examined the patient and verified all gusman points of history and exam, discussed case, and agree with decision making with Dr Gold. Still has abdominal discomfort, still has diarrheabut only 3 times todaymuch less than before. And less bloody. Vitals noted, in general she is awake and alert fatigued but no distress. HEENT normocephalic atraumatic mucous membranes moist. Breathing unlabored no accessory muscle use good effort. Skin shows no rashes no pallor or icterus. EPEC/infectious diarrheagiven Zithromax. Symptoms improving. Continue supportive care. Once able to tolerate well enough p.o., likely home soon. Leukocytosis likely reactive. Subjective Patient seen at bedside, calm comfortable cooperative. She states her abd pain nausea vomitting started yesterday morning had diarrhea, later in hospital developed bloody diarrhea that covered the entire toilet. She states she has never had bloody BM before, has hx hemmeroids but this is different. Patient aware she has diverticuli. States the nausea medications have helped. She denies any fever dizziness SOB CP, states her abd pain is slightly improved at this time, feels like the pain has shifted lower, does feel her abd is slightly distended. Review of Systems Review of Systems: Positive diarrhea nausea vomitting Negative fever chills Negative headache dizziness Negative chest pain palpitations SOB Negative constipation Negative numbness tingling rash swelling Physical Exam Constitutional: WD/WN, vitals as above Eyes: PERRL, conjunctivae normal, anicteric sclerae ENMT: external ear and nose normal, oropharynx normal Neck: trachea midline, no thyromegaly Respiratory: normal respiratory effort, lungs clear to auscultation Cardiovascular: RRR, no murmur, no edema Chest (Breasts): Chest: normal inspection of chest Gastrointestinal (Abdomen): Inspection/Auscultation: + abdomen distended Percussion/Palpation: + abdomen tender (lower quadrants) and abdomen soft Skin: no rashes, warm and dry Results & Data Results & Data ([facility]) Vital Signs (Past 12 Hours) Vital Signs Temp Pulse Resp BP Pulse Ox O2 Del Method 05/25/22 20:00 Room Air 05/25/22 22:24 36.9 C 81 18 131/72 93 Room Air Diagnostic Findings Laboratory Results WBC 15.36 K/ul (4.8-10.8) H 05/26/22 06:26 RBC 4.01 M/uL (3.93-5.22) 05/26/22 06:26 Hgb 11.9 g/dl (12.0-16.0) L 05/26/22 06:26 Hct 37.0 % (34.1-44.9) 05/26/22 06:26 MCV 92.3 fL (80.0-100.0) 05/26/22 06:26 MCH 29.7 pg (25.0-34.0) 05/26/22 06:26 MCHC 32.2 g/dL (32.0-36.0) 05/26/22 06:26 RDW Std Deviation 42.8 fL (36.4-46.3) 05/26/22 06:26 RDW Coeff of Purnima 12.8 % (11.5-14.5) 05/26/22 06:26 Plt Count 240 K/uL (130-400) 05/26/22 06:26 MPV 8.8 fL (9.4-12.3) L 05/26/22 06:26 Immature Gran % (Auto) 0.5 % 05/26/22 06:26 Neut % (Auto) 80.0 % 05/26/22 06:26 Lymph % (Auto) 6.8 % 05/26/22 06:26 [place] % (Auto) 12.4 % 05/26/22 06:26 Eos % (Auto) 0.1 % 05/26/22 06:26 Baso % (Auto) 0.2 % 05/26/22 06:26 Neut # (Auto) 12.31 K/uL (1.4-6.5) H 05/26/22 06:26 Lymph # (Auto) 1.04 K/uL (1.2-3.4) L 05/26/22 06:26 [place] # (Auto) 1.90 K/uL (0.24-0.82) H 05/26/22 06:26 Eos # (Auto) 0.01 K/uL (0-0.50) 05/26/22 06:26 Baso # (Auto) 0.03 K/uL (0-0.2) 05/26/22 06:26 Immature Gran # (Auto) 0.07 K/uL (0.00-0.02) H 05/26/22 06:26 Sodium 135 mmol/L (136-145) L 05/26/22 06:26 Potassium 3.7 mmol/L (3.5-5.1) 05/26/22 06:26 Chloride 105 mmol/L (98-107) 05/26/22 06:26 Carbon Dioxide 26 mmol/L (21-32) 05/26/22 06:26 Anion Gap 4 (3-11) 05/26/22 06:26 BUN 13 mg/dl (6-23) 05/26/22 06:26 Creatinine 0.72 mg/dl (0.6-1.2) 05/26/22 06:26 Est Cr Clr Drug Dosing 81.7 ml/min 05/26/22 06:26 Est GFR ( Amer) 96.3 ml/min 05/26/22 06:26 Est GFR (Non-Af Amer) 83.1 ml/min 05/26/22 06:26 BUN/Creatinine Ratio 18.1 (10-20) 05/26/22 06:26 Glucose 114 mg/dl (70-99(Fasting)) H 05/26/22 06:26 Calcium 8.0 mg/dl (8.5-10.1) L 05/26/22 06:26 Magnesium 2.0 mg/dl (1.7-2.4) 05/25/22 09:53 Total Bilirubin 0.3 mg/dl (0.2-1.0) 05/25/22 09:53 AST 13 U/L (13-39) 05/25/22 09:53 ALT 11 U/L (7-52) 05/25/22 09:53 Alkaline Phosphatase 86 U/L (34-104) 05/25/22 09:53 Total Protein 7.1 gm/dl (6.0-8.3) 05/25/22 09:53 Albumin 4.1 gm/dl (3.4-5.0) 05/25/22 09:53 Globulin 3.0 gm/dl (2.5-4.0) 05/25/22 09:53 Albumin/Globulin Ratio 1.4 (0.9-2) 05/25/22 09:53 Lipase 14 U/L (11-82) 05/25/22 09:53 Urine Color Yellow 05/25/22 09:44 Urine Appearance Turbid (Clear) A 05/25/22 09:44 Urine pH 7.0 (4.5-7.5) 05/25/22 09:44 Ur Specific [place] 1.020 (1.000-1.030) 05/25/22 09:44 Urine Protein Negative (Negative) 05/25/22 09:44 Urine Glucose (UA) Negative (Negative) 05/25/22 09:44 Urine Ketones Negative (Negative) 05/25/22 09:44 Urine Blood Negative (Negative) 05/25/22 09:44 Urine Nitrite Negative (Negative) 05/25/22 09:44 Urine Bilirubin Negative (Negative) 05/25/22 09:44 Urine Urobilinogen Negative (Negative) 05/25/22 09:44 Ur Leukocyte Esterase Negative (Negative) 05/25/22 09:44 Urine WBC (Auto) 5-10 /hpf (0-5) H 05/25/22 09:44 Urine RBC (Auto) 0-4 /hpf (0-4) 05/25/22 09:44 U Hyaline Cast (Auto) 0 /lpf (0-5) 05/25/22 09:44 U Epithel Cells (Auto) >30 /lpf (0-5) H 05/25/22 09:44 Urine Bacteria (Auto) 3+ (Negative) H 05/25/22 09:44 Stl C. cayetanensis PCR Not Detected (NotDetected) 05/25/22 12:51 Stool Rotavirus A PCR Not Detected (NotDetected) 05/25/22 12:51 Stl Adenov F 40/41 PCR Not Detected (NotDetected) 05/25/22 12:51 Stool Astrovirus (PCR) Not Detected (NotDetected) 05/25/22 12:51 Stool Campylobacter PCR Not Detected (NotDetected) 05/25/22 12:51 Stl C. diff Tox A/B PCR Not Detected (NotDetected) 05/25/22 12:51 Stool Cryptosporidium PCR Not Detected (NotDetected) 05/25/22 12:51 Stl E.coli Shiga Tox PCR Not Detected (NotDetected) 05/25/22 12:51 Stl Enterotoxigenic E PCR Not Detected (NotDetected) 05/25/22 12:51 Stool EPEC (PCR) DETECTED (NotDetected) A* 05/25/22 12:51 Stool EAEC (PCR) Not Detected (NotDetected) 05/25/22 12:51 Stl E. histolytica PCR Not Detected (NotDetected) 05/25/22 12:51 Stool Giardia Lamblia PCR Not Detected (NotDetected) 05/25/22 12:51 Stool Salmonella PCR Not Detected (NotDetected) 05/25/22 12:51 Stool Sapovirus (PCR) Not Detected (NotDetected) 05/25/22 12:51 Stl P. shigelloides PCR Not Detected (NotDetected) 05/25/22 12:51 Stl Shigella/EIEC PCR Not Detected (NotDetected) 05/25/22 12:51 St Y.enterocolitica PCR Not Detected (NotDetected) 05/25/22 12:51 Stool Vibrio (PCR) Not Detected (NotDetected) 05/25/22 12:51 Stl Vibrio cholerae PCR Not Detected (NotDetected) 05/25/22 12:51 Stl Norovirus GI/GII PCR Not Detected (NotDetected) 05/25/22 12:51 SARS-CoV-2, RNA, NAAT NEGATIVE (NEGATIVE) 05/25/22 15:30 Impressions Abdomen/Pelvis CT 05/25/22 09:54 CT SCAN OF THE ABDOMEN AND PELVIS WITH IV CONTRAST CLINICAL HISTORY: Lower abdominal pain. Hematochezia. COMPARISON STUDY: Abdominal CT dated 03/08/2021. TECHNIQUE: Following the IV administration of 94 cc of Optiray 320, CT scan of the abdomen and pelvis is performed from the lung bases to the proximal femora. Images are reviewed in the axial, sagittal, and coronal planes. IV contrast was administered without complication. A dose lowering technique was utilized adhering to the principles of ALARA. CT DOSE: 1461.00 mGy.cm FINDINGS: Lung bases: The heart is normal in size and without pericardial effusion. There is a small fat-containing Bochdalek hernia at the right lung base. There are scattered calcified granulomas. The lung bases are otherwise clear noting dependent scarring/atelectasis. A tiny hiatal hernia is noted. Liver: The contrast-enhanced liver is normal in size, contour, and attenuation. There is no intrahepatic biliary ductal dilatation. The hepatic veins and portal veins are patent. Gallbladder: Surgically absent noting clips in the gallbladder fossa. Spleen: Normal in size and attenuation. Pancreas: Unremarkable. Adrenal glands: Unremarkable. Kidneys: The contrast enhanced kidneys are normal in size and without hydronephrosis. The kidneys enhance symmetrically. Abdominal vasculature: The abdominal aorta is normal in course and caliber noting moderate to advanced atherosclerotic calcification. 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 This is similar to previous. Bowel: There is moderate to advanced colonic diverticulosis of the left colon without CT evidence of acute diverticulitis. No bowel obstruction is identified. There is mild infiltration identified around the distal descending colon and the sigmoid suggesting a mild colitis. The appendix is well-visualized and normal. Peritoneum: There is no intraperitoneal free air or abdominal ascites. Lymphadenopathy: None. Pelvic viscera: The bladder is normal as visualized. The uterus is surgically absent. No adnexal lesion is seen. Skeletal structures: The skeletal structures are osteopenic. There is mild lumbosacral spondylosis. No lytic or blastic lesions are seen. IMPRESSION: 1. There is evidence of a mild nonspecific colitis of the left colon. Clinical correlation will be required. 2. Colonic diverticulosis without CT evidence of acute diverticulitis. 3. Additional findings as above. ACT 112: Negative or not required by law. Electronically signed by: Jose Rowell M.D. 05/25/2022 12:00 PM Medications Administered Current Inpatient Medications Acetaminophen (Acetaminophen 325 Mg Tab) 650 mg PO Q4H PRN PRN Reason: pain/fever Stop: 06/24/22 18:09 Last Admin: 05/26/22 08:05 Dose: 650 mg Albuterol (Albuterol Hfa 8 Gm Inhaler) 2 puffs INH Q6H PRN; Protocol PRN Reason: Shortness Of Breath Or Wheezin Stop: 06/24/22 18:09 Aspirin (Aspirin 81 Mg Ectab) 81 mg PO QPM RUDY Stop: 06/24/22 20:59 Last Admin: 05/25/22 21:57 Dose: 81 mg Azelastine HCl (Azelastine Hcl 0.1% Nasal 200 Sprays/27,400 Mcg Btl) 1 sprays JOE BID PRN PRN Reason: Nasal Congestion Stop: 06/24/22 18:09 Baclofen (Baclofen 10 Mg Tab) 10 mg PO BID PRN PRN Reason: Muscle Pain Stop: 06/24/22 18:09 Carbamazepine (Carbamazepine 200 Mg Tabcr) 400 mg PO BID RUDY Stop: 06/24/22 20:59 Last Admin: 05/26/22 08:07 Dose: 400 mg Ezetimibe (Ezetimibe 10 Mg Tablet) 10 mg PO HS RUDY Stop: 06/24/22 20:59 Last Admin: 05/25/22 21:58 Dose: 10 mg Fluticasone/Vilanterol (Fluticasone/Vilanterol 100/25mcg 14 Puffs/Inhaler) 1 puffs INH DAILY RUDY Stop: 06/25/22 08:59 Last Admin: 05/26/22 08:08 Dose: 1 puffs Promethazine HCl 12.5 mg/ (Sodium Chloride) 50.5 mls @ 202 mls/hr IV Q6H PRN PRN Reason: Nausea And Vomiting Stop: 06/24/22 18:09 Last Infusion: 05/26/22 01:33 Dose: Infused Lactated Ringer's (Lr) 1,000 mls @ 125 mls/hr IV .Q8H RUDY Stop: 06/24/22 18:09 Last Admin: 05/26/22 11:07 Dose: 125 mls/hr Levothyroxine Sodium (Levothyroxine Sodium 150 Mcg Tablet) 150 mcg PO DAILYBB [facility] Stop: 06/25/22 06:29 Last Admin: 05/26/22 05:50 Dose: 150 mcg Montelukast Sodium (Montelukast Sodium 10 Mg Tablet) 10 mg PO QPM RUDY Stop: 06/24/22 20:59 Last Admin: 05/25/22 21:58 Dose: 10 mg Multivitamins/Minerals (Calcium 600mg + Vit D 400 Iu Tab) 1 tab PO BID RUDY Stop: 06/24/22 20:59 Last Admin: 05/26/22 08:08 Dose: 1 tab Ondansetron HCl (Ondansetron Inj 2 Mg/Ml 2 Ml Vial) 4 mg IV Q6H PRN PRN Reason: Nausea Stop: 06/24/22 18:09 Last Admin: 05/26/22 08:05 Dose: 4 mg Pantoprazole Sodium (Pantoprazole 40 Mg Tab) 40 mg PO DAILY RUDY Stop: 06/25/22 08:59 Last Admin: 05/26/22 08:08 Dose: 40 mg Simethicone (Simethicone 80 Mg Chew) 80 mg PO Q6H PRN PRN Reason: Gas or Constipation Stop: 06/25/22 09:49 Topiramate (Topiramate 100 Mg Tab) 200 mg PO BID RUDY Stop: 06/24/22 20:59 Last Admin: 05/26/22 08:07 Dose: 200 mg Vitamin D (Cholecalciferol 1,000 Units 25 Mcg Tab) 1,000 units PO BID RUDY Stop: 06/24/22 20:59 Last Admin: 05/26/22 08:07 Dose: 1,000 units Resident Activity Tracking Resident Involvement: Resident Care Provided Care Provided: Adult Hospital Medicine
[2022-05-26] MEDS: ACETAMINOPHEN 325 MG TAB PO PRN ×2 (08:05→15:45)
[2022-05-26] MEDS: ONDANSETRON INJ 2 MG/ML 2 ML VIAL IV PRN (08:05)
[2022-05-26] MEDS: TOPIRAMATE 100 MG TAB PO SCH ×2 (08:07→20:28)
[2022-05-26] MEDS: CHOLECALCIFEROL 1,000 UNITS 25 MCG TAB PO SCH ×2 (08:07→20:31)
[2022-05-26] MEDS: CALCIUM 600MG + VIT D 400 IU TAB PO SCH ×2 (08:08→20:27)
[2022-05-26] MEDS: PANTOprazole 40 MG TAB PO SCH (08:08)
[2022-05-26] MEDS: FLUTICASONE/VILANTEROL 100/25MCG 14 PUFFS/INHALER INH SCH (08:08)
[2022-05-26] MEDS ORDERED: SIMETHICONE 80 MG CHEW PO ONE (08:27)
[2022-05-26] MEDS ORDERED: SIMETHICONE 80 MG CHEW PO PRN (09:50)
--- NOTE | 2022-05-26 18:35 | Billing Data ---
Date of Service May 26, 2022 Coding Level of Care Code 73816 Subseq Obs Care Lvl 2
[2022-05-26] MEDS: MONTELUKAST SODIUM 10 MG TABLET PO SCH (20:27)
[2022-05-26] MEDS: ASPIRIN 81 MG ECTAB PO SCH (20:27)
[2022-05-26] MEDS: EZETIMIBE 10 MG TABLET PO SCH (20:28)
[2022-05-27] MEDS: LACTATED RINGER'S 1,000 ML IV SCH (02:25)
[2022-05-27] MEDS: LEVOTHYROXINE SODIUM 150 MCG TABLET PO SCH (05:40)
[2022-05-27 06:37] LABS: Hematocrit (blood only) 37.8 % (34.1-44.9); Hemoglobin 11.9 g/dl (12.0-16.0); Mean Corpuscular Hemoglobin 29.3 pg (25.0-34.0); Mean Corpuscular Hgb Conc 31.5 g/dL (32.0-36.0); Mean Corpuscular Volume 93.1 fL (80.0-100.0); Mean Platelet Volume 8.9 fL (9.4-12.3); Platelet Count 215 K/uL (130-400); RDW Standard Deviation 44.2 fL (36.4-46.3); Red Blood Count 4.06 M/uL (3.93-5.22); White Blood Count 12.22 K/ul (4.8-10.8)
--- NOTE | 2022-05-27 06:55 | Hospitalist Progress Note ---
Date of Service May 27, 2022 Assessment & Plan (1) E. coli colitis: Plan: 72 year old female PMH diverticulosis anxiety DONNY HTN HLD morbid obesity GERD hypothyroidism who presents to the ER with severe abdominal pain, nausea and diarrhea ongoing 1 day 1) E. coli colitis: Given frequency and severity of pain and blood in stool will give azithromycin 1g PO ONCE Otherwise conservative therapy consisting of LR @ 125 ml/hr; anti-emetics with ondansetron 1st line and Phenergan 2nd line; pain medication with acetaminophen 1st line, Toradol 2nd line UA grossly positive for no urinary symptoms over than suprapubic pain - follow up urine culture continue IVF and clear liquid diet for now (2) Trigeminal neuralgia: Continue carbamazepine and Topamax Baclofen PRN (3) Asthma: Continue Breo Ellipta (4) Hypothyroid: Continue levothyroxine (5) GERD (gastroesophageal reflux disease): Continue pantoprazole Given simethecone for gas, available PRN ()DONNY -CPAP hs ()HTN -wnl in hospital, hold lisinopril for now Plan VTE Prophylaxis - low risk as mobile and likely short duration of illness, chemical prophylaxis deferred Diet - clear liquids, advance as tolerated Disposition - observation status to med/surg (2) Anxiety disorder: (3) Anxiety: (4) HTN (hypertension): (5) Hyperlipidemia: (6) Hypothyroid: (7) DONNY (obstructive sleep apnea): (8) Urinary incontinence: Admission and Anticipated Discharge Date Admission Date: May 25, 2022 Results & Data Results & Data ([facility]) Vital Signs (Past 12 Hours) Vital Signs Temp Pulse Pulse Resp BP Pulse Ox O2 Del Method 05/26/22 23:42 37.4 C 73 18 126/73 95 Room Air 05/26/22 22:20 77 10 L 97 FiO2 05/26/22 23:42 05/26/22 22:20 21
[2022-05-27 07:07] LABS: BUN Creatinine Ratio 10.5 (10-20); Calcium 8.3 mg/dl (8.5-10.1); Creatinine Clr Calc Pharmacy 77.4 ml/min; Est GFR (African American) 90.2 ml/min; Est GFR (Non-African American) 77.8 ml/min; Potassium 3.4 mmol/L (3.5-5.1)
[2022-05-27] MEDS: CALCIUM 600MG + VIT D 400 IU TAB PO SCH (08:09)
[2022-05-27] MEDS: CHOLECALCIFEROL 1,000 UNITS 25 MCG TAB PO SCH (08:09)
[2022-05-27] MEDS: PANTOprazole 40 MG TAB PO SCH (08:10)
[2022-05-27] MEDS: FLUTICASONE/VILANTEROL 100/25MCG 14 PUFFS/INHALER INH SCH (08:10)
[2022-05-27] MEDS: TOPIRAMATE 100 MG TAB PO SCH (08:10)
--- NOTE | 2022-05-27 12:14 | Discharge Summary ---
Date of Service May 27, 2022 Admission HPI Per Admitting Provider Anita Box is a 72 year old female who presents to the ER with severe abdominal pain, nausea and diarrhea since 4am today. Reportedly she had a positive COVID test at the beginning of May. Having a bowel movement every 15 minutes. become more fluid. Passing bright red blood in stool. Stool PCR positive for enteropathogenic E. coli and non-specific colitis seen on CT. However despite conservative measures in the emergency room with pain medication and anti- emetics she is still vomiting, and unable to keep up with her oral intake therefore she was referred to medicine for admission ongoing management of this. Admission Exam Per Admitting Provider Constitutional: WD/WN, vitals as above Eyes: + anicteric sclerae; normal pupil size ENMT: Mouth: + dry oral mucous membranes Neck: trachea midline, no thyromegaly Cardiovascular: RRR, no murmur, no edema Gastrointestinal (Abdomen): Inspection/Auscultation: + hypoactive bowel sounds Percussion/Palpation: + abdomen tender (suprapubic), + guarding and abdomen soft; abdomen not rigid Musculoskeletal: no cyanosis or clubbing, extremities motor strength 5/5 Skin: no rashes, warm and dry Neurologic: moves all extremities and awake; not confused Psychiatric: A+Ox3, euthymic affect Genitourinary: no CVA tenderness Principal Diagnosis Bacterial Colitis Discharge Exam Constitutional WD/WN, vitals as above Eyes PERRL, conjunctivae normal, anicteric sclerae ENMT external ear and nose normal, oropharynx normal Neck trachea midline, no thyromegaly Respiratory normal respiratory effort, lungs clear to auscultation Cardiovascular RRR, no murmur, no edema Chest (Breasts) Chest: normal inspection of chest Gastrointestinal (Abdomen) normal bowel sounds, soft, nontender, no hepatosplenomegaly Skin no rashes, warm and dry Discharge Data Allergies Allergy/AdvReac Type Severity Reaction Status Date / Time nitrous oxide Allergy Severe laughing Verified 05/25/22 16:27 gas = couldn't breath NSAIDS (Non-Steroidal Allergy Severe RAPID HR, Verified 05/25/22 16:27 Anti-Inflamma RESP DISTRESS etodolac Allergy Unknown RAPID Verified 05/25/22 16:27 HEARTBEAT, RESPIRATORY DISTRESS naproxen Allergy Unknown RAPID Verified 07/22/22 16:27 HEART BEATS, RESPIRATORY DISTRESS morphine Allergy trouble Verified 05/25/22 16:27 breathing ibandronate sodium AdvReac Severe SEVERE Verified 05/25/22 16:27 MUSCLE AND BONE PAIN Ditropan Allergy Unknown Unknown Uncoded 05/25/22 16:27 hydroCHLOROthiazide TABS Allergy Unknown Unknown Uncoded 05/25/22 16:27 Lodine TABS Allergy Unknown Unknown Uncoded 05/25/22 16:27 Septra TABS Allergy Unknown Unknown Uncoded 05/25/22 16:27 Consultations 05/25/22 15:18 ED Decision to Admit Stat Ordered Studies 05/25/22 09:54 CT abd pelvis IV con only Stat Hospital Course (1) E. coli colitis: 72 year old female PMH diverticulosis anxiety DONNY HTN HLD morbid obesity GERD hypothyroidism who presents to the ER with severe abdominal pain, nausea and diarrhea ongoing 1 day 1) E. coli colitis: Given frequency and severity of pain and blood in stool will give azithromycin 1g PO ONCE. PCR positive for EPEC ecoli, CT A/P showed colitis but no diverticulitis. Likely a combination of bacterial colitis and diverticular or internal hemorrhoidal bleed, last colonoscopy last year. Conservative therapy with IVF; anti-emetics with ondansetron and Phenergan; pain medication with acetaminophen. UA grossly positive for no urinary symptoms over than suprapubic pain, urine culture unremarkable. Patient advanced from clear liquid diet to regular diet as tolerated. (2) Trigeminal neuralgia: Continue carbamazepine and Topamax, Baclofen PRN (3) Asthma: Continue Breo Ellipta (4) Hypothyroid: Continue levothyroxine (5) GERD (gastroesophageal reflux disease): Continue pantoprazole, Given simethecone for gas. ()DONNY CPAP nightly while in hospital ()HTN Wnl in hospital, may resume home lisinopril in outpatient (2) Anxiety disorder: (3) Anxiety: (4) HTN (hypertension): (5) Hyperlipidemia: (6) Hypothyroid: (7) DONNY (obstructive sleep apnea): (8) Urinary incontinence: Total Time Total Time Spent Total Time Spent (In Minutes): see attending attestation Discharge Plan Discharge Items Patient Disposition: Home - Self-Care Reason For Visit: E. COLI COLITIS Discharge Diagnosis: Ecoli Colitis Activity: Resume your previous activity Non-emergency contact: Primary Care Provider Call non-emergency contact if: you have any medication questions, your symptoms worsen, your pain is not controlled and you have a fever Follow-up/Referrals: Cesar Crenshaw MD [Primary Care Provider] - Diet: Regular Addtl Attending Provider Instructions: You were admitted to the hospital for Colitis, which is inflammation of your colon. You were treated with a one time dose of antibiotics, as well as IV fluids, and kept on a liquid diet. During this time your abdominal pain and diarrhea have improved, and will continue to improve over the next 2 weeks. You may resume a regular diet as toelrated at this time. Please follow up with your PCP within 1 week of discharge. A discharge summary will be sent to your primary care physician to ensure continuity of care. Please bring this discharge summary with you to your next office appointment so that your provider can review it at that time. Follow-up appointments: Make a follow-up appointment with your PCP within the next week. It is very important that you follow up with them shortly after discharge from the hospital. Keep all your follow-up appointments as already scheduled. If you cannot make an appointment, notify your provider. Medications: Your medication list has been reviewed and reconciled upon discharge to ensure accuracy and continuity of care. An updated list of all your medications is included with your hospital discharge paperwork. Please review this list closely, and make note of any changes. Take your medications as instructed; do not skip a dose of your medicines. Make sure all of your doctors know every medicine you are taking (including [id number] medicines, vitamins, and supplements). Call your primary care provider before taking any new medicines (including [id number] medicines, vitamins, and supplements), because some of these may interact with your current medications, or may make your symptoms worse. Tell your primary care provider if you cannot afford your medications. CONTACT YOUR PRIMARY CARE PROVIDER if you experience any of the following: Fever, Chills, Difficulty breathing Intractable nasuea or diarrhea, bloody stool Difficulty following your treatment plan, or difficulty taking medications CALL 911 OR GO TO THE EMERGENCY DEPARTMENT if you experience any of the following: Sudden, severe abdominal pain or nausea/vomiting Severe chest pain, or chest pain that radiates (moves) to your jaw or arm Sudden, severe shortness of breath or difficulty breathing Thank you for allowing us to participate in your care. Pending Studies at Discharge: No Stand-Alone Forms: My [facility], Smoking Cessation Medications and DC Order Prescriptions: Continued carbamazepine 400 mg tablet extended release 12 hr 400 mg PO BID 90 Days Qty: 180 1RF topiramate [Topamax] 200 mg tablet 200 mg PO BID 90 Days Qty: 180 1RF ezetimibe 10 mg tablet 10 mg PO HS Qty: 90 1RF cyanocobalamin (vitamin B-12) 1,000 mcg/mL solution 1,000 mcg subcut .COMPLEX Qty: 4 1RF Rx Instructions: 1,000 mcg subcut WEEKLY FOR 4 WEEKS; THEN ONCE A MONTH; lisinopril 40 mg tablet 40 mg PO QPM Qty: 90 1RF Breo Ellipta 100-25 mcg/dose blister with device 1 inh inhalation DAILY Qty: 60 12RF Rx Instructions: needs Breo brand for insurance aspirin 81 mg tablet,delayed release (DR/EC) 81 mg PO QPM Qty: 30 albuterol sulfate 90 mcg/actuation HFA aerosol inhaler 2 puff inhalation Q6H PRN (Reason: Shortness Of Breath Or Wheezing) Qty: 18 3RF pantoprazole [Protonix] 40 mg tablet,delayed release (DR/EC) 40 mg PO DAILY levothyroxine 150 mcg tablet 150 mcg PO DAILY Qty: 90 3RF calcium carbonate-vitamin D3 [Caltrate with Vitamin D3] 600 mg(1,500mg) -800 unit Tablet 1 tab PO BID montelukast [Singulair] 10 mg Tablet 10 mg PO QPM cholecalciferol (vitamin D3) [Vitamin D3] 25 mcg (1,000 unit) Tablet 25 mcg PO BID acetaminophen [Tylenol Extra Strength] 500 mg Tablet 1,000 mg PO Q6H PRN (Reason: Pain) azelastine 137 mcg (0.1 %) aerosol,spray 1 spray INTRANASAL BID PRN (Reason: Nasal Congestion) baclofen 10 mg tablet 10 mg PO BID PRN (Reason: Muscle Pain) Discharge Orders: Discharge Order (Routine); Ordered 05/27/22 Ordered By: Nusrat James/Other Patient Handouts: ED Diarrhea, Bacterial (Adult) Admission Data Admit Date/Time: 05/25/22 16:02 Attending Provider: Erwin Gardiner Admit Provider: Deon Nelson Primary Care Provider: Cesar Crenshaw Other Providers: Deon Nelson Other Interventions: Discharge Summary Assessment (RN) Last Done: 05/27/22 12:14 Supervising Physician Co-Signing Physician Notes I personally examined the patient and verified all gusman points of history and exam, discussed case, and agree with decision making with Dr Gold. abd discomfort improved, diarrhea far less red far more brown, less frequent. eating without pain/nausea/vomiting. Vitals noted, in general she is awake and alert fatigued but no distress. HEENT normocephalic atraumatic mucous membranes moist. Breathing unlabored no accessory muscle use good effort. Skin shows no rashes no pallor or icterus. EPEC/infectious diarrheagiven Zithromax. Symptoms improving. eating and drinking well, safe/stable for home. leukocytosis likely reactive. last colo last year - so unless GI feels that f/u colo is warranted, may be able to forego. stable for home, otherwise as above Resident Activity Tracking Resident Involvement: Resident Care Provided Care Provided: Adult Hospital Medicine
--- NOTE | 2022-05-27 16:55 | Billing Data ---
Date of Service May 27, 2022 Coding Level of Care Code 57512 OBS Care - Discharge
== END 2022-05-27 15:43 | disposition home or self-care (01) ==
LOC: ED 09:22 → 3W 09:22 → SUATTDRO 16:02 → 3W 17:51